=== PATIENT | male | born 1955 | race Caucasian/White ===

== ENCOUNTER 2019-12-15 12:53 | Emergency (ER) | payer MEDICARE, SELFPAY ==
[2019-12-15 12:46] VITALS: BP 127/76; PULSE 54; RESP 16; TEMP 36.6; O2SAT 93; BMI 37.0
[2019-12-15 12:54] VITALS: BP 127/76; PULSE 54; RESP 16; O2SAT 94
--- NOTE | 2019-12-15 12:56 | ED_ITS ---
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 It lasted about 30-45 minutes. Bending over and coughing seemed to make it worse. Pain is described in the center of his chest. He received Nitro x1, Asa 324mg, and Fentanyl 100mcg while in route with EMS. He reports he does have h/o heart issue . He states he was working in [place] when he had a heart attack in the past. He last had a stress test 2-3 years ago in [place] . He saw his PCP this am, stress test ordered, pt was taken off Naproxen, had been taking it for arthritis in his knee and chronic lower back pain. Pt is a daily smoker. He denies drug use. 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) Associated symptoms: Reports dyspnea Review of Systems General: Reports: 10 or more systems reviewed and unremarkable except in HPI and below Card: Reports: chest pain Resp: Reports: shortness of breath PFS ED PFSH: Statuses (acute, chronic, etc) shown below reflect problem list status as previously entered and may not be historically accurate Medical History (Updated 12/15/19 @ 16:08 by Woody Hudson DO) COPD (chronic obstructive pulmonary disease) GERD (gastroesophageal reflux disease) Seizure TIA (transient ischemic attack) Surgical History (Updated 12/15/19 @ 13:08 by Jose Rodriguez LPN) H/O knee surgery LEFT History of tonsillectomy and adenoidectomy Family History (Updated 11/04/19 @ 11:40 by Aura Britt LPN) Father Alzheimer disease Mother COPD (chronic obstructive pulmonary disease) CAD (coronary artery disease) Diabetes Stroke Cancer Hypertension Brother COPD (chronic obstructive pulmonary disease) Sister Stroke Other Glaucoma Social History Smoking and tobacco status: current some day smoker Physical Exam Const: COMMON NORMALS: no apparent distress, average body habitus, oriented x3, no limitations, healthy appearing, alert and well nourished HENMT: COMMON NORMALS: normocephalic, head/scalp atraumatic, hearing grossly normal bilaterally, external ears normal, external nose normal and moist oral mucous membranes HEAD & SCALP: normocephalic and atraumatic NOSE: external nose normal EXTERNAL EAR: Yes external ears normal Eye: COMMON NORMALS: PERRL, EOMs intact bilaterally, conjunctivae normal and no scleral icterus CONJUNCTIVA: Yes conjunctivae normal PUPIL: Yes PERRL Neck/C-Spine: COMMON NORMALS: full ROM, no lymphadenopathy, supple, no meningeal signs and no JVD Chest: COMMONS NORMALS: inspection of chest normal and palpation of chest normal Resp: COMMON NORMALS: normal respiratory effort, no retractions, no use of accessory muscles, clear to auscultation bilaterally and percussion normal AUSCULTATION: clear to auscultation bilaterally PERCUSSION: percussion normal Cardio: COMMON NORMALS: no JVD, regular rate, regular rhythm, S1 normal heart sound, S2 normal heart sound, no gallops, no clicks, no murmurs, no rub and peripheral pulses 2+ throughout RATE: regular rate RHYTHM: regular rhythm HEART SOUNDS: S1 normal and S2 normal PERIPHERAL PULSES: pulses 2+ throughout GI: COMMON NORMALS: normal to inspection, nondistended, normoactive bowel sounds, soft to palpation, non-tender, no hepatosplenomegaly, no masses and no bruits PALPATION: Yes soft and Yes no hepatosplenomegaly Extremity: COMMON NORMALS: normal to inspection, full ROM, normal capillary refill, no clubbing, cyanosis or edema, no calf tenderness and no pedal edema Neuro: COMMON NORMALS: oriented x3 SENSORIUM/ORIENTATION: Yes alert MENINGEAL SIGNS: Yes no meningeal signs Skin: COMMON NORMALS: no rashes or lesions noted, no wounds, skin turgor normal, no jaundice, no petechiae and no mottling GENERAL SKIN EXAM: no rashes or lesions noted and turgor normal Course Vital Signs: Vital signs: Vital Signs Temperature 97.8 F 12/15/19 12:46 Pulse Rate 52 L 12/15/19 14:22 Respiratory Rate 16 12/15/19 12:54 Blood Pressure 135/79 12/15/19 14:22 Pulse Oximetry 95 12/15/19 14:22 MDM - Chest Pain Lab Data: Attestation: I reviewed the patient's lab results. Labs: Lab Results 12/15/19 12/15/19 12/15/19 Range/Units 13:03 13:03 13:03 WBC 6.5 (4.0-10.0) 10^3/ uL RBC 4.89 (4.1-5.3) 10^6/u L Hgb 14.7 (11.7-16.6) g/dL Hct 42.3 (42.0-52.0) % MCV 86.5 (80-94) fL MCH 30.1 (28.0-34.0) pg MCHC 34.8 (30.0-36.0) g/dL RDW 12.0 L (12.1-15.1) % Plt Count 286 (130-400) 10^3/c mm MPV 10.1 (7.4-10.4) fL Neut % (Auto) 52.9 % Lymph % (Auto) 31.7 % [place] % (Auto) 10.9 % Eos % (Auto) 3.4 % Baso % (Auto) 0.8 % Neut # (Auto) 3.4 (1.8-7.7) 10^3/u L Lymph # (Auto) 2.1 (0.8-4.8) 10^3/u L [place] # (Auto) 0.7 (0.2-0.9) 10^3/u L Eos # (Auto) 0.2 (0.0-0.8) 10^3/u L Baso # (Auto) 0.1 (0.0-0.1) 10^3/u L Nucleated RBC % (a uto) 0 % Nucleated RBCs # 0.0 /100WBC Sodium 139 (136-145) mmol/L Potassium 4.6 (3.5-5.1) mmol/L Chloride 102 (98-107) mmol/L Carbon Dioxide 23 (22-29) mmol/L Anion Gap 18.6 (5-19) BUN 14 (8-23) mg/dL Creatinine 1.2 (0.7-1.2) mg/dL GFR Calculation 61.0 L (90-130) mL/min Glucose 108 (65-115) mg/dL Calcium 10.2 (8.5-10.5) mg/dL Total Bilirubin 0.3 (0.15-1.2) mg/dL AST 19 (0-40) U/L ALT 17 (0-41) U/L Alkaline Phosphata se 74 (40-130) IU/L Troponin T Baselin e 11 (0-15) ng/mL Troponin T 120 Min alfonso (0-15) ng/mL Delta Troponin T (0-10) ABS# NT-Pro-B Natriuret Pep 23 (0-125) pg/mL Total Protein 7.6 (6.6-8.7) g/dL Albumin 4.3 (3.5-5.2) g/dL Globulin 3.3 (1.3-4.6) g/dL 12/15/19 Range/Units 15:16 WBC (4.0-10.0) 10^3/ uL RBC (4.1-5.3) 10^6/u L Hgb (11.7-16.6) g/dL Hct (42.0-52.0) % MCV (80-94) fL MCH (28.0-34.0) pg MCHC (30.0-36.0) g/dL RDW (12.1-15.1) % Plt Count (130-400) 10^3/c mm MPV (7.4-10.4) fL Neut % (Auto) % Lymph % (Auto) % [place] % (Auto) % Eos % (Auto) % Baso % (Auto) % Neut # (Auto) (1.8-7.7) 10^3/u L Lymph # (Auto) (0.8-4.8) 10^3/u L [place] # (Auto) (0.2-0.9) 10^3/u L Eos # (Auto) (0.0-0.8) 10^3/u L Baso # (Auto) (0.0-0.1) 10^3/u L Nucleated RBC % (a uto) % Nucleated RBCs # /100WBC Sodium (136-145) mmol/L Potassium (3.5-5.1) mmol/L Chloride (98-107) mmol/L Carbon Dioxide (22-29) mmol/L Anion Gap (5-19) BUN (8-23) mg/dL Creatinine (0.7-1.2) mg/dL GFR Calculation (90-130) mL/min Glucose (65-115) mg/dL Calcium (8.5-10.5) mg/dL Total Bilirubin (0.15-1.2) mg/dL AST (0-40) U/L ALT (0-41) U/L Alkaline Phosphata se (40-130) IU/L Troponin T Baselin e (0-15) ng/mL Troponin T 120 Min alfonso 9.63 (0-15) ng/mL Delta Troponin T -1.37 L (0-10) ABS# NT-Pro-B Natriuret Pep (0-125) pg/mL Total Protein (6.6-8.7) g/dL Albumin (3.5-5.2) g/dL Globulin (1.3-4.6) g/dL Imaging Data^: CXR: Attestation: I personally reviewed and interpreted this imaging study as follows: Radiologist's impression: Patient: Melvin Leiva #: [id number] : 5Acct#:[id number] Age/Sex: 64 / MADM Date: 12/15/19 [facility] Attending Dr: Ordering Provider/Ordering MD: Woody Hudson DO Date of Service: 12/15/19 Procedure(s): XR chest 1V portable [id number] Accession Number(s): [id number] Report Number: [id number] WS: [id number] Portable AP upright chest, 12/15/2019 Clinical Data: chest pain Comparison: Portable chest, 08/04/2019. Findings: No nodules, masses or effusions are seen. The heart is normal. The pulmonary vascularity is not increased. No pneumonia or pneumothorax is seen. The aortic arch and descending aorta minimally tortuous. Monitor leads on the chest wall. XR/XR chest 1V portable [id number] Impression: Atherosclerosis. Dictated By:Mariangel Spangler MD EKG Data^: EKG 1: Attestation: I personally reviewed and interpreted this EKG as follows: Prior EKG tracings: available for review Computer generated interpretation: Date of Service: 12/15/19 Procedure(s): ECG 12 lead EKG Accession Number(s): [id number] Report Number: [id number] Measurements Intervals [place] Rate: 53 P: 20 MO: 136 QRS: -5 QRSD: 116 T: 11 QT: 429 QTc: 403 SINUS BRADYCARDIA INCOMPLETE RIGHT BUNDLE BRANCH BLOCK [90+ ms QRS DURATION, TERMINAL R IN V1/V2, 40+ 40+ 40+ 40+ ms S IN I/aVL/V4/V5/V6] VOLTAGE CRITERIA FOR LVH [MEETS CRITERIA IN ONE OF: R(aVL), S(V1), R(V5), R(V (V5/V6)+S(V1)] Compared to ECG 08/04/2019 14:28:58 No significant changes [id number] [id number] EKG 2: Attestation: I personally reviewed and interpreted this EKG as follows: Computer generated interpretation: Date of Service: 12/15/19 Procedure(s): ECG 12 lead EKG Accession Number(s): [id number] Report Number: [id number] Measurements Intervals [place] Rate: 50 P: 18 MO: 144 QRS: -5 QRSD: 122 T: 13 QT: 416 QTc: 380 SINUS BRADYCARDIA POSSIBLE RIGHT VENTRICULAR CONDUCTION DELAY [RSR (QR) IN V1/V2] VOLTAGE CRITERIA FOR LVH [MEETS CRITERIA IN ONE OF: R(aVL), S(V1), R(V5), R(V5/V6)+S(V1)] POSSIBLE LATERAL MYOCARDIAL INFARCTION , PROBABLY OLD [30 ms Q WAVE IN I/aVL/V5/V6] Compared to ECG 08/04/2019 14:28:58 Myocardial infarct finding now present Incomplete right bundle-branch block no longer present [id number] [id number] Discharge Plan Discharge Patient Disposition: Home, Self-Care Clinical Impression: Chest pain Qualifiers: Chest pain type: other chest pain Qualified Code(s): R07.89 - Other chest pain Condition: Stable Prescriptions: New ibuprofen 800 mg tablet 800 mg PO QID PRN (Reason: pain) Qty: 20 RF: 0 No Action ranitidine HCl [Zantac Maximum Strength] 150 mg tablet 300 mg PO BID RF: 0 potassium chloride [Klor-Con 10] 10 mEq tablet extended release 10 meq PO DAILY RF: 0 albuterol sulfate [ProAir HFA] 90 mcg/actuation HFA aerosol inhaler 2 puff INHALATION Q6H PRN (Reason: Shortness Of Breath) RF: 0 divalproex 250 mg tablet,delayed release (DR/EC) 250 mg PO TID RF: 0 mecobalamin (vitamin B12) 5,000 mcg tablet,disintegrating 5,000 mcg PO DAILY RF: 0 omega-3 fatty acids 1,000 mg capsule 1,000 mg PO DAILY RF: 0 aspirin 81 mg tablet,delayed release (DR/EC) 81 mg PO DAILY RF: 0 diphenhydramine HCl [Allergy Relief(diphenhydramin)] 25 mg capsule 50 mg PO DAILY PRN (Reason: Allergy Symptoms) RF: 0 atorvastatin 20 mg Tablet 20 mg PO DAILY RF: 0 lisinopril 10 mg tablet 10 mg PO DAILY RF: 0 Luis's wort 300 mg Capsule 300 mg PO DAILY RF: 0 Symbicort 160-4.5 mcg/actuation HFA aerosol inhaler 2 puff INHALATION BID RF: 0 levetiracetam 500 mg tablet extended release 24 hr 500 mg PO BID RF: 0 Discharge Orders: Discharge Order (Routine); Ordered 12/15/19 Ordered By: Woody Hudson Referrals: Cece De Anda DO [Primary Care Provider] - Coding Level of Care Code ED Manager Legal for Chg Fwd Exam Problem Focused The documentation recorded by the Jennifer rosen Dani Elizabeth, LPN, accurately reflects the service I personally performed and the decisions made by Tristan rooney Donald P, DO Dec 15, 2019 12:53
--- NOTE | 2019-12-15 13:00 | XR_ITS ---
WS: [id number] Portable AP upright chest, 12/15/2019 Clinical Data: chest pain Comparison: Portable chest, 08/04/2019. Findings: No nodules, masses or effusions are seen. The heart is normal. The pulmonary vascularity is not increased. No pneumonia or pneumothorax is seen. The aortic arch and descending aorta minimally tortuous. Monitor leads on the chest wall. XR/XR chest 1V portable [id number] Impression: Atherosclerosis.
--- NOTE | 2019-12-15 13:00 | ECG_ITS ---
Measurements Intervals [place] Rate: 53 P: 20 [place]: 136 QRS: -5 QRSD: 116 T: 11 QT: 429 QTc: 403 SINUS BRADYCARDIA INCOMPLETE RIGHT BUNDLE BRANCH BLOCK [90+ ms QRS DURATION, TERMINAL R IN V1/V2, 40+ ms S IN I/aVL/V4/V5/V6] VOLTAGE CRITERIA FOR LVH [MEETS CRITERIA IN ONE OF: R(aVL), S(V1), R(V5), R(V (V5/V6)+S(V1)] Compared to ECG 08/04/2019 14:28:58 No significant changes Electronically Signed On 12-15-2019 19:59:25 PECAN SHELLER by Felix Mays M.D. [id number] ken
[2019-12-15 13:13] LABS: Basophils # 0.1 10^3/uL (0.0-0.1); Basophils % 0.8 %; Eosinophils # 0.2 10^3/uL (0.0-0.8); Eosinophils % 3.4 %; Hematocrit 42.3 % (42.0-52.0); Hemoglobin 14.7 g/dL (11.7-16.6); Lymphocytes # 2.1 10^3/uL (0.8-4.8); Lymphocytes % 31.7 %; Mean Corpuscular HGB Conc 34.8 g/dL (30.0-36.0); Mean Corpuscular Hemoglobin 30.1 pg (28.0-34.0); Mean Corpuscular Volume 86.5 fL (80-94); Mean Platelet Volume 10.1 fL (7.4-10.4); Monocytes # 0.7 10^3/uL (0.2-0.9); Monocytes % 10.9 %; Neutrophils # 3.4 10^3/uL (1.8-7.7); Neutrophils % 52.9 %; Nucleated Red Blood Cells % 0 %; Platelet Count 286 10^3/cmm (130-400); Red Blood Count 4.89 10^6/uL (4.1-5.3); White Blood Count 6.5 10^3/uL (4.0-10.0)
[2019-12-15 13:40] LABS: Troponin(5th) Baseline 11 ng/mL (0-15)
[2019-12-15 13:47] LABS: Alanine Aminotransferase 17 U/L (0-41); Albumin Level 4.3 g/dL (3.5-5.2); Alkaline Phosphatase 74 IU/L (40-130); Anion Gap 18.6 (5-19); Aspartate Amino Transferase 19 U/L (0-40); Blood Urea Nitrogen 14 mg/dL (8-23); Calcium 10.2 mg/dL (8.5-10.5); Carbon Dioxide 23 mmol/L (22-29); Chloride 102 mmol/L (98-107); Globulin 3.3 g/dL (1.3-4.6); Glucose 108 mg/dL (65-115); NT Pro B Type Natriuretic Pept 23 pg/mL (0-125); Potassium 4.6 mmol/L (3.5-5.1); Sodium 139 mmol/L (136-145); Total Bilirubin 0.3 mg/dL (0.15-1.2); Total Protein 7.6 g/dL (6.6-8.7)
[2019-12-15 14:22] VITALS: BP 135/79; PULSE 52; O2SAT 95
[2019-12-15 15:55] LABS: Troponin 5 2HR 9.63 ng/mL (0-15); Troponin 5 2HR Delta -1.37 ABS# (0-10)
[2019-12-15 16:24] VITALS: BP 136/82; PULSE 57; RESP 17; O2SAT 94
--- NOTE | 2019-12-15 19:00 | ECG_ITS ---
Measurements Intervals [place] Rate: 50 P: 18 [place]: 144 QRS: -5 QRSD: 122 T: 13 QT: 416 QTc: 380 SINUS BRADYCARDIA POSSIBLE RIGHT VENTRICULAR CONDUCTION DELAY [RSR (QR) IN V1/V2] VOLTAGE CRITERIA FOR LVH [MEETS CRITERIA IN ONE OF: R(aVL), S(V1), R(V5), R (V5/V6)+S(V1)] POSSIBLE LATERAL MYOCARDIAL INFARCTION , PROBABLY OLD [30 ms Q WAVE IN I/aVL/V5/V6] Compared to ECG 08/04/2019 14:28:58 Myocardial infarct finding now present Incomplete right bundle-branch block no longer present Electronically Signed On 12-15-2019 20:09:06 REVENUE COLLECTOR by Felix Mays M.D. [id number]
== END 2019-12-15 16:25 | disposition home or self-care (01) ==
PROVIDERS: Emergency Provider Family Medicine; Family Provider Family Medicine; PCP Family Medicine
DX: R07.89 Other chest pain (principal); Z79.82 Long term (current) use of aspirin; J44.9 Chronic obstructive pulmonary disease, unspecified; Z86.73 Personal history of transient ischemic attack (TIA), and cerebral infarction without residual deficits; F17.210 Nicotine dependence, cigarettes, uncomplicated; K21.9 Gastro-esophageal reflux disease without esophagitis
CPT/HCPCS: 36415; 71045; 80053; 83880; 84484; 85025; 93005; 99283; 99284

== ENCOUNTER 2020-03-02 19:07 | Emergency (ER) | payer MEDICARE, SELFPAY ==
[2020-03-02 19:18] VITALS: BMI 37.9
[2020-03-02 19:23] VITALS: BP 149/81; PULSE 77; RESP 16; TEMP 36.5; O2SAT 94
--- NOTE | 2020-03-02 19:25 | PC.NURSE ---
Patient states he was driving a lot today and was coming back from [place] and started having chest pain. Patient states the pain is located in the sternum. Patient states that the pain is 8/10 and feels like someone is poking him in the middle of his chest .
--- NOTE | 2020-03-02 19:55 | ECG_ITS ---
Measurements Intervals [place] Rate: 74 P: 42 [place]: 160 QRS: -18 QRSD: 110 T: 15 QT: 355 QTc: 395 SINUS RHYTHM INCOMPLETE RIGHT BUNDLE BRANCH BLOCK VOLTAGE CRITERIA FOR LVH [MEETS CRITERIA IN ONE OF: R(aVL), S(V1), R(V5), R(V (V5/V6)+S(V1)] Compared to ECG 12/15/2019 15:19:53 Incomplete right bundle-branch block now present Sinus bradycardia no longer present Myocardial infarct finding no longer present Electronically Signed On 03-03-2020 7:10:53 CDT by Debo Bowles M.D. [id number] f
--- NOTE | 2020-03-02 19:55 | XR_ITS ---
WS: [id number] PORTABLE CHEST HISTORY: chest pain. COMPARISON: 12/15/2019 Interstitial thickening throughout both lungs. New area of increasing consolidation in the RIGHT lowe r lobe. No pleural effusion or pneumothorax. Cardiac size: Mildly enlarged cardiac silhouette. Mediastinum/Aorta: Mild atherosclerosis aorta. No osseous abnormality seen. XR/XR chest 1V portable [id number] IMPRESSION: 1. New increasing opacification in the RIGHT lower lobe. May be an area of ate lectasis or pneumonia. 2. Chronic interstitial lung disease.
--- NOTE | 2020-03-02 20:19 | ED_ITS ---
HPI - Chest Pain General: Chief Complaint: Chest Pain Stated Complaint: cp Time Seen by Provider: 03/02/20 19:30 Source: patient Mode of arrival: ambulatory Limitations: no limitations History of Present Illness: MD complaint: chest pain Onset (ago): minute(s) (45) Timing of current episode: constant and still present Prior episodes: Yes Onset: during rest and during exertion Pain location: substernal Pain radiation: none Severity: severe Quality: sharp Relieving factors: nothing Exacerbating factors: exertion Associated symptoms: Deny abdominal pain, dyspnea, fever(s), nausea, palpitations or vomiting Treatment prior to arrival: none Review of Systems General: Reports: 10 or more systems reviewed and unremarkable except in HPI and below Const: Denies: fever, chills or body aches Eyes: Denies: change in vision or blurry vision ENMT: Denies: throat pain, enlarged tonsils, painful swallowing, hoarseness, mouth pain or swelling of lips/tongue Card: Reports: chest pain; Denies: palpitations, irregular heart rhythm, edema or swelling of feet/ankles Resp: Denies: shortness of breath, productive cough or non-productive cough GI: Denies: abdominal pain, nausea or vomiting : Denies: flank pain, painful urination, urinary frequency, urinary urgency or urinary hesitancy Musc: Denies: neck pain, back pain or extremity swelling Skin/Breast: Denies: rash, itching or redness Neuro: Denies: headache, numbness in extremities or weakness in extremities Endo: Denies: excessive urination, excessive thirst or tired all the time COUNT INCLUDES THE [facility] ED PFSH: Medical History (Updated 03/02/20 @ 22:47 by Adamaris [place] [facility] [place] COPD (chronic obstructive pulmonary disease) GERD (gastroesophageal reflux disease) Seizure TIA (transient ischemic attack) Surgical History (Updated 12/15/19 @ 13:08 by Jose Rodriguez LPN) H/O knee surgery LEFT History of tonsillectomy and adenoidectomy Family History (Updated 11/04/19 @ 11:40 by Aura Britt LPN) Father Alzheimer disease Mother COPD (chronic obstructive pulmonary disease) CAD (coronary artery disease) Diabetes Stroke Cancer Hypertension Brother COPD (chronic obstructive pulmonary disease) Sister Stroke Other Glaucoma Social History (Reviewed 12/15/19 @ 13:01 by LIZ Mccall Smoking and tobacco status: former smoker Physical Exam Const: COMMON NORMALS: no apparent distress, average body habitus, oriented x3, no limitations, healthy appearing, alert and well nourished HENMT: COMMON NORMALS: normocephalic, head/scalp atraumatic and moist oral mucous membranes HEAD & SCALP: normocephalic and atraumatic Eye: COMMON NORMALS: PERRL, EOMs intact bilaterally, conjunctivae normal and no scleral icterus CONJUNCTIVA: Yes conjunctivae normal PUPIL: Yes PERRL Neck/C-Spine: COMMON NORMALS: full ROM, supple, no meningeal signs, no JVD and no carotid bruits Chest: COMMONS NORMALS: inspection of chest normal and palpation of chest normal Resp: COMMON NORMALS: normal respiratory effort, no retractions, no use of accessory muscles, clear to auscultation bilaterally and percussion normal AUSCULTATION: clear to auscultation bilaterally PERCUSSION: percussion normal Cardio: COMMON NORMALS: no JVD, regular rate, regular rhythm, S1 normal heart sound, S2 normal heart sound, no gallops, no clicks, no murmurs, no rub and peripheral pulses 2+ throughout RATE: regular rate RHYTHM: regular rhythm HEART SOUNDS: S1 normal and S2 normal PERIPHERAL PULSES: pulses 2+ throughout GI: COMMON NORMALS: normal to inspection, nondistended, normoactive bowel sounds, soft to palpation, non-tender, no hepatosplenomegaly, no masses and no bruits PALPATION: Yes soft and Yes no hepatosplenomegaly : COMMON NORMALS: Yes no CVA tenderness BLADDER/KIDNEY EXAM: Yes no CVA tenderness Back/Pelvis: COMMON NORMALS: no CVA tenderness Extremity: COMMON NORMALS: normal to inspection, full ROM, normal capillary refill, no calf tenderness and no pedal edema Neuro: COMMON NORMALS: oriented x3 SENSORIUM/ORIENTATION: Yes alert MENINGEAL SIGNS: Yes no meningeal signs Skin: COMMON NORMALS: no rashes or lesions noted, no wounds, skin turgor normal, no jaundice, no petechiae and no mottling GENERAL SKIN EXAM: no rashes or lesions noted and turgor normal Course Reevaluation(s): Reevaluation #1: Discussed his lab and imaging findings with him. Negative for acute findings. Negative troponin x2. We will discharge him home with no new orders. He voiced understanding and he is in agreement with the plan Time: 22:45 Vital Signs: Vital signs: Vital Signs Temperature 97.7 F 03/02/20 19:23 Pulse Rate 65 03/02/20 22:16 Respiratory Rate 14 03/02/20 22:16 Blood Pressure 130/83 03/02/20 22:16 Pulse Oximetry 94 03/02/20 22:16 MDM - Chest Pain MDM Narrative: Medical decision making narrative: 64-year-old gentleman who presents to the emergency department with chest pain. Evaluation in the ED is unremarkable including negative high-sensitivity troponin x2. He is low risk for pulmonary embolism. He is discharged home with no new orders. Lab Data: Labs: Lab Results 03/02/20 03/02/20 03/02/20 Range/Units 20:05 20:05 20:05 WBC 8.5 (4.0-10.0) 10^3/ uL RBC 4.50 (4.1-5.3) 10^6/u L Hgb 14.3 (11.7-16.6) g/dL Hct 42.1 (42.0-52.0) % MCV 93.6 (80-94) fL MCH 31.8 (28.0-34.0) pg MCHC 34.0 (30.0-36.0) g/dL RDW 12.1 (12.1-15.1) % Plt Count 294 (130-400) 10^3/c mm MPV 9.7 (7.4-10.4) fL Neut % (Auto) 55.7 % Lymph % (Auto) 26.6 % Banner % (Auto) 12.3 % Eos % (Auto) 4.1 % Baso % (Auto) 0.7 % Neut # (Auto) 4.8 (1.8-7.7) 10^3/u L Lymph # (Auto) 2.3 (0.8-4.8) 10^3/u L Banner # (Auto) 1.1 H (0.2-0.9) 10^3/u L Eos # (Auto) 0.4 (0.0-0.8) 10^3/u L Baso # (Auto) 0.1 (0.0-0.1) 10^3/u L Nucleated RBC % (a uto) 0 % Nucleated RBCs # 0.0 /100WBC Sodium 137 (136-145) mmol/L Potassium 4.4 (3.5-5.1) mmol/L Chloride 99 (98-107) mmol/L Carbon Dioxide 26 (22-29) mmol/L Anion Gap 16.4 (5-19) BUN 16 (8-23) mg/dL Creatinine 1.3 H (0.7-1.2) mg/dL GFR Calculation 55.6 L (90-130) mL/min Glucose 159 H (65-115) mg/dL Calculated Osmolal ity 284 L (285-295) mOsm/k g Calcium 9.6 (8.5-10.5) mg/dL Total Bilirubin 0.2 (0.15-1.2) mg/dL AST 18 (0-40) U/L ALT 19 (0-41) U/L Alkaline Phosphata se 79 (40-130) IU/L Troponin T Baselin e 10 (0-15) ng/mL Troponin T 120 Min teller (0-15) ng/mL NT-Pro-B Natriuret Pep 33 (0-125) pg/mL Total Protein 7.0 (6.6-8.7) g/dL Albumin 4.1 (3.5-5.2) g/dL Globulin 2.9 (1.3-4.6) g/dL Lipase 31 (13-60) U/L 03/02/20 Range/Units 21:45 WBC (4.0-10.0) 10^3/ uL RBC (4.1-5.3) 10^6/u L Hgb (11.7-16.6) g/dL Hct (42.0-52.0) % MCV (80-94) fL MCH (28.0-34.0) pg MCHC (30.0-36.0) g/dL RDW (12.1-15.1) % Plt Count (130-400) 10^3/c mm MPV (7.4-10.4) fL Neut % (Auto) % Lymph % (Auto) % Banner % (Auto) % Eos % (Auto) % Baso % (Auto) % Neut # (Auto) (1.8-7.7) 10^3/u L Lymph # (Auto) (0.8-4.8) 10^3/u L Banner # (Auto) (0.2-0.9) 10^3/u L Eos # (Auto) (0.0-0.8) 10^3/u L Baso # (Auto) (0.0-0.1) 10^3/u L Nucleated RBC % (a uto) % Nucleated RBCs # /100WBC Sodium (136-145) mmol/L Potassium (3.5-5.1) mmol/L Chloride (98-107) mmol/L Carbon Dioxide (22-29) mmol/L Anion Gap (5-19) BUN (8-23) mg/dL Creatinine (0.7-1.2) mg/dL GFR Calculation (90-130) mL/min Glucose (65-115) mg/dL Calculated Osmolal ity (285-295) mOsm/k g Calcium (8.5-10.5) mg/dL Total Bilirubin (0.15-1.2) mg/dL AST (0-40) U/L ALT (0-41) U/L Alkaline Phosphata se (40-130) IU/L Troponin T Baselin e (0-15) ng/mL Troponin T 120 Min teller 8.63 (0-15) ng/mL NT-Pro-B Natriuret Pep (0-125) pg/mL Total Protein (6.6-8.7) g/dL Albumin (3.5-5.2) g/dL Globulin (1.3-4.6) g/dL Lipase (13-60) U/L Imaging Data^: CXR: Attestation: I personally reviewed and interpreted this imaging study as follows: My impression: Negative for acute findings. EKG Data^: EKG 1: Attestation: I personally reviewed and interpreted this EKG as follows: EKG interpretation date: 03/02/20 EKG interpretation time: 19:28 Prior EKG tracings: not available for review Interpretation: Normal sinus rhythm. Heart rate 74 bpm. Incomplete right bundle branch block. LVH. EKG 2: Attestation: I personally reviewed and interpreted this EKG as follows: EKG interpretation date: 03/02/20 EKG interpretation time: 22:01 Prior EKG tracings: available for review Interpretation: Unchanged from earlier today Discharge Plan Discharge Patient Disposition: Home, Self-Care Clinical Impression: Chest pain Qualifiers: Chest pain type: unspecified Qualified Code(s): R07.9 - Chest pain, unspecified Condition: Stable Prescriptions: Continued ranitidine HCl [Zantac Maximum Strength] 150 mg tablet 300 mg PO BID RF: 0 potassium chloride [Klor-Con 10] 10 mEq tablet extended release 10 meq PO DAILY RF: 0 albuterol sulfate [ProAir HFA] 90 mcg/actuation HFA aerosol inhaler 2 puff INHALATION Q6H PRN (Reason: Shortness Of Breath) RF: 0 divalproex 250 mg tablet,delayed release (DR/EC) 250 mg PO TID RF: 0 mecobalamin (vitamin B12) 5,000 mcg tablet,disintegrating 5,000 mcg PO DAILY RF: 0 omega-3 fatty acids 1,000 mg capsule 1,000 mg PO DAILY RF: 0 aspirin 81 mg tablet,delayed release (DR/EC) 81 mg PO DAILY RF: 0 diphenhydramine HCl [Allergy Relief(diphenhydramin)] 25 mg capsule 50 mg PO DAILY PRN (Reason: Allergy Symptoms) RF: 0 atorvastatin 20 mg Tablet 20 mg PO DAILY RF: 0 lisinopril 10 mg tablet 10 mg PO DAILY RF: 0 [place]'s wort 300 mg Capsule 300 mg PO DAILY RF: 0 Symbicort 160-4.5 mcg/actuation HFA aerosol inhaler 2 puff INHALATION BID RF: 0 levetiracetam 500 mg tablet extended release 24 hr 500 mg PO BID RF: 0 ibuprofen 800 mg tablet 800 mg PO QID PRN (Reason: pain) Qty: 20 RF: 0 Discharge Orders: Discharge Order (Routine); Ordered 03/02/20 Ordered By: Adamaris Lobato Referrals: Cece De Anda DO [Primary Care Provider] - 1-3 days Patient Instructions: Chest Pain (ED) Activity Restrictions/Additional Instructions: Return for any new or worsening symptoms. Follow-up with your primary care provider within 3 days. Take your home medications as prescribed. Coding Level of Care Code ED Self Rising Flour Mixer for Chg Fwd Exam Comprehensive
--- NOTE | 2020-03-02 20:23 | PC.NURSE ---
XRAY IN ROOM
[2020-03-02 20:28] VITALS: BP 116/75; PULSE 75; RESP 17; O2SAT 94
[2020-03-02] MEDS: nitroglycerin 0.4 mg sublingual Tablet SUBLINGUAL (20:31)
[2020-03-02] MEDS: aspirin 81 mg Chew Tablet 324 MG PO (20:32)
[2020-03-02 20:33] VITALS: BP 97/73; PULSE 77; RESP 17; O2SAT 94
--- NOTE | 2020-03-02 20:35 | PC.NURSE ---
PAIN 4/10 AFTER 1 NITRO
[2020-03-02 20:41] LABS: Troponin(5th) Baseline 10 ng/mL (0-15)
[2020-03-02 20:47] LABS: Basophils # 0.1 10^3/uL (0.0-0.1); Basophils % 0.7 %; Eosinophils # 0.4 10^3/uL (0.0-0.8); Eosinophils % 4.1 %; Hematocrit 42.1 % (42.0-52.0); Hemoglobin 14.3 g/dL (11.7-16.6); Lymphocytes # 2.3 10^3/uL (0.8-4.8); Lymphocytes % 26.6 %; Mean Corpuscular Hemoglobin 31.8 pg (28.0-34.0); Mean Corpuscular Volume 93.6 fL (80-94); Mean Platelet Volume 9.7 fL (7.4-10.4); Monocytes # 1.1 10^3/uL (0.2-0.9); Monocytes % 12.3 %; Neutrophils # 4.8 10^3/uL (1.8-7.7); Neutrophils % 55.7 %; Nucleated Red Blood Cells % 0 %; Platelet Count 294 10^3/cmm (130-400); Red Cell Distribution Width 12.1 % (12.1-15.1); White Blood Count 8.5 10^3/uL (4.0-10.0)
[2020-03-02 20:50] LABS: Alanine Aminotransferase 19 U/L (0-41); Albumin Level 4.1 g/dL (3.5-5.2); Alkaline Phosphatase 79 IU/L (40-130); Anion Gap 16.4 (5-19); Aspartate Amino Transferase 18 U/L (0-40); Blood Urea Nitrogen 16 mg/dL (8-23); Calcium 9.6 mg/dL (8.5-10.5); Carbon Dioxide 26 mmol/L (22-29); Chloride 99 mmol/L (98-107); Globulin 2.9 g/dL (1.3-4.6); Glomerular Filtration Rate 55.6 mL/min (90-130); Glucose 159 mg/dL (65-115); Lipase 31 U/L (13-60); NT Pro B Type Natriuretic Pept 33 pg/mL (0-125); Osmolality Calculated 284 mOsm/kg (285-295); Potassium 4.4 mmol/L (3.5-5.1); Sodium 137 mmol/L (136-145); Total Bilirubin 0.2 mg/dL (0.15-1.2)
[2020-03-02 21:09] VITALS: BP 102/69; PULSE 70; RESP 17; O2SAT 93
--- NOTE | 2020-03-02 21:55 | ECG_ITS ---
Measurements Intervals [place] Rate: 65 P: 12 MS: 133 QRS: -21 QRSD: 117 T: -11 QT: 388 QTc: 405 SINUS RHYTHM BORDERLINE LEFT AXIS DEVIATION [QRS AXIS < -20] INCOMPLETE RIGHT BUNDLE BRANCH BLOCK POSSIBLE LEFT VENTRICULAR HYPERTROPHY Compared to ECG 12/15/2019 15:19:53 Incomplete right bundle-branch block now present Sinus bradycardia no longer present Myocardial infarct finding no longer present Electronically Signed On 03-04-2020 16:12:27 CDT by Debo Bowles M.D. [email or web address]
[2020-03-02 22:16] VITALS: BP 130/83; PULSE 65; RESP 14; O2SAT 94
[2020-03-02 22:39] LABS: Troponin 5 2HR 8.63 ng/mL (0-15)
[2020-03-02 22:52] VITALS: BP 139/106; PULSE 67; RESP 16; O2SAT 94
[2020-03-02 22:53] LABS: Troponin 5 2HR Delta -1.37 ABS# (0-10)
== END 2020-03-02 22:54 | disposition home or self-care (01) ==
PROVIDERS: Emergency Provider Family Medicine; Family Provider Family Medicine; PCP Family Medicine
DX: R07.9 Chest pain, unspecified (principal); Z79.82 Long term (current) use of aspirin; J44.9 Chronic obstructive pulmonary disease, unspecified; K21.9 Gastro-esophageal reflux disease without esophagitis; Z86.73 Personal history of transient ischemic attack (TIA), and cerebral infarction without residual deficits; Z87.891 Personal history of nicotine dependence
CPT/HCPCS: 12345; 36415; 71045; 80053; 83690; 83880; 84484; 85025; 93005; 99283

== ENCOUNTER 2020-08-12 12:50 | Emergency (ER) | payer MEDICARE, SELFPAY ==
[2020-08-12 13:00] VITALS: BP 131/72; PULSE 92; RESP 20; TEMP 37.3; O2SAT 97; BMI 39.2
[2020-08-12 13:13] VITALS: BP 119/70; PULSE 84; RESP 18; TEMP 37.3; O2SAT 94
--- NOTE | 2020-08-12 13:21 | XR_ITS ---
WS: [id number] Portable AP upright chest, 08/12/2020 Clinical Data: SOB Comparison: Portable chest, 03/02/2020. Findings: No nodules, masses or effusions are seen. The heart is normal. The pulmonary vascularity is not increased. No pneumonia or pneumothorax is seen. The diaphragms are flattened. XR/XR chest 1V portable [id number] Impression: Hyperinflation.
--- NOTE | 2020-08-12 13:22 | ECG_ITS ---
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 Measurements Intervals [place] Rate: 84 P: 29 [place]: 150 QRS: -12 QRSD: 111 T: 11 QT: 335 QTc: 397 Interpretive Statements SINUS RHYTHM MODERATE INTRAVENTRICULAR CONDUCTION DELAY [110+ ms QRS DURATION] VOLTAGE CRITERIA FOR LVH [MEETS CRITERIA IN ONE OF: R(aVL), S(V1), R(V5), R(V5/V6)+S(V1)] Compared to ECG 03/02/2020 22:00:53 Intraventricular conduction delay now present Incomplete right bundle-branch block no longer present Electronically Signed On 08-12-2020 18:44:01 CDT by Gene Cespdees M.D. [id number]
[2020-08-12 13:30] LABS: Basophils % 0.6 %; Eosinophils # 0.1 10^3/uL (0.0-0.8); Hematocrit 41.9 % (42.0-52.0); Hemoglobin 14.6 g/dL (11.7-16.6); Lymphocytes # 1.3 10^3/uL (0.8-4.8); Mean Corpuscular HGB Conc 34.8 g/dL (30.0-36.0); Mean Corpuscular Hemoglobin 31.7 pg (28.0-34.0); Mean Corpuscular Volume 91.1 fL (80-94); Mean Platelet Volume 9.3 fL (7.4-10.4); Monocytes # 0.8 10^3/uL (0.2-0.9); Monocytes % 11.3 %; Neutrophils # 4.56 10^3/uL (1.8-7.7); Neutrophils % 66.8 %; Nucleated Red Blood Cells % 0 %; Platelet Count 235 10^3/cmm (130-400); Red Cell Distribution Width 11.7 % (12.1-15.1); White Blood Count 6.8 10^3/uL (4.0-10.0)
[2020-08-12 13:33] LABS: Glucose Point of Care 156 mg/dL (70-110)
[2020-08-12 13:46] LABS: INR 0.97 (0.8-1.2)
[2020-08-12 13:49] LABS: D Dimer 0.54 ug/mIFEU (0-0.59)
[2020-08-12 13:56] LABS: Troponin(5th) Baseline 9 ng/L (0-15)
[2020-08-12 13:56] LABS: Add Urine Microscopic? NO
[2020-08-12 14:04] LABS: NT Pro B Type Natriuretic Pept 64 pg/mL (0-125); Procalcitonin 0.04 ng/mL (0-0.5)
[2020-08-12 14:08] LABS: Bilirubin Urine Neg (Negative); Blood Urine Neg (Negative); Glucose Urine UA Norm (Normal); Ketones Urine Negative (Negative); Leukocyte Esterase Urine Negative (Negative); Nitrate Urine Negative (Negative); Protein Urine Neg (Negative); Urine Appearance Clear (CLEAR); Urine Color Yellow (Yellow); Urobilinogen Urine Norm (Negative); pH Urine 7 (5-7)
[2020-08-12] MEDS: sodium chloride 0.9% 1,000 ML 999 ML IV (14:13)
[2020-08-12 14:15] LABS: Alanine Aminotransferase 30 U/L (0-41); Albumin Level 4.4 g/dL (3.5-5.2); Alkaline Phosphatase 67 IU/L (40-130); Anion Gap 16.1 (5-19); Aspartate Amino Transferase 25 U/L (0-40); Blood Urea Nitrogen 10 mg/dL (8-23); Calcium 9.3 mg/dL (8.5-10.5); Carbon Dioxide 21 mmol/L (22-29); Chloride 97 mmol/L (98-107); Globulin 2.6 g/dL (1.3-4.6); Glomerular Filtration Rate 67.2 mL/min (90-130); Glucose 156 mg/dL (65-115); Lipase 25 U/L (13-60); Osmolality Calculated 272 mOsm/kg (285-295); Potassium 4.1 mmol/L (3.5-5.1); Sodium 130 mmol/L (136-145); Total Bilirubin 0.4 mg/dL (0.15-1.2)
[2020-08-12 14:43] LABS: Lactic Sepsis W/Reflex 1.7 mmol/L (0.5-2.2)
[2020-08-12 14:54] VITALS: RESP 20
[2020-08-12] MEDS: morphine 4 mg/mL SDV 1 mL IVP (14:54)
[2020-08-12] MEDS: ondansetron 2 mg/ML SDV 2 mL 4 MG IVP (14:54)
--- NOTE | 2020-08-12 15:22 | ECG_ITS ---
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 Measurements Intervals [place] Rate: 66 P: 25 [place]: 151 QRS: -6 QRSD: 118 T: 10 QT: 378 QTc: 399 Interpretive Statements SINUS RHYTHM INCOMPLETE RIGHT BUNDLE BRANCH BLOCK [90+ ms QRS DURATION, TERMINAL R IN V1/V2, 40+ ms S IN I/aVL/V4/V5/V6] MODERATE VOLTAGE CRITERIA FOR LVH, CONSIDER NORMAL VARIANT [MEETS CRITERIA IN ONE OF: R(aVL), S(V1), R(V5), R(V5/V6)+S(V1)] Compared to ECG 08/12/2020 13:34:06 Incomplete right bundle-branch block now present Intraventricular conduction delay no longer present Electronically Signed On 08-12-2020 19:16:31 CDT by Gene Cespedes M.D. [id number]
[2020-08-12 15:52] VITALS: BP 165/80; PULSE 73; RESP 18; O2SAT 93
[2020-08-12 16:08] LABS: Troponin 5 2HR 9.28 ng/L (0-15); Troponin 5 2HR Delta 0.28 ABS# (0-10)
[2020-08-12 17:14] VITALS: BP 118/69; PULSE 77; RESP 22; TEMP 37.2; O2SAT 92
--- NOTE | 2020-08-14 11:17 | ED_ITS ---
HPI - Altered Mental Status General: Chief Complaint: Altered Mental Status Stated Complaint: SOB/ HEADACHE Time Seen by Provider: 08/12/20 13:01 History of Present Illness: HPI narrative: This patient is a 65-year-old male who comes in today with some symptoms of confusion. He said he just has not felt that well and has been a little bit short of breath. He was driving his sister to physical therapy this morning and she noted that he was driving somewhat erratically. When she got physical therapy she called the ambulance to come and get him. He is complaining of some headache and general malaise. He has no other specific complaints. He has no difficulty walking today but did fall a few days ago due to his legs giving out. He also has a case of shingles currently on the right side of his trunk. He was seen at his primary care office and started on medications for that. He is not sure what it was. He was given a shot and some pills. MD complaint: confusion and weakness Onset (ago): unknown Timing confirmed by: family member Severity: moderate Review of Systems General: Reports: 10 or more systems reviewed and unremarkable except in HPI and below Const: Reports: fatigue and malaise; Denies: fever(s) or chills Eyes: Denies: change in vision ENMT: Denies: odynophagia Card: Denies: chest pain or swelling of feet/ankles Resp: Denies: dyspnea, productive cough or non-productive cough GI: Denies: abdominal pain, nausea or vomiting : Denies: flank pain Musc: Denies: neck pain or back pain Skin/Breast: Reports: rash (Shingles) and pruritus Neuro: Reports: headache(s), difficulty walking and confusion; Denies: numbness in extremities or weakness in extremities Uday/Lymph: Denies: easy bruising or easy bleeding PFSH ED PFSH: Medical History COPD (chronic obstructive pulmonary disease) GERD (gastroesophageal reflux disease) Seizure TIA (transient ischemic attack) Surgical History H/O knee surgery LEFT History of tonsillectomy and adenoidectomy Family History Father Alzheimer disease Mother COPD (chronic obstructive pulmonary disease) CAD (coronary artery disease) Diabetes Stroke Cancer Hypertension Brother COPD (chronic obstructive pulmonary disease) Sister Stroke Other Glaucoma Social History Smoking and tobacco status: former smoker Physical Exam Const: COMMON NORMALS: no acute distress, patient oriented x3, no limitations and alert GENERAL APPEARANCE: cooperative and comfortable ORIENTATION/CONSCIOUSNESS: Yes oriented to person, Yes oriented to place and Yes oriented to time HENMT: HEAD & SCALP: normal to inspection FACE & SINUS: normal facial exam Eye: GENERAL EYE: appearance normal, both eyes and all related structures Neck/C-Spine: COMMON NORMALS: supple, no meningeal signs and no JVD Chest: COMMONS NORMALS: normal inspection of the chest Resp: COMMON NORMALS: normal respiratory effort, No use of accessory muscles and clear to auscultation bilaterally AUSCULTATION: clear to auscultation bilaterally Cardio: COMMON NORMALS: no JVD, regular rate, regular rhythm and No murmurs present (Cardio) RATE: regular rate RHYTHM: regular rhythm GI: COMMON NORMALS: Normal to inspection, nondistended, normoactive bowel sounds present, Soft to palpation and non-tender INSPECTION: Yes normal to inspection AUSCULTATION: Yes normoactive bowel sounds PALPATION: Yes Soft to palpation Back/Pelvis: COMMON NORMALS: thoracic and lumbar spine normal to inspection Extremity: COMMON NORMALS: normal to inspection Neuro: JADA COMA SCALE: document GCS findings Jada coma scale eye opening: Spontaneous [place] coma scale verbal response: Orientated Jada coma scale motor response: Obey commands [place] coma scale total score: 15 COMMON NORMALS: patient oriented x3, moves all extremities, no focal motor deficits and no sensory deficits noted SENSORIUM/ORIENTATION: Yes alert, Yes oriented to person, Yes oriented to place and Yes oriented to time MENINGEAL SIGNS: Yes no meningeal signs CRANIAL NERVES: Yes CN normal except as noted COORDINATION/BALANCE: [id number] test normal SPEECH: speech normal GAIT: Yes Normal gait present SENSORY EXAM: Yes extremities COORDINATION: [id number] test normal Psych: COMMON NORMALS: mental status grossly normal, cooperative and normal affect Skin: COMMON NORMALS: turgor normal GENERAL SKIN EXAM: turgor normal RASHES: rashes noted (Vesicular rash in a dermatomal distribution on the right thorax) Course ED course: Patient with an unremarkable work-up here in the ER. Sodium was slightly low at 130 but probably not enough to be causing symptoms. His symptoms may be related to medications that he was put on for the rash. He also has been taking Benadryl for itching. I recommended that he not drive until he feels completely clear headed. I also recommended close follow-up with his primary care doctor. Vital Signs: Vital signs: Vital Signs Temperature 99.0 F 08/12/20 17:14 Pulse Rate 77 08/12/20 17:14 Respiratory Rate 22 H 08/12/20 17:14 Blood Pressure 118/69 08/12/20 17:14 Pulse Oximetry 92 08/12/20 17:14 MDM - Altered Mental Status Lab Data: Labs: Lab Results 08/12/20 08/12/20 08/12/20 Range/Units 13:23 13:23 13:23 WBC 6.8 (4.0-10.0) 10^3/ uL RBC 4.60 (4.1-5.3) 10^6/u L Hgb 14.6 (11.7-16.6) g/dL Hct 41.9 L (42.0-52.0) % MCV 91.1 (80-94) fL MCH 31.7 (28.0-34.0) pg MCHC 34.8 (30.0-36.0) g/dL RDW 11.7 L (12.1-15.1) % Plt Count 235 (130-400) 10^3/c mm MPV 9.3 (7.4-10.4) fL Neut % (Auto) 66.8 % Lymph % (Auto) 19.0 % [place] % (Auto) 11.3 % Eos % (Auto) 2.0 % Baso % (Auto) 0.6 % Neut # (Auto) 4.56 (1.8-7.7) 10^3/u L Lymph # (Auto) 1.3 (0.8-4.8) 10^3/u L [place] # (Auto) 0.8 (0.2-0.9) 10^3/u L Eos # (Auto) 0.1 (0.0-0.8) 10^3/u L Baso # (Auto) 0.0 (0.0-0.1) 10^3/u L Nucleated RBC % (a uto) 0 % Nucleated RBCs # 0.0 /100WBC PT 13.20 (12.1-14.9) SECO NDS INR 0.97 (0.8-1.2) D-Dimer 0.54 (0-0.59) ug/mIFE U Sodium 130 L (136-145) mmol/L Potassium 4.1 (3.5-5.1) mmol/L Chloride 97 L (98-107) mmol/L Carbon Dioxide 21 L (22-29) mmol/L Anion Gap 16.1 (5-19) BUN 10 (8-23) mg/dL Creatinine 1.1 (0.7-1.2) mg/dL GFR Calculation 67.2 L (90-130) mL/min Glucose 156 H (65-115) mg/dL POC Glucose (70-110) mg/dL Calculated Osmolal ity 272 L (285-295) mOsm/k g Lactic Acid (0.5-2.2) mmol/L Calcium 9.3 (8.5-10.5) mg/dL Magnesium 2.0 (1.7-2.3) mg/dL Total Bilirubin 0.4 (0.15-1.2) mg/dL AST 25 (0-40) U/L ALT 30 (0-41) U/L Alkaline Phosphata se 67 (40-130) IU/L Troponin T Baselin e (0-15) ng/L Troponin T 120 Min [place] (0-15) ng/L Delta Troponin T (0-10) ABS# NT-Pro-B Natriuret Pep 64 (0-125) pg/mL Total Protein 7.0 (6.6-8.7) g/dL Albumin 4.4 (3.5-5.2) g/dL Globulin 2.6 (1.3-4.6) g/dL Lipase 25 (13-60) U/L Procalcitonin 0.04 (0-0.5) ng/mL Urine Color (Yellow) Urine Appearance (CLEAR) Urine pH (5-7) Ur Specific Gravit y (1.005-1.030) Urine Protein (Negative) Urine Glucose (UA) (Normal) Urine Ketones (Negative) Urine Blood (Negative) Urine Nitrate (Negative) Urine Bilirubin (Negative) Urine Urobilinogen (Negative) mg/dL Ur Leukocyte Yamile[place] ase (Negative) 08/12/20 08/12/20 08/12/20 Range/Units 13:23 13:29 13:40 WBC (4.0-10.0) 10^3/ uL RBC (4.1-5.3) 10^6/u L Hgb (11.7-16.6) g/dL Hct (42.0-52.0) % MCV (80-94) fL MCH (28.0-34.0) pg MCHC (30.0-36.0) g/dL RDW (12.1-15.1) % Plt Count (130-400) 10^3/c mm MPV (7.4-10.4) fL Neut % (Auto) % Lymph % (Auto) % [place] % (Auto) % Eos % (Auto) % Baso % (Auto) % Neut # (Auto) (1.8-7.7) 10^3/u L Lymph # (Auto) (0.8-4.8) 10^3/u L [place] # (Auto) (0.2-0.9) 10^3/u L Eos # (Auto) (0.0-0.8) 10^3/u L Baso # (Auto) (0.0-0.1) 10^3/u L Nucleated RBC % (a uto) % Nucleated RBCs # /100WBC PT (12.1-14.9) SECO NDS INR (0.8-1.2) D-Dimer (0-0.59) ug/mIFE U Sodium (136-145) mmol/L Potassium (3.5-5.1) mmol/L Chloride (98-107) mmol/L Carbon Dioxide (22-29) mmol/L Anion Gap (5-19) BUN (8-23) mg/dL Creatinine (0.7-1.2) mg/dL GFR Calculation (90-130) mL/min Glucose (65-115) mg/dL POC Glucose 156 (70-110) mg/dL Calculated Osmolal ity (285-295) mOsm/k g Lactic Acid (0.5-2.2) mmol/L Calcium (8.5-10.5) mg/dL Magnesium (1.7-2.3) mg/dL Total Bilirubin (0.15-1.2) mg/dL AST (0-40) U/L ALT (0-41) U/L Alkaline Phosphata se (40-130) IU/L Troponin T Baselin e 9 (0-15) ng/L Troponin T 120 Min [place] (0-15) ng/L Delta Troponin T (0-10) ABS# NT-Pro-B Natriuret Pep (0-125) pg/mL Total Protein (6.6-8.7) g/dL Albumin (3.5-5.2) g/dL Globulin (1.3-4.6) g/dL Lipase (13-60) U/L Procalcitonin (0-0.5) ng/mL Urine Color Yellow (Yellow) Urine Appearance Clear (CLEAR) Urine pH 7 (5-7) Ur Specific Gravit y 1.010 (1.005-1.030) Urine Protein Neg (Negative) Urine Glucose (UA) Norm (Normal) Urine Ketones Negative (Negative) Urine Blood Neg (Negative) Urine Nitrate Negative (Negative) Urine Bilirubin Neg (Negative) Urine Urobilinogen Norm (Negative) mg/dL Ur Leukocyte Yamile[place] ase Negative (Negative) 08/12/20 08/12/20 Range/Units 14:05 15:34 WBC (4.0-10.0) 10^3/ uL RBC (4.1-5.3) 10^6/u L Hgb (11.7-16.6) g/dL Hct (42.0-52.0) % MCV (80-94) fL MCH (28.0-34.0) pg MCHC (30.0-36.0) g/dL RDW (12.1-15.1) % Plt Count (130-400) 10^3/c mm MPV (7.4-10.4) fL Neut % (Auto) % Lymph % (Auto) % [place] % (Auto) % Eos % (Auto) % Baso % (Auto) % Neut # (Auto) (1.8-7.7) 10^3/u L Lymph # (Auto) (0.8-4.8) 10^3/u L [place] # (Auto) (0.2-0.9) 10^3/u L Eos # (Auto) (0.0-0.8) 10^3/u L Baso # (Auto) (0.0-0.1) 10^3/u L Nucleated RBC % (a uto) % Nucleated RBCs # /100WBC PT (12.1-14.9) SECO NDS INR (0.8-1.2) D-Dimer (0-0.59) ug/mIFE U Sodium (136-145) mmol/L Potassium (3.5-5.1) mmol/L Chloride (98-107) mmol/L Carbon Dioxide (22-29) mmol/L Anion Gap (5-19) BUN (8-23) mg/dL Creatinine (0.7-1.2) mg/dL GFR Calculation (90-130) mL/min Glucose (65-115) mg/dL POC Glucose (70-110) mg/dL Calculated Osmolal ity (285-295) mOsm/k g Lactic Acid 1.7 (0.5-2.2) mmol/L Calcium (8.5-10.5) mg/dL Magnesium (1.7-2.3) mg/dL Total Bilirubin (0.15-1.2) mg/dL AST (0-40) U/L ALT (0-41) U/L Alkaline Phosphata se (40-130) IU/L Troponin T Baselin e (0-15) ng/L Troponin T 120 Min [place] 9.28 (0-15) ng/L Delta Troponin T 0.28 (0-10) ABS# NT-Pro-B Natriuret Pep (0-125) pg/mL Total Protein (6.6-8.7) g/dL Albumin (3.5-5.2) g/dL Globulin (1.3-4.6) g/dL Lipase (13-60) U/L Procalcitonin (0-0.5) ng/mL Urine Color (Yellow) Urine Appearance (CLEAR) Urine pH (5-7) Ur Specific Gravit y (1.005-1.030) Urine Protein (Negative) Urine Glucose (UA) (Normal) Urine Ketones (Negative) Urine Blood (Negative) Urine Nitrate (Negative) Urine Bilirubin (Negative) Urine Urobilinogen (Negative) mg/dL Ur Leukocyte Yamilex ase (Negative) Discharge Plan Discharge Patient Disposition: Home Clinical Impression: Migraine Qualifiers: Migraine type: unspecified Status migrainosus presence: without status migrainosus Intractability: not intractable Qualified Code(s): G43.909 - Migraine, unspecified, not intractable, without status migrainosus Herpes zoster Qualifiers: Herpes zoster complications: without complications Qualified Code(s): B02.9 - Zoster without complications Condition: Stable Prescriptions: No Action potassium chloride [Klor-Con 10] 10 mEq tablet extended release 10 meq PO DAILY RF: 0 albuterol sulfate [ProAir HFA] 90 mcg/actuation HFA aerosol inhaler 2 puff INHALATION Q6H PRN (Reason: Shortness Of Breath) RF: 0 divalproex 250 mg tablet,delayed release (DR/EC) 250 mg PO TID RF: 0 mecobalamin (vitamin B12) 5,000 mcg tablet,disintegrating 5,000 mcg PO DAILY RF: 0 omega-3 fatty acids 1,000 mg capsule 1,000 mg PO DAILY RF: 0 aspirin 81 mg tablet,delayed release (DR/EC) 81 mg PO DAILY RF: 0 diphenhydramine HCl [Allergy Relief(diphenhydramin)] 25 mg capsule 100 mg PO DAILY RF: 0 atorvastatin 20 mg Tablet 20 mg PO DAILY RF: 0 lisinopril 10 mg tablet 10 mg PO DAILY RF: 0 Alanson's wort 300 mg Capsule 300 mg PO BID RF: 0 budesonide-formoterol [Symbicort] 160-4.5 mcg/actuation HFA aerosol inhaler 2 puff INHALATION BID RF: 0 levetiracetam 500 mg tablet extended release 24 hr 500 mg PO BID RF: 0 ibuprofen 800 mg tablet 800 mg PO QID PRN (Reason: pain) Qty: 20 RF: 0 valacyclovir 1 gram Tablet 1,000 mg PO TID RF: 0 hydrocodone-acetaminophen 5-325 mg Tablet 1 tab PO Q4H PRN (Reason: Pain) RF: 0 omeprazole 40 mg capsule,delayed release(DR/EC) 40 mg PO DAILY RF: 0 Chantix Starting Month Box 0.5 mg (11)- 1 mg (42) Tablets,Dose Pack 0 ea PO PER PKG DIR RF: 0 Discharge Orders: Discharge Order (Routine); Ordered 08/12/20 Ordered By: Aarti Swann Referrals: Cece De Anda DO [Primary Care Provider] - Discharge Diet: Usual diet Discharge Activity: Resume usual activity Patient Instructions: Herpes Zoster (ED) Activity Restrictions/Additional Instructions: Rest today. Do not drive until you are feeling clear headed. Follow-up with Phoebe Nevarez on Saturday as you are scheduled. Return to the ER if any new or worse symptoms occur before that appointment. Discharge Date/Time: 08/12/20 17:19 Coding Level of Care Code ED Desk Maker for Colby Gonzalez
[2020-08-14 12:46] LABS: Quest SARS-CoV-2 RNA NOT DETECTED (NOT DETECTED)
== END 2020-08-12 17:19 | disposition home or self-care (01) ==
PROVIDERS: Emergency Provider Emergency Medicine; PCP Family Medicine
DX: G43.909 Migraine, unspecified, not intractable, without status migrainosus (principal); B02.9 Zoster without complications; Z79.82 Long term (current) use of aspirin; J44.9 Chronic obstructive pulmonary disease, unspecified; Z86.73 Personal history of transient ischemic attack (TIA), and cerebral infarction without residual deficits; Z87.891 Personal history of nicotine dependence
CPT/HCPCS: 12345; 36415; 36416; 71045; 80053; 81003; 82962; 83605; 83690; 83735; 83880; 84145; 84484; 85025; 85378; 85610; 87635; 93005; 96361; 96374; 96375; 99283; 99284; J2270; J2405; J7030

== ENCOUNTER 2020-11-25 16:48 | Emergency (ER) | payer MEDICARE, MEDICAID, SELFPAY ==
[2020-11-25 16:48] VITALS: BP 137/99; PULSE 71; RESP 18; TEMP 36.5; O2SAT 95; BMI 41.5
[2020-11-25 17:35] VITALS: BP 141/95; BP 142/78; BP 148/88; PULSE 63; PULSE 70; PULSE 86
--- NOTE | 2020-11-25 17:35 | XRR_ITS ---
PROCEDURE INFORMATION: Exam: XR Chest, 1 View Exam date and time: 11/25/2020 5:40 PM Age: 65 years old Clinical indication: Other: Syncope TECHNIQUE: Imaging protocol: XR of the chest Views: 1 view. Total images: 1 COMPARISON: 1. CR XR chest 1V portable [id number] 08/12/2020 1:54 PM 2. [place] - XR chest 1V portable [id number] 03/02/2020 8:14:56 PM FINDINGS: Lungs: Mild senile fibrosis. No visible active interstitial or alveolar airspace disease. Pleural space: Unremarkable. No pleural effusion. No pneumothorax. Heart/Mediastinum: Unremarkable. No cardiomegaly. Bones/joints: Unremarkable. Other findings: Heavy body habitus. XR/XR chest 1V portable [id number] IMPRESSION: Nonacute.
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
--- NOTE | 2020-11-25 17:37 | ECG_ITS ---
[facility] Test Date: 2020-11-25 Pat Name: Melvin Leiva Department: Room: Gender: Male Tankman: : 1955 Requested By: Adamaris Lobato I Order Number: [id number] Renzo MD: Felix Mays M.D. Measurements Intervals [place] Rate: 62 P: 28 CT: 133 QRS: -9 QRSD: 113 T: 24 QT: 374 QTc: 381 Interpretive Statements SINUS RHYTHM INCOMPLETE RIGHT BUNDLE BRANCH BLOCK [90+ ms QRS DURATION, TERMINAL R IN V1/V2, 40+ ms S IN I/aVL/V4/V5/V6] VOLTAGE CRITERIA FOR LVH [MEETS CRITERIA IN ONE OF: R(aVL), S(V1), R(V5), R(V5/V6)+S(V1)] Compared to ECG 08/12/2020 15:06:10 No significant changes Electronically Signed On 11-25-2020 19:13:21 PANTS CUTTER by Felix Mays M.D. [id number]
[2020-11-25 17:50] VITALS: BP 148/88; PULSE 86; RESP 18; O2SAT 94
[2020-11-25 18:00] VITALS: RESP 18
[2020-11-25 18:03] LABS: Basophils # 0.1 10^3/uL (0.0-0.1); Basophils % 0.9 %; Eosinophils # 0.4 10^3/uL (0.0-0.8); Eosinophils % 4.7 %; Hematocrit 40.7 % (42.0-52.0); Hemoglobin 13.8 g/dL (11.7-16.6); Lymphocytes # 2.1 10^3/uL (0.8-4.8); Mean Corpuscular HGB Conc 33.9 g/dL (30.0-36.0); Mean Corpuscular Hemoglobin 32.4 pg (28.0-34.0); Mean Corpuscular Volume 95.5 fL (80-94); Mean Platelet Volume 9.8 fL (7.4-10.4); Monocytes % 13.8 %; Neutrophils # 3.85 10^3/uL (1.8-7.7); Neutrophils % 52.2 %; Nucleated Red Blood Cells % 0 %; Platelet Count 245 10^3/cmm (130-400); Red Blood Count 4.26 10^6/uL (4.1-5.3); Red Cell Distribution Width 11.9 % (12.1-15.1); White Blood Count 7.4 10^3/uL (4.0-10.0)
[2020-11-25 18:21] LABS: Alanine Aminotransferase 24 U/L (0-41); Albumin Level 3.9 g/dL (3.5-5.2); Alkaline Phosphatase 81 IU/L (40-130); Anion Gap 13.6 (5-19); Aspartate Amino Transferase 15 U/L (0-40); Blood Urea Nitrogen 15 mg/dL (8-23); Calcium 9.2 mg/dL (8.5-10.5); Carbon Dioxide 27 mmol/L (22-29); Chloride 102 mmol/L (98-107); Globulin 2.5 g/dL (1.3-4.6); Glomerular Filtration Rate 84.7 mL/min (90-130); Glucose 141 mg/dL (65-115); Osmolality Calculated 289 mOsm/kg (285-295); Potassium 4.6 mmol/L (3.5-5.1); Sodium 138 mmol/L (136-145); Total Bilirubin 0.2 mg/dL (0.15-1.2); Total Protein 6.4 g/dL (6.6-8.7)
[2020-11-25 18:27] LABS: Troponin(5th) Baseline 9 ng/L (0-15)
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
[2020-11-25 18:56] VITALS: RESP 18
== END 2020-11-25 18:56 | disposition home or self-care (01) ==
PROVIDERS: Emergency Provider Family Medicine; PCP Physician Assistant
DX: R55 Syncope and collapse (principal); Z79.82 Long term (current) use of aspirin; J44.9 Chronic obstructive pulmonary disease, unspecified; Z86.73 Personal history of transient ischemic attack (TIA), and cerebral infarction without residual deficits; Z87.891 Personal history of nicotine dependence
CPT/HCPCS: 12345; 70450; 71045; 80053; 84484; 85025; 86140; 93005; 99283

== ENCOUNTER 2020-12-07 17:26 | Emergency (ER) | payer MEDICARE, MEDICAID, SELFPAY ==
[2020-12-07 17:28] VITALS: BP 95/61; PULSE 80; RESP 18; TEMP 36.7; O2SAT 91; BMI 41.5
--- NOTE | 2020-12-07 17:33 | ECG_ITS ---
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 Measurements Intervals [place] Rate: 71 P: 27 LA: 147 QRS: -7 QRSD: 108 T: 6 QT: 375 QTc: 409 Interpretive Statements SINUS RHYTHM INCOMPLETE RIGHT BUNDLE BRANCH BLOCK [90+ ms QRS DURATION, TERMINAL R IN V1/V2, 40+ ms S IN I/aVL/V4/V5/V6] VOLTAGE CRITERIA FOR LVH [MEETS CRITERIA IN ONE OF: R(aVL), S(V1), R(V5), R(V5/V6)+S(V1)] Compared to ECG 11/25/2020 18:06:49 No significant changes Electronically Signed On 12-07-2020 20:14:31 DIRECTOR OF CARDIAC CATH LAB by Felix Mays M.D. [email or web address]
--- NOTE | 2020-12-07 17:33 | XR_ITS ---
WS: [id number] Portable AP upright chest, 12/07/2020 Clinical Data: chest pain Comparison: Portable chest, 11/25/2020. Findings: No nodules, masses or effusions are seen. The heart is normal. The pulmonary vascularity is not increased. No pneumonia or pneumothorax is seen. There are peripheral opacities which remain unc hanged and these may represent diffuse interstitial disease. Monitor leads are on the chest wall. XR/XR chest 1V portable [id number] Impression: Diffuse peripheral opacities which may represent interstitial fibrosis.
--- NOTE | 2020-12-07 17:38 | ED_ITS ---
Documented by User: Anil Avitia MD 12/14/20 11:15 HPI - Chest Pain General: Chief Complaint: Chest Pain Stated Complaint: CHEST PRESSURE Time Seen by Provider: 12/07/20 17:29 History of Present Illness: HPI narrative: The patient is a 65-year-old male with past medical history of coronary artery disease, COPD, diabetes, and hypertension. He comes to the ER from [facility] where he was riding around in a scooter and says he started to have midsternal to left-sided chest pain and called EMS. In route they gave him a nitroglycerin which relieved his chest pain and put him on Nitropaste. Also gave him 324 of aspirin. He says his pain is resolved in the ER. MD complaint: chest pain Pertinent past history: coronary artery disease Pain location: substernal and left chest Pain radiation: none Severity: moderate Relieving factors: nitroglycerin Associated symptoms: Deny abdominal pain, dyspnea or palpitations Review of Systems General: Reports: 10 or more systems reviewed and unremarkable except in HPI and below Const: Denies: fatigue Eyes: Denies: change in vision, blurry vision or eye redness ENMT: Denies: throat pain, swelling of lips/tongue, ear or mastoid pain or nasal congestion Card: Reports: chest pain; Denies: palpitations, irregular heart rhythm, edema, dyspnea on exertion or orthopnea Resp: Denies: dyspnea, productive cough or non-productive cough GI: Denies: abdominal pain, diarrhea or GI cramping : Denies: flank pain, urinary frequency or urinary urgency Musc: Denies: neck pain, back pain, extremity pain, joint pain, joint redness, limited range of motion or muscle weakness Skin/Breast: Denies: rash, pruritus, erythema, skin pain or skin tenderness Neuro: Denies: headache(s), numbness in extremities, weakness in extremities, sensory changes, difficulty walking, dizziness, confusion or Slurred speech present Psych: Denies: anxiety or depression Endo: Denies: polyuria All/Imm: Denies: urticaria, throat swelling or tongue swelling PFS ED PFSH: Medical History (Updated 12/07/20 @ 20:33 by Angela Ho MD) COPD (chronic obstructive pulmonary disease) GERD (gastroesophageal reflux disease) Seizure TIA (transient ischemic attack) Surgical History H/O knee surgery LEFT History of tonsillectomy and adenoidectomy Family History Father Alzheimer disease Mother COPD (chronic obstructive pulmonary disease) CAD (coronary artery disease) Diabetes Stroke Cancer Hypertension Brother COPD (chronic obstructive pulmonary disease) Sister Stroke Other Glaucoma Social History Smoking and tobacco status: former smoker Physical Exam Const: COMMON NORMALS: no acute distress, average body habitus, patient oriented x3, no limitations, healthy appearing, alert and well nourished GENERAL APPEARANCE: cooperative, comfortable, well kempt and well developed ORIENTATION/CONSCIOUSNESS: Yes awake, Yes oriented to person, Yes oriented to place and Yes oriented to time HENMT: COMMON NORMALS: normocephalic, external ears normal and Normal external nose present HEAD & SCALP: normal to inspection and normocephalic NOSE: N ormal external nose present EXTERNAL EAR: Yes external ears normal MOUTH: Normal oral and palatal mucosa present THROAT: posterior oropharynx normal Eye: COMMON NORMALS: Equal, round and reactive pupils present and EOMs intact bilaterally GENERAL EYE: appearance normal, both eyes and all related structures PUPIL: Yes Equal, round and reactive pupils present Neck/C-Spine: COMMON NORMALS: full ROM, no lymphadenopathy, no meningeal signs and no JVD GENERAL: Yes normal visual inspection Lymph: LYMPHATIC: no lymphadenopathy noted Chest: COMMONS NORMALS: normal inspection of the chest and normal palpation of entire chest wall Resp: COMMON NORMALS: normal respiratory effort, No retractions, No use of accessory muscles, clear to auscultation bilaterally and percussion normal EFFORT & INSPECTION: Yes able to speak in complete sentences AUSCULTATION: clear to auscultation bilaterally PERCUSSION: percussion normal Cardio: COMMON NORMALS: no JVD, regular rate, regular rhythm, S1 normal heart sound present, S2 normal heart sound present and Peripheral pulses 2+ throughout RATE: regular rate RHYTHM: regular rhythm HEART SOUNDS: S1 normal heart sound present and S2 normal heart sound present PERIPHERAL PULSES: Peripheral pulses 2+ throughout GI: COMMON NORMALS: Normal to inspection, nondistended, normoactive bowel sounds present, Soft to palpation, non-tender and no masses INSPECTION: Yes normal to inspection PALPATION: Yes Soft to palpation : COMMON NORMALS: Yes no CVA tenderness BLADDER/KIDNEY EXAM: Yes no CVA tenderness Back/Pelvis: COMMON NORMALS: no CVA tenderness, thoracic and lumbar spine normal to inspection, no thoracic nor lumbar tenderness and thoraco-lumbar ROM n ormal Extremity: COMMON NORMALS: normal to inspection, full ROM, capillary refill normal, no joint enlargement and no pedal edema GENERAL: Yes normal exam except as noted Neuro: COMMON NORMALS: patient oriented x3, CN's II-XII intact bilaterally, moves all extremities, no focal motor deficits, no sensory deficits noted and gait normal SENSORIUM/ORIENTATION: Yes alert, Yes oriented to person, Yes oriented to place and Yes oriented to time MENINGEAL SIGNS: Yes no meningeal signs Psych: COMMON NORMALS: mental status grossly normal, Normal thought process present, cooperative, normal affect and speech normal APPEARANCE: Yes well kempt ATTITUDE: Yes calm SPEECH: Yes normal speech THOUGHT PROCESS: Normal thought process present Skin: COMMON NORMALS: no rashes or lesions noted GENERAL SKIN EXAM: no rashes or lesions noted Course Vital Signs: Vital signs: Vital Signs Temperature 98.1 F 12/07/20 17:28 Pulse Rate 79 12/07/20 20:40 Respiratory Rate 18 12/07/20 20:40 Blood Pressure 122/69 12/07/20 20:40 Pulse Oximetry 98 12/07/20 20:40 MDM - Chest Pain MDM Narrative: Medical decision making narrative: The patient's chest pain has been relieved by nitroglycerin. He is on Nitropaste. Blood pressure 95/61 on arrival and he is pain-free. Awaiting labs and imaging. Signed out this patient to Dr. Ho at 6 PM. Lab Data: Labs: Lab Results 12/07/20 12/07/20 12/07/20 Range/Units 17:10 17:10 17:10 WBC 9.6 (4.0-10.0) 10^3/ uL RBC 4.53 (4.1-5.3) 10^6/u L Hgb 14.3 (11.7-16.6) g/dL Hct 41.7 L (42.0-52.0) % MCV 92.1 (80-94) fL MCH 31.6 (28.0-34.0) pg MCHC 34.3 (30.0-36.0) g/dL RDW 11.6 L (12.1-15.1) % Plt Count 297 (130-400) 10^3/c mm MPV 9.8 (7.4-10.4) fL Neut % (Auto) 63.7 % Lymph % (Auto) 21.0 % [place] % (Auto) 11.8 % Eos % (Auto) 2.3 % Baso % (Auto) 0.7 % Neut # (Auto) 6.07 (1.8-7.7) 10^3/u L Lymph # (Auto) 2.0 (0.8-4.8) 10^3/u L [place] # (Auto) 1.1 H (0.2-0.9) 10^3/u L Eos # (Auto) 0.2 (0.0-0.8) 10^3/u L Baso # (Auto) 0.1 (0.0-0.1) 10^3/u L Nucleated RBC % (a uto) 0 % Nucleated RBCs # 0.0 /100WBC D-Dimer 0.52 (0-0.59) ug/mIFE U Sodium 135 L (136-145) mmol/L Potassium 4.6 (3.5-5.1) mmol/L Chloride 102 (98-107) mmol/L Carbon Dioxide 24 (22-29) mmol/L Anion Gap 13.6 (5-19) BUN 13 (8-23) mg/dL Creatinine 1.0 (0.7-1.2) mg/dL GFR Calculation 75.0 L (90-130) mL/min Glucose 109 (65-115) mg/dL Calculated Osmolal ity 281 L (285-295) mOsm/k g Calcium 9.1 (8.5-10.5) mg/dL Total Bilirubin 0.2 (0.15-1.2) mg/dL AST 25 (0-40) U/L ALT 30 (0-41) U/L Alkaline Phosphata se 84 (40-130) IU/L Troponin T Baselin e (0-15) ng/L Troponin T 120 Min [place] (0-15) ng/L Delta Troponin T (0-10) ABS# NT-Pro-B Natriuret Pep 49 (0-125) pg/mL Total Protein 6.9 (6.6-8.7) g/dL Albumin 4.0 (3.5-5.2) g/dL Globulin 2.9 (1.3-4.6) g/dL Urine Color (Yellow) Urine Appearance (CLEAR) Urine pH (5-7) Ur Specific Gravit y (1.005-1.030) Urine Protein (Negative) Urine Glucose (UA) (Normal) Urine Ketones (Negative) Urine Blood (Negative) Urine Nitrate (Negative) Urine Bilirubin (Negative) Urine Urobilinogen (Negative) mg/dL Ur Leukocyte Yamilex ase (Negative) Urine RBC (0-2) /hpf Urine WBC (0-5) /hpf Ur Squamous Epith Cells (0-5) /hpf Amorphous Sediment Urine Bacteria (NONE) /hpf 12/07/20 12/07/20 12/07/20 Range/Units 17:10 18:15 19:35 WBC (4.0-10.0) 10^3/ uL RBC (4.1-5.3) 10^6/u L Hgb (11.7-16.6) g/dL Hct (42.0-52.0) % MCV (80-94) fL MCH (28.0-34.0) pg MCHC (30.0-36.0) g/dL RDW (12.1-15.1) % Plt Count (130-400) 10^3/c mm MPV (7.4-10.4) fL Neut % (Auto) % Lymph % (Auto) % [place]asta % (Auto) % Eos % (Auto) % Baso % (Auto) % Neut # (Auto) (1.8-7.7) 10^3/u L Lymph # (Auto) (0.8-4.8) 10^3/u L [place] # (Auto) (0.2-0.9) 10^3/u L Eos # (Auto) (0.0-0.8) 10^3/u L Baso # (Auto) (0.0-0.1) 10^3/u L Nucleated RBC % (a uto) % Nucleated RBCs # /100WBC D-Dimer (0-0.59) ug/mIFE U Sodium (136-145) mmol/L Potassium (3.5-5.1) mmol/L Chloride (98-107) mmol/L Carbon Dioxide (22-29) mmol/L Anion Gap (5-19) BUN (8-23) mg/dL Creatinine (0.7-1.2) mg/dL GFR Calculation (90-130) mL/min Glucose (65-115) mg/dL Calculated Osmolal ity (285-295) mOsm/k g Calcium (8.5-10.5) mg/dL Total Bilirubin (0.15-1.2) mg/dL AST (0-40) U/L ALT (0-41) U/L Alkaline Phosphata se (40-130) IU/L Troponin T Baselin e 10 (0-15) ng/L Troponin T 120 Min [place] 9.60 (0-15) ng/L Delta Troponin T -0.40 L (0-10) ABS# NT-Pro-B Natriuret Pep (0-125) pg/mL Total Protein (6.6-8.7) g/dL Albumin (3.5-5.2) g/dL Globulin (1.3-4.6) g/dL Urine Color Yellow (Yellow) Urine Appearance Cloudy (CLEAR) Urine pH 5 (5-7) Ur Specific Gravit y 1.020 (1.005-1.030) Urine Protein 1+ H (Negative) Urine Glucose (UA) Norm (Normal) Urine Ketones Negative (Negative) Urine Blood 2+ H (Negative) Urine Nitrate Negative (Negative) Urine Bilirubin Neg (Negative) Urine Urobilinogen Norm (Negative) mg/dL Ur Leukocyte Yamilex ase 2+ H (Negative) Urine RBC 25-40 H (0-2) /hpf Urine WBC Too numerous to c nt H (0-5) /hpf Ur Squamous Epith Cells 0-4 H (0-5) /hpf Amorphous Sediment Not Reportable Urine Bacteria 4+ H (NONE) /hpf Discharge Plan Discharge Patient Disposition: Home Clinical Impression: Chest pain Qualifiers: Chest pain type: unspecified Qualified Code(s): R07.9 - Chest pain, unspecified Condition: Stable Prescriptions: No Action potassium chloride [Klor-Con 10] 10 mEq tablet extended release 10 meq PO DAILY@0900 RF: 0 albuterol sulfate [ProAir HFA] 90 mcg/actuation HFA aerosol inhaler 1 puff INHALATION Q4H PRN (Reason: Shortness Of Breath) RF: 0 mecobalamin (vitamin B12) 5,000 mcg tablet,disintegrating 5,000 mcg PO DAILY@0900 RF: 0 omega-3 fatty acids 1,000 mg capsule 1,000 mg PO DAILY@0900 RF: 0 aspirin 81 mg tablet,delayed release (DR/EC) 81 mg PO DAILY@20 RF: 0 diphenhydramine HCl [Allergy Relief(diphenhydramin)] 25 mg capsule 50 mg PO DAILY@0900 RF: 0 atorvastatin 20 mg Tablet 20 mg PO DAILY@0900 RF: 0 lisinopril 10 mg tablet 10 mg PO DAILY@0900 RF: 0 budesonide-formoterol [Symbicort] 160-4.5 mcg/actuation HFA aerosol inhaler 2 puff INHALATION BID@0900,2100 RF: 0 levetiracetam 500 mg tablet extended release 24 hr 500 mg PO BID@0900,2100 RF: 0 omeprazole 40 mg capsule,delayed release(DR/EC) 40 mg PO DAILY@0900 RF: 0 citalopram 10 mg tablet 10 mg PO DAILY@0900 RF: 0 sumatriptan succinate 100 mg tablet 100 mg PO PRN MDD 2 TABS RF: 0 famotidine 20 mg tablet 20 mg PO BID@0900,2100 RF: 0 Atrovent HFA 17 mcg/actuation HFA aerosol inhaler See Rx Instructions .ROUTE .COMPLEX RF: 0 calcium 1 tab PO DAILY@0900 RF: 0 Pain Relief (acetaminophen) 650 mg Tablet Extended Release 1,300 mg PO PRN RF: 0 nitroglycerin 0.4 mg tablet, sublingual 0.4 mg sublingual Q5M PRN (Reason: Chest Pain) RF: 0 divalproex 250 mg tablet extended release 24 hr 250 mg PO TID RF: 0 Chantix Continuing Month Box 1 mg tablet See Rx Instructions .ROUTE .COMPLEX RF: 0 L-Lysine 1 tab PO DAILY@09 RF: 0 [place]'s wort 2 tab PO BID RF: 0 Discharge Orders: Discharge ED (Routine); Ordered 12/07/20 Ordered By: Angela Ho Referrals: Nevarez,Phoebe L, PA [Primary Care Provider] - Discharge Diet: Advance as tolerated Discharge Activity: Resume usual activity Patient Instructions: Chest Pain (ED) Coding Level of Care Code ED Rn Telemetry for Chg Fwd Exam Comprehensive Documented by User: Angela Ho MD 12/07/20 20:47 HPI - Chest Pain General: Chief Complaint: Chest Pain Stated Complaint: CHEST PRESSURE Time Seen by Provider: 12/07/20 17:29 PFSH ED PFSH: Medical History (Updated 12/07/20 @ 20:33 by Angela Ho MD) COPD (chronic obstructive pulmonary disease) GERD (gastroesophageal reflux disease) Seizure TIA (transient ischemic attack) Surgical History H/O knee surgery LEFT History of tonsillectomy and adenoidectomy Family History Father Alzheimer disease Mother COPD (chronic obstructive pulmonary disease) CAD (coronary artery disease) Diabetes Stroke Cancer Hypertension Brother COPD (chronic obstructive pulmonary disease) Sister Stroke Other Glaucoma Social History Smoking and tobacco status: former smoker Course Vital Signs: Vital signs: Vital Signs Temperature 98.1 F 12/07/20 17:28 Pulse Rate 79 12/07/20 20:40 Respiratory Rate 18 12/07/20 20:40 Blood Pressure 122/69 12/07/20 20:40 Pulse Oximetry 98 12/07/20 20:40 MDM - Chest Pain MDM Narrative: Medical decision making narrative: Melvin presents here with chest pain is atypical in nature. He has been pain-free here is initial and repeat troponins are negative along with a negative D-dimer. He has no signs of aortic dissection or pulmonary embolism. He feels improved and stable for discharge. He is already set up with an outpatient stress test by his PCP. He is to follow then. He is return if worsening. Lab Data: Labs: Lab Results 12/07/20 12/07/20 12/07/20 Range/Units 17:10 17:10 17:10 WBC 9.6 (4.0-10.0) 10^3/ uL RBC 4.53 (4.1-5.3) 10^6/u L Hgb 14.3 (11.7-16.6) g/dL Hct 41.7 L (42.0-52.0) % MCV 92.1 (80-94) fL MCH 31.6 (28.0-34.0) pg MCHC 34.3 (30.0-36.0) g/dL RDW 11.6 L (12.1-15.1) % Plt Count 297 (130-400) 10^3/c mm MPV 9.8 (7.4-10.4) fL Neut % (Auto) 63.7 % Lymph % (Auto) 21.0 % [place] % (Auto) 11.8 % Eos % (Auto) 2.3 % Baso % (Auto) 0.7 % Neut # (Auto) 6.07 (1.8-7.7) 10^3/u L Lymph # (Auto) 2.0 (0.8-4.8) 10^3/u L [place] # (Auto) 1.1 H (0.2-0.9) 10^3/u L Eos # (Auto) 0.2 (0.0-0.8) 10^3/u L Baso # (Auto) 0.1 (0.0-0.1) 10^3/u L Nucleated RBC % (a uto) 0 % Nucleated RBCs # 0.0 /100WBC D-Dimer 0.52 (0-0.59) ug/mIFE U Sodium 135 L (136-145) mmol/L Potassium 4.6 (3.5-5.1) mmol/L Chloride 102 (98-107) mmol/L Carbon Dioxide 24 (22-29) mmol/L Anion Gap 13.6 (5-19) BUN 13 (8-23) mg/dL Creatinine 1.0 (0.7-1.2) mg/dL GFR Calculation 75.0 L (90-130) mL/min Glucose 109 (65-115) mg/dL Calculated Osmolal ity 281 L (285-295) mOsm/k g Calcium 9.1 (8.5-10.5) mg/dL Total Bilirubin 0.2 (0.15-1.2) mg/dL AST 25 (0-40) U/L ALT 30 (0-41) U/L Alkaline Phosphata se 84 (40-130) IU/L Troponin T Baselin e (0-15) ng/L Troponin T 120 Min [place] (0-15) ng/L Delta Troponin T (0-10) ABS# NT-Pro-B Natriuret Pep 49 (0-125) pg/mL Total Protein 6.9 (6.6-8.7) g/dL Albumin 4.0 (3.5-5.2) g/dL Globulin 2.9 (1.3-4.6) g/dL Urine Color (Yellow) Urine Appearance (CLEAR) Urine pH (5-7) Ur Specific Gravit y (1.005-1.030) Urine Protein (Negative) Urine Glucose (UA) (Normal) Urine Ketones (Negative) Urine Blood (Negative) Urine Nitrate (Negative) Urine Bilirubin (Negative) Urine Urobilinogen (Negative) mg/dL Ur Leukocyte Yamilex ase (Negative) Urine RBC (0-2) /hpf Urine WBC (0-5) /hpf Ur Squamous Epith Cells (0-5) /hpf Amorphous Sediment Urine Bacteria (NONE) /hpf 12/07/20 12/07/20 12/07/20 Range/Units 17:10 18:15 19:35 WBC (4.0-10.0) 10^3/ uL RBC (4.1-5.3) 10^6/u L Hgb (11.7-16.6) g/dL Hct (42.0-52.0) % MCV (80-94) fL MCH (28.0-34.0) pg MCHC (30.0-36.0) g/dL RDW (12.1-15.1) % Plt Count (130-400) 10^3/c mm MPV (7.4-10.4) fL Neut % (Auto) % Lymph % (Auto) % [place] % (Auto) % Eos % (Auto) % Baso % (Auto) % Neut # (Auto) (1.8-7.7) 10^3/u L Lymph # (Auto) (0.8-4.8) 10^3/u L [place] # (Auto) (0.2-0.9) 10^3/u L Eos # (Auto) (0.0-0.8) 10^3/u L Baso # (Auto) (0.0-0.1) 10^3/u L Nucleated RBC % (a uto) % Nucleated RBCs # /100WBC D-Dimer (0-0.59) ug/mIFE U Sodium (136-145) mmol/L Potassium (3.5-5.1) mmol/L Chloride (98-107) mmol/L Carbon Dioxide (22-29) mmol/L Anion Gap (5-19) BUN (8-23) mg/dL Creatinine (0.7-1.2) mg/dL GFR Calculation (90-130) mL/min Glucose (65-115) mg/dL Calculated Osmolal ity (285-295) mOsm/k g Calcium (8.5-10.5) mg/dL Total Bilirubin (0.15-1.2) mg/dL AST (0-40) U/L ALT (0-41) U/L Alkaline Phosphata se (40-130) IU/L Troponin T Baselin e 10 (0-15) ng/L Troponin T 120 Min [place] 9.60 (0-15) ng/L Delta Troponin T -0.40 L (0-10) ABS# NT-Pro-B Natriuret Pep (0-125) pg/mL Total Protein (6.6-8.7) g/dL Albumin (3.5-5.2) g/dL Globulin (1.3-4.6) g/dL Urine Color Yellow (Yellow) Urine Appearance Cloudy (CLEAR) Urine pH 5 (5-7) Ur Specific Gravit y 1.020 (1.005-1.030) Urine Protein 1+ H (Negative) Urine Glucose (UA) Norm (Normal) Urine Ketones Negative (Negative) Urine Blood 2+ H (Negative) Urine Nitrate Negative (Negative) Urine Bilirubin Neg (Negative) Urine Urobilinogen Norm (Negative) mg/dL Ur Leukocyte Yamilex ase 2+ H (Negative) Urine RBC 25-40 H (0-2) /hpf Urine WBC Too numerous to c nt H (0-5) /hpf Ur Squamous Epith Cells 0-4 H (0-5) /hpf Amorphous Sediment Not Reportable Urine Bacteria 4+ H (NONE) /hpf EKG Data^: EKG 1: Attestation: I personally reviewed and interpreted this EKG as follows: EKG interpretation date: 12/07/20 EKG interpretation time: 17:45 Interpretation: nsr hr [address] or t wave abnormalities qrs 108 qtc 398 EKG 2: Attestation: I personally reviewed and interpreted this EKG as follows: EKG interpretation date: 12/07/20 EKG interpretation time: 20:17 Interpretation: Sinus bradycardia heart rate [address] or T wave normalities QRS 114 QTC 399 Discharge Plan Discharge Patient Disposition: Home Clinical Impression: Chest pain Qualifiers: Chest pain type: unspecified Qualified Code(s): R07.9 - Chest pain, unspecified Condition: Stable Prescriptions: No Action potassium chloride [Klor-Con 10] 10 mEq tablet extended release 10 meq PO DAILY@0900 RF: 0 albuterol sulfate [ProAir HFA] 90 mcg/actuation HFA aerosol inhaler 1 puff INHALATION Q4H PRN (Reason: Shortness Of Breath) RF: 0 mecobalamin (vitamin B12) 5,000 mcg tablet,disintegrating 5,000 mcg PO DAILY@0900 RF: 0 omega-3 fatty acids 1,000 mg capsule 1,000 mg PO DAILY@0900 RF: 0 aspirin 81 mg tablet,delayed release (DR/EC) 81 mg PO DAILY@20 RF: 0 diphenhydramine HCl [Allergy Relief(diphenhydramin)] 25 mg capsule 50 mg PO DAILY@0900 RF: 0 atorvastatin 20 mg Tablet 20 mg PO DAILY@0900 RF: 0 lisinopril 10 mg tablet 10 mg PO DAILY@0900 RF: 0 budesonide-formoterol [Symbicort] 160-4.5 mcg/actuation HFA aerosol inhaler 2 puff INHALATION BID@0900,2100 RF: 0 levetiracetam 500 mg tablet extended release 24 hr 500 mg PO BID@0900,2100 RF: 0 omeprazole 40 mg capsule,delayed release(DR/EC) 40 mg PO DAILY@0900 RF: 0 citalopram 10 mg tablet 10 mg PO DAILY@0900 RF: 0 sumatriptan succinate 100 mg tablet 100 mg PO PRN MDD 2 TABS RF: 0 famotidine 20 mg tablet 20 mg PO BID@0900,2100 RF: 0 Atrovent HFA 17 mcg/actuation HFA aerosol inhaler See Rx Instructions .ROUTE .COMPLEX RF: 0 calcium 1 tab PO DAILY@0900 RF: 0 Pain Relief (acetaminophen) 650 mg Tablet Extended Release 1,300 mg PO PRN RF: 0 nitroglycerin 0.4 mg tablet, sublingual 0.4 mg sublingual Q5M PRN (Reason: Chest Pain) RF: 0 divalproex 250 mg tablet extended release 24 hr 250 mg PO TID RF: 0 Chantix Continuing Month Box 1 mg tablet See Rx Instructions .ROUTE .COMPLEX RF: 0 L-Lysine 1 tab PO DAILY@09 RF: 0 [place]'s wort 2 tab PO BID RF: 0 Discharge Orders: Discharge ED (Routine); Ordered 12/07/20 Ordered By: Angela Ho Referrals: Phoebe Nevarez PA [Primary Care Provider] - Discharge Diet: Advance as tolerated Discharge Activity: Resume usual activity Patient Instructions: Chest Pain (ED) Coding Level of Care Code ED Rn Telemetry for Chg Fwd Exam Comprehensive
[2020-12-07 17:51] VITALS: BP 95/61; PULSE 89; RESP 21; O2SAT 98
[2020-12-07 18:08] LABS: Basophils # 0.1 10^3/uL (0.0-0.1); Basophils % 0.7 %; Eosinophils # 0.2 10^3/uL (0.0-0.8); Eosinophils % 2.3 %; Hematocrit 41.7 % (42.0-52.0); Hemoglobin 14.3 g/dL (11.7-16.6); Mean Corpuscular HGB Conc 34.3 g/dL (30.0-36.0); Mean Corpuscular Hemoglobin 31.6 pg (28.0-34.0); Mean Corpuscular Volume 92.1 fL (80-94); Mean Platelet Volume 9.8 fL (7.4-10.4); Monocytes # 1.1 10^3/uL (0.2-0.9); Monocytes % 11.8 %; Neutrophils # 6.07 10^3/uL (1.8-7.7); Neutrophils % 63.7 %; Nucleated Red Blood Cells % 0 %; Platelet Count 297 10^3/cmm (130-400); Red Blood Count 4.53 10^6/uL (4.1-5.3); Red Cell Distribution Width 11.6 % (12.1-15.1); White Blood Count 9.6 10^3/uL (4.0-10.0)
[2020-12-07 18:27] LABS: D Dimer 0.52 ug/mIFEU (0-0.59)
[2020-12-07 18:30] VITALS: BP 109/57; PULSE 66; RESP 16; O2SAT 91
[2020-12-07 18:39] LABS: Troponin(5th) Baseline 10 ng/L (0-15)
[2020-12-07 18:47] LABS: Alanine Aminotransferase 30 U/L (0-41); Alkaline Phosphatase 84 IU/L (40-130); Anion Gap 13.6 (5-19); Aspartate Amino Transferase 25 U/L (0-40); Blood Urea Nitrogen 13 mg/dL (8-23); Calcium 9.1 mg/dL (8.5-10.5); Carbon Dioxide 24 mmol/L (22-29); Chloride 102 mmol/L (98-107); Globulin 2.9 g/dL (1.3-4.6); Glucose 109 mg/dL (65-115); NT Pro B Type Natriuretic Pept 49 pg/mL (0-125); Osmolality Calculated 281 mOsm/kg (285-295); Potassium 4.6 mmol/L (3.5-5.1); Sodium 135 mmol/L (136-145); Total Bilirubin 0.2 mg/dL (0.15-1.2); Total Protein 6.9 g/dL (6.6-8.7)
[2020-12-07 19:25] VITALS: BP 113/67; PULSE 72; RESP 16; O2SAT 94
--- NOTE | 2020-12-07 19:33 | ECG_ITS ---
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 Measurements Intervals M[place]ool Rate: 57 P: 16 FL: 133 QRS: -8 QRSD: 114 T: 8 QT: 404 QTc: 395 Interpretive Statements SINUS BRADYCARDIA MODERATE INTRAVENTRICULAR CONDUCTION DELAY [110+ ms QRS DURATION] VOLTAGE CRITERIA FOR LVH [MEETS CRITERIA IN ONE OF: R(aVL), S(V1), R(V5), R(V5/V6)+S(V1)] Nonspecific ST-T changes in the inferior leads Compared to ECG 12/07/2020 17:45:57 Intraventricular conduction delay now present Sinus rhythm no longer present Incomplete right bundle-branch block no longer present Electronically Signed On 12-07-2020 20:20:44 QUILL CLEANING MACHINE OPERATOR by Felix Mays M.D. [id number]
[2020-12-07 19:35] LABS: Blood Urine 2+ (Negative); Glucose Urine UA Norm (Normal); Ketones Urine Negative (Negative); Protein Urine 1+ (Negative); Urine Appearance Cloudy (CLEAR); Urine Color Yellow (Yellow); pH Urine 5 (5-7)
[2020-12-07 19:36] LABS: Add Urine Microscopic? YES; Bilirubin Urine Neg (Negative); Leukocyte Esterase Urine 2+ (Negative); Nitrate Urine Negative (Negative); Urobilinogen Urine Norm (Negative)
[2020-12-07 19:40] LABS: Add Urine Culture? Yes; Bacteria Urine 4+ /hpf; RBC Urine 25-40 /hpf (0-2); Squamous Epithelial Cell Urine 0-4 /hpf (0-5); WBC Urine TOO NUMEROUS TO CNT /hpf (0-5)
[2020-12-07 20:40] VITALS: BP 122/69; PULSE 79; RESP 18; O2SAT 98
== END 2020-12-07 20:45 | disposition home or self-care (01) ==
PROVIDERS: Family Medicine; Emergency Provider Emergency Medicine; PCP Physician Assistant
DX: R07.9 Chest pain, unspecified (principal); Z79.82 Long term (current) use of aspirin; J44.9 Chronic obstructive pulmonary disease, unspecified; Z86.73 Personal history of transient ischemic attack (TIA), and cerebral infarction without residual deficits; Z87.891 Personal history of nicotine dependence; Z79.899 Other long term (current) drug therapy
CPT/HCPCS: 12345; 36415; 71045; 80053; 81001; 83880; 84484; 85025; 85378; 87086; 93005; 99282; 99284

== ENCOUNTER 2021-01-04 09:46 | Outpatient (CLI) | payer MEDICARE, MEDICAID, SELFPAY ==
[2021-01-04 10:01] VITALS: BMI 40.8
--- NOTE | 2021-01-04 10:20 | ECG_ITS ---
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 Interpretive Statements NAME OF STUDY: LEXISCAN SESTAMIBI STRESS TEST INDICATION: [Chest Pressure; Chest Pain, ] Procedure: At the baseline, the blood pressure was 165/91mmHg, with a heart rate of 59 bpm. The electrocardiogram showed normal sinus rhythm, normal with normal ST and T waves. The Lexiscan was infused over a duration of 20 seconds. A total of 0.4 mg of Lexiscan was infused. The stress phase was continued for a total of 5 minutes. Heart rate at the end of stress phase was 74 bpm with a blood pressure 173/91mmHg. The EKG at the peak infusion revealed sinus rhythm with no significant ST-T wave changes. Occasional PVCs seen. Sestamibi was injected 20 seconds after Lexiscan infusion. Blood pressure at the end of the recovery phase was 175/95 mmHg with a heart rate of 80 bpm.Occasional PVCs seen Conclusion: 1. Normal EKG response to Lexiscan infusion. 2. No Lexiscan induced chest pain or cardiac arrhythmia. 3. Normal blood pressure and heart rate response. 4. Sestamibi/sestamibi perfusion scan pending; see separate report. Electronically Signed On 01-15-2021 17:54:10 CDT by Gene Cespedes M.D. [id number]
--- NOTE | 2021-01-04 10:20 | NMCV_ITS ---
NM vicenta perf SPECT r/s* [id number] Melvin Leiva Age: 65 Gender: M : 1955 Exam Date: 01/04/2021 10:20 Ordering Phys: Phoebe Nevarez Technologist: ERNESTINE Brewster Exam Location: [facility] Indications: Chest pain STRESS TEST Please see separate stress test report in [facility] for full findings IMAGE PROTOCOL Rest/Stress 1 Lexiscan Day Radiopharmaceutical Dose (mCi) Administration Site Administered by Rest: Tc-99m 10.6 IV ERNESTINE Brewster Sestamibi Stress:Tc-99m 32.6 IV ERNESTINE Brewster Sestamibi Rest: 04-Jan-2021 60 Discovery 630 Stress: 04-Jan-2021 45 Discovery 630 0.4mg Lexiscan. Images obtained in supine and prone position. SPECT RESULTS Technical Quality: Good Raw Data Analysis: Soft tissue attenuation Image Corrections: Patient motion artifact - motion correction applied stress supine images only. Summed Stress Score: 7 Summed Rest Score: 6 Summed Difference Score: 3 PERFUSION FINDINGS There is moderate sized, mostly reversible myocardial perfusion defect in the lateral wall. There is a moderate sized, mostly fixed perfusion defect in the apical and inferior hopson. FUNCTIONAL RESULTS (calculated via Gated SPECT) Stress Image LV EF (%): 57 Stress EDV (mL):136 TID: 1.22 Stress ESV (mL):58 FUNCTIONAL FINDINGS: LV systolic function is normal with EF of 57%. Elevated TID. IMPRESSIONS 1. Abnormal myocardial perfusion imaging with mostly reversible perfusion defect in the lateral wall. This likely represents ischemia in the LCx territory. 2. There is a fixed perfusion defect of the apical and inferior hopson. 3. Transient ischemic dilation noted with a ratio of 1.22, it can be indicative of multivessel disease 4. LV systolic function is normal Gene Cespedes MD (Electronically Signed) Final Date: 04 January 2021 19:04 S
[2021-01-04 12:16] VITALS: BP 175/95; PULSE 78
[2021-01-04] MEDS: regadenoson 0.4 Mg/5 ml Syringe IVP (12:16)
== END 2021-01-04 09:47 | disposition home or self-care (01) ==
PROVIDERS: PCP Physician Assistant; Visit Provider Physician Assistant
DX: R07.9 Chest pain, unspecified (principal)
CPT/HCPCS: 78452; 93017; A9500; J2785

== ENCOUNTER 2021-01-17 19:04 | Emergency (ER) | payer MEDICARE, MEDICAID, OTHER, SELFPAY ==
[2021-01-17 19:07] VITALS: BP 149/97; PULSE 70; RESP 17; TEMP 36.7; O2SAT 100; BMI 40.4
[2021-01-17 19:14] VITALS: BP 149/97; PULSE 79; RESP 18; O2SAT 99
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
--- NOTE | 2021-01-17 19:30 | ECG_ITS ---
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 Measurements Intervals [place] Rate: 61 P: 24 CA: 136 QRS: -6 QRSD: 113 T: 20 QT: 391 QTc: 397 Interpretive Statements SINUS RHYTHM INCOMPLETE RIGHT BUNDLE BRANCH BLOCK [90+ ms QRS DURATION, TERMINAL R IN V1/V2, 40+ ms S IN I/aVL/V4/V5/V6] MODERATE VOLTAGE CRITERIA FOR LVH, CONSIDER NORMAL VARIANT [MEETS CRITERIA IN ONE OF: R(aVL), S(V1), R(V5), R(V5/V6)+S(V1)] Compared to ECG 12/07/2020 20:17:12 Incomplete right bundle-branch block now present Sinus bradycardia no longer present Intraventricular conduction delay no longer present ST (T wave) deviation no longer present Electronically Signed On 01-18-2021 7:28:41 CDT by Debo Bowles M.D. [id number]
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
[2021-01-17] MEDS: acetaminophen 325 mg Tablet 650 MG PO (20:05)
[2021-01-17 20:09] VITALS: BP 155/86; PULSE 68; RESP 24; O2SAT 100
[2021-01-17 20:19] LABS: Basophils # 0.1 10^3/uL (0.0-0.1); Basophils % 0.8 %; Eosinophils # 0.2 10^3/uL (0.0-0.8); Eosinophils % 2.5 %; Hematocrit 42.1 % (42.0-52.0); Hemoglobin 14.4 g/dL (11.7-16.6); Lymphocytes % 21.3 %; Mean Corpuscular HGB Conc 34.2 g/dL (30.0-36.0); Mean Corpuscular Hemoglobin 31.9 pg (28.0-34.0); Mean Corpuscular Volume 93.1 fL (80-94); Mean Platelet Volume 9.8 fL (7.4-10.4); Monocytes # 1.2 10^3/uL (0.2-0.9); Monocytes % 12.4 %; Neutrophils # 5.98 10^3/uL (1.8-7.7); Neutrophils % 62.7 %; Nucleated Red Blood Cells % 0 %; Platelet Count 245 10^3/cmm (130-400); Red Blood Count 4.52 10^6/uL (4.1-5.3); Red Cell Distribution Width 11.9 % (12.1-15.1); White Blood Count 9.5 10^3/uL (4.0-10.0)
[2021-01-17 20:41] LABS: Alanine Aminotransferase 22 U/L (0-41); Albumin Level 4.4 g/dL (3.5-5.2); Alkaline Phosphatase 77 IU/L (40-130); Anion Gap 13.8 (5-19); Aspartate Amino Transferase 20 U/L (0-40); Blood Urea Nitrogen 16 mg/dL (8-23); Calcium 9.3 mg/dL (8.5-10.5); Carbon Dioxide 28 mmol/L (22-29); Chloride 101 mmol/L (98-107); Globulin 2.9 g/dL (1.3-4.6); Glomerular Filtration Rate 50.9 mL/min (90-130); Glucose 139 mg/dL (65-115); Osmolality Calculated 289 mOsm/kg (285-295); Potassium 4.8 mmol/L (3.5-5.1); Sodium 138 mmol/L (136-145); Total Bilirubin 0.2 mg/dL (0.15-1.2); Total Protein 7.3 g/dL (6.6-8.7)
[2021-01-17] MEDS: iohexol 350 mg/mL 100 mL Btl IV (20:42)
[2021-01-17 20:43] LABS: Troponin(5th) Baseline 11 ng/L (0-15)
--- NOTE | 2021-01-17 21:30 | ECG_ITS ---
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 Measurements Intervals [place] Rate: 57 P: 39 FL: 172 QRS: 7 QRSD: 106 T: 34 QT: 399 QTc: 392 Interpretive Statements SINUS BRADYCARDIA INCOMPLETE RIGHT BUNDLE BRANCH BLOCK [90+ ms QRS DURATION, TERMINAL R IN V1/V2, 40+ ms S IN I/aVL/V4/V5/V6] Compared to ECG 01/17/2021 19:57:50 Sinus rhythm no longer present Electronically Signed On 01-18-2021 7:41:12 CDT by Debo Bowles M.D. [id number]
[2021-01-17 22:10] VITALS: BP 176/91; PULSE 72; RESP 19; O2SAT 98
== END 2021-01-17 22:11 | disposition home or self-care (01) ==
PROVIDERS: Emergency Provider Family Medicine; PCP Physician Assistant
DX: S20.219A Contusion of unspecified front wall of thorax, initial encounter (principal); S40.011A Contusion of right shoulder, initial encounter; Z79.82 Long term (current) use of aspirin; J44.9 Chronic obstructive pulmonary disease, unspecified; Z86.73 Personal history of transient ischemic attack (TIA), and cerebral infarction without residual deficits; Z87.891 Personal history of nicotine dependence; V47.5XXA Car driver injured in collision with fixed or stationary object in traffic accident, initial encounter
CPT/HCPCS: 70450; 71275; 72125; 74174; 80053; 84484; 85025; 93005; 99284; Q9967

== ENCOUNTER → 2021-03-22 10:45 | Outpatient (BNVA) | payer MEDICARE, MEDICAID, SELFPAY | PROVIDERS: PCP Physician Assistant; Visit Provider Internal Medicine Cardiovascular Disease | DX: G45.9 Transient cerebral ischemic attack, unspecified (principal); R56.9 Unspecified convulsions; J44.9 Chronic obstructive pulmonary disease, unspecified; I10 Essential (primary) hypertension | CPT/HCPCS: 80048; 83735; 83880 ==

== ENCOUNTER → 2021-03-29 09:54 | Outpatient (BNVA) | payer MEDICARE, MEDICAID, SELFPAY | PROVIDERS: PCP Physician Assistant; Visit Provider Internal Medicine Cardiovascular Disease | DX: R94.39 Abnormal result of other cardiovascular function study (principal); Z01.818 Encounter for other preprocedural examination; Z20.822 Contact with and (suspected) exposure to COVID-19; E78.5 Hyperlipidemia, unspecified | CPT/HCPCS: 80048; 80061; 85025; 85610; 87635 ==

== ENCOUNTER 2021-04-04 06:33 | Day surgery (SDC) | payer MEDICARE, MEDICAID, SELFPAY ==
[2021-04-04] VITALS (16 sets, daily range): BP systolic 108–142; BP diastolic 68–84; PULSE 55–76; RESP 4–18; TEMP 36.7; O2SAT 92–95; BMI 41.4
--- NOTE | 2021-04-04 06:44 | XACV_ITS ---
Ht: 180 cm Wt: 135 kg BSA: 2.66 m2 Gender: Male : 1955 Any Known Allergies: No known allergies Exam Priority: Routine Procedure(s): Procedure Description: Diagnostic procedure Procedure Description: Left Heart Catheterization Procedure Description: Left ventriculography Procedure Description: Coronary Angiography Diagnostic Cath Status: Elective Diagnostic Findings * No disease noted in the Left Main, Left Anterior Descending, Right, or Circumflex coronary arteries. * Coronary angiography shows right dominance. Conclusions 1. No disease noted in the Left Main, Left Anterior Descending, Right, or Circumflex coronary arteries. 2. Normal left ventricular systolic function. Ejection fraction of 55%. Recommendations * Aggressive risk factor modification. * Outpatient cardiology follow up in 4 weeks. Interventional RX Recommendation: medical therapy and/or counseling Diagnostic RX Recommendation: medical therapy and/or counseling Anticoagulation: Heparin Ventriculography Ejection Fraction: 55.0 % Pressures Phase:Rest AO : 100 / 59 ( 72 ) @ 7:01:00 AM 128 / 73 ( 94 ) @ 7:10:00 AM 122 / 71 ( 90 ) @ 7:10:00 AM LV : 136 / 3 / 27 @ 7:09:00 AM 127 / 9 / 25 @ 7:09:00 AM 131 / 5 / 26 @ 7:10:00 AM Valves Phase:DefaultPhase AV : 2.0 @ 8:15:42 AM 2.0 @ 8:15:42 AM AV Mean Gradient: 16.0 @ 8:15:42 AM 16.0 @ 8:15:42 AM Clinical Evaluation EBL: 5mL-10mL Procedural Details Procedure Consent Obtained. Pre-Procedure Time Out. Identified patient by full name and date of as verbalized by the patient/guarantor. Does the consent match the physician's order: Yes. Accurate & Complete Informed Consent: Yes. Inpatient/Outpatient History & Physical on Chart: Yes. If H&P is completed, is and addenduem needed: No; If yes, is the addendum complete: N/A. Visualize and Verify Site with Patient/Guarantor: N/A. Relevant Radiology Images available: N/A. Pre-op teaching completed and patient verbalized understanding. The risks, benefits, and alternatives of sedation and/or procedure were discussed by physician. The patient agrees to continue. Procedure started. Correct patient, site and procedure confirmed by cath team. Current diagnosis: Chest Pain. [facility] Clinical Fraility Score: 3: Managing Well. 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 Chest Pain Symptom Assessment: Typical Angina Symptoms. Physician arrived. PERRLA. Strong, equal hand evidence technician bilaterally. Lungs clear x 5 lobes. IV Site on Arrival: 20 gauge in the right anticubital. IV Fluids: 0.9% NaCl at KVO. 0 mL infused prior to director of cardiac cath lab. Oxygen started at 2liters/min via nasal canula. right groin was prepped with chloroprep then draped in the usual sterile fashion. right radial was prepped with chloroprep then draped in the usual sterile fashion. Baseline sample Acquired. HR: 63 BPM. Equipment: 6F - Radial. Cardiac Cath Pack. ACIST Manifold Kit Model BT 2000. Heparinized Saline (2 units/mL), 1000 mL bag. Physician scrubbed in. Immediate Pre-Procedure Time Out. Correct Patient: Yes; Correct Procedure: Yes; Correct Site: Yes; Correct Patient Position: Yes; Correct Supplies: Yes; Dried Flammable Prep: Yes; Blood Products Available: N/A;. Lidocaine 1% infiltrated to the right radial. Arterial access obtained. A 5 kyrgyz TIG catheter in over wire. Inventory is TR Glidewire Angled Stiff Shaft .035 260cm. Pt has tortuosity, unable to advance catheter. Standard wire out. Hand injection performed. Glidewire inserted to advance catheter. Glidewire out. Multiple views taken of left coronary artery. Catheter redirected to the RCA. Catheter removed over the exchange wire. A 5 kyr[place]z Angled Pig catheter in over wire. EDP Sample taken: LV 136/3,27; HR: 74 BPM; SpO2: 96%. LV gram performed in ALAN @ 10 mL/second for a total of 30 mL. EDP Sample taken: LV 127/9,25; HR: 70 BPM; SpO2: 96%. Pullback taken: LV 131/5,26; AO 128/73(94); Mean: 16mmHg, Peak to Peak: 2mmHg, SEP: 6sec/min; HR: 68 BPM; SpO2: 96%. Catheter removed over the exchange wire. Physician scrubbed out. A TR Band was successful obtaining hemostatsis at the Right Radial artery insertion site. TR band placed. Hemostasis obtained. Post Procedure: Pulses reassessed and unchanged. PERRLA. Strong, equal hand evidence technician bilaterally. No VTE prophylaxis required. Medication's Wasted: Lidocaine 1% = 18 mL. Medication's Wasted: Nitro = 49.8 mg. Medication's Wasted: Heparin = 1000 units. Total IV fluids: 31 mL. Contrast type used: Omnipaque 300 mgI/mL, 500 mL bottle. Complications: none. Estimated blood loss: 5mL-10mL. Post-op diagnosis: non obstructive CAD. Procedure completed. Patient transferred by wheelchair to CPRU. Vital chart was stopped. Access Site Site: Right Radial artery Sheath Size: 6 Fr Hemostasis Method: TR Band Hemostasis Success: Successful Procedure Medications Start: 7:46 AM Stop: 7:46 AM Medication: Benadryl Amount: 50 mg Route: I.V. Start: 7:49 AM Stop: 7:49 AM Medication: Versed Amount: 1 mg Route: I.V. Start: 7:49 AM Stop: 7:49 AM Medication: Fentanyl Amount: 50 mcg Route: I.V. Start: 7:57 AM Stop: 7:57 AM Medication: Nitrogylcerin Amount: 200 mcg Route: I.A. Start: 8:00 AM Stop: 8:00 AM Medication: Heparin Amount: 5000 units Route: I.V. Start: 8:07 AM Stop: 8:07 AM Medication: Versed Amount: 1 mg Route: I.V. Start: 8:07 AM Stop: 8:07 AM Medication: Fentanyl Amount: 50 mcg Route: I.V. I, the attending physician, have reviewed and verified all procedure medications. Yes, all medications given per verbal order History/Risk Factors Hypertension: Yes Dyslipidemia: Yes Peripheral Arterial Disease (PAD): No Myocardial Infarction (IN): No Obesity: Yes Renal Disease: No Tobacco Use: Former Prior Interventions PCI: No CABG: No Valve Surgery: No Report Signatures Finalized by Gene Cespedes MD on 04/14/2021 09:00 AM
--- NOTE | 2021-04-04 07:35 | W.PM.OPSFHP ---
Same Day Surgery H&P Indication for Procedure/HPI DATE OF PROCEDURE: April 04, 2021 CHIEF COMPLAINT/INDICATIONFOR SURGICAL PROCEDURE: Chest pain/abnormal stress test PREOP DIAGNOSIS: Chest pain/ abnormal stress test PLANNED PROCEDRUE: Operation Date: 04/04/21 07:00 Proposed Procedures p Cardiac Catheterization 53394 [id number](Left) - Gene Cespedes M.D Possible percutaneous coronary intervention 65-year-old man with past medical history of hypertension-having chest discomfort. On one occasion while in the [employer], he felt severe substernal chest discomfort. It was relieved after nitroglycerin but was severe enough for him to come to the ER. A nuclear stress test was performed that was abnormal. Patient is scheduled to undergo coronary angiogram and possible percutaneous coronary intervention. ROS CONSTITUTIONAL: No fever chills weight loss or gain or night sweats. [] HEENT: Normocephalic, atraumatic.[] RESPIRATORY: No cough, sputum, hemoptysis or wheezing.[] CARDIOVASCULAR: Has chest pain, shortness of breath, no PND, orthopnea, lower extremity edema, presyncope or syncope. [] GI: no nausea vomiting diarrhea. [] BODY HANGER: No numbness, tingling, weakness or loss of function in any part of the body. [] MUSCULOSKELETAL: No knee or joint pain or rashes. [] Medications/Allergies* Home Medications Medication Instructions Recorded Confirmed Type albuterol sulfate 90 mcg/actuation 1 puff INHALATION Q4H PRN 11/04/19 04/04/21 History aerosol inhaler aspirin 81 mg tablet,delayed 81 mg PO DAILY@11/04/19 04/04/21 History release diphenhydramine HCl 25 mg capsule 50 mg PO DAILY@0900 cap 11/04/19 04/04/21 History mecobalamin (vitamin B12) 5,000 5,000 mcg PO DAILY@89911/04/19 04/04/21 History mcg disintegrating tablet omega-3 fatty acids 1,000 mg 1,000 mg PO DAILY@0900 cap 11/04/19 04/04/21 History capsule potassium chloride 10 mEq 10 meq PO DAILY@0900 tab 11/04/19 04/04/21 History tablet,extended release atorvastatin 20 mg PO DAILY@0912/15/19 04/04/21 History budesonide-formoterol [Symbicort] 2 puff INHALATION BID@0900,2100 12/15/19 04/04/21 History levetiracetam 500 mg PO BID@0900,2100 12/15/19 04/04/21 History lisinopril 10 mg PO DAILY@0900 12/15/19 04/04/21 History omeprazole 40 mg PO DAILY@0900 08/12/20 04/04/21 History Atrovent HFA See Rx Instructions .ROUTE .COMPLEX 11/25/20 04/04/21 History calcium 1 tab PO DAILY@0900 11/25/20 04/04/21 History citalopram 10 mg PO DAILY@0900 11/25/20 04/04/21 History sumatriptan succinate 100 mg PO PRN MDD 2 TABS 11/25/20 04/04/21 History L-Lysine 1 tab PO DAILY@09 12/07/20 04/04/21 History Luis's wort 2 tab PO BID 12/07/20 04/04/21 History acetaminophen [Pain Relief 1,300 mg PO PRN 12/07/20 04/04/21 History (acetaminophen)] divalproex 250 mg PO TID 12/07/20 04/04/21 History nitroglycerin 0.4 mg SUBLINGUAL Q5M PRN 12/07/20 04/04/21 History varenicline [Chantix Continuing See Rx Instructions .ROUTE .COMPLEX 12/07/20 04/04/21 History Month Box] cholecalciferol (vitamin D3) 125 125 mcg PO DAILY 02/21/21 04/04/21 History mcg (5,000 unit) capsule magnesium oxide 400 mg PO DAILY 02/21/21 04/04/21 History hydrochlorothiazide 12.5 mg PO DAILY 04/04/21 04/04/21 History Allergies/Adverse Reactions Allergy/AdvReac Type Severity Reaction Status Date / Time No Known Allergies Allergy Verified 04/04/21 07:07 Current Medications: Generic Name Dose Route Start Last Admin Trade Name Freq PRN Reason Stop Dose Admin Sodium Chloride 1,000 mls @ 50 mls/hr 04/04/21 06:45 04/04/21 07:08 Sodium Chloride 0.9% IV 04/05/21 02:44 Not Given .Q20H ONE Pertinent History/Comorbid Conditions* Medical History (Updated 02/25/21 @ 17:13 by Debo Bowles MD) COPD (chronic obstructive pulmonary disease) GERD (gastroesophageal reflux disease) Seizure TIA (transient ischemic attack) Surgical History (Updated 12/15/19 @ 13:08 by Jose Rodriguez LPN) H/O knee surgery LEFT History of tonsillectomy and adenoidectomy Family History (Updated 11/04/19 @ 11:40 by Aura Britt LPN) Diabetes Mother CAD (coronary artery disease) Mother Alzheimer disease Father COPD (chronic obstructive pulmonary disease) Mother Brother Cancer Mother Glaucoma Hypertension Mother Stroke Mother Sister Social History Smoking and tobacco status: former smoker Alcohol intake: current Alcohol intake frequency: holidays/special occasions only Pertinent Exam Findings alert, oriented x 3, clear to auscultation bilaterally, regular rate & rhythm and operative site marked Conscious Sedation Assessment PATIENT ASSESSED PRIOR TO SEDATION, WITH NO CHANGE NOTED: Yes AIRWAY EVAL/ANESTHESIA PLAN: normal airway, ASA III, Monitored Anesthesia, Local Anesthesia, Risks, benefits & alternatives of sedation and/or procedure discussed and Patient agrees to continue as planned Recommendations Surgery/Procedure today (Left heart cath/possible percutaneous coronary intervention) Coding Level of Care Code Acute Armature Winder Repair for Colby Gonzalez
--- NOTE | 2021-04-04 08:30 | SUR.PHASEII ---
Post op fluids NS AT 100 ML/HR
--- NOTE | 2021-04-04 08:43 | SUR.PHASEII ---
POST OP NOTE Recieved from cath. Post cardiac cath via right radial approach. TR band in place. No hematoma or bleed noted at access site. Verbal post op instructions given. Verbal instructions given. No pain reported at this time. Will continue to monitor.
--- NOTE | 2021-04-04 09:07 | SUR.PHASEII ---
Vital Signs per assessment sheet. See vital sign record moving forward.
--- NOTE | 2021-04-04 09:30 | SUR.PHASEII ---
TR BAND Band deflation began. No hematoma formation noted.
--- NOTE | 2021-04-04 10:44 | SUR.PHASEII ---
TR BAND Band deflated. No hematoma noted. Will continue to monitor.
--- NOTE | 2021-04-04 11:30 | SUR.PHASEII ---
BAND OFF TR Band removed. Site secured with bandage and a wrist immobilizer. Verbal post procedure instructions went over with the patient about restrictions of right arm. Verbalized understanding.
== END 2021-04-04 12:46 | disposition home or self-care (01) ==
PROVIDERS: PCP Physician Assistant; Visit Provider Internal Medicine
DX: I25.10 Atherosclerotic heart disease of native coronary artery without angina pectoris (principal); R94.39 Abnormal result of other cardiovascular function study; J44.9 Chronic obstructive pulmonary disease, unspecified; K21.9 Gastro-esophageal reflux disease without esophagitis; Z86.73 Personal history of transient ischemic attack (TIA), and cerebral infarction without residual deficits; Z87.891 Personal history of nicotine dependence; Z82.49 Family history of ischemic heart disease and other diseases of the circulatory system; Z83.3 Family history of diabetes mellitus
CPT/HCPCS: 36415; 93452; C1769; C1887; C1894; J1200; J1644; J2250; J3010; J3490; J7030; Q9967

== ENCOUNTER 2021-04-15 13:53 | Emergency (ER) | payer MEDICARE, MEDICAID, SELFPAY ==
[2021-04-15 14:03] VITALS: BP 126/71; PULSE 90; RESP 18; TEMP 37.1; O2SAT 95; BMI 41.0
[2021-04-15 14:38] VITALS: BP 107/76; PULSE 78; RESP 16; O2SAT 96
[2021-04-15] MEDS: sodium chloride 0.9% 1,000 ML 999 ML IV (14:45)
[2021-04-15 14:59] LABS: Basophils # 0.1 10^3/uL (0.0-0.1); Basophils % 1.4 %; Eosinophils # 0.3 10^3/uL (0.0-0.8); Lymphocytes # 1.8 10^3/uL (0.8-4.8); Lymphocytes % 27.9 %; Mean Corpuscular HGB Conc 34.9 g/dL (30.0-36.0); Mean Corpuscular Hemoglobin 31.6 pg (28.0-34.0); Mean Corpuscular Volume 90.7 fL (80-94); Mean Platelet Volume 9.6 fL (7.4-10.4); Monocytes # 0.9 10^3/uL (0.2-0.9); Monocytes % 14.1 %; Neutrophils # 3.37 10^3/uL (1.8-7.7); Neutrophils % 52.1 %; Nucleated Red Blood Cells % 0 %; Platelet Count 262 10^3/cmm (130-400); Red Blood Count 4.74 10^6/uL (4.1-5.3); Red Cell Distribution Width 12.1 % (12.1-15.1); White Blood Count 6.5 10^3/uL (4.0-10.0)
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
[2021-04-15 15:19] LABS: Alanine Aminotransferase 21 U/L (0-41); Albumin Level 4.2 g/dL (3.5-5.2); Alkaline Phosphatase 73 IU/L (40-130); Anion Gap 12.9 (5-19); Aspartate Amino Transferase 19 U/L (0-40); Blood Urea Nitrogen 18 mg/dL (8-23); Calcium 9.7 mg/dL (8.5-10.5); Carbon Dioxide 28 mmol/L (22-29); Chloride 101 mmol/L (98-107); Globulin 2.7 g/dL (1.3-4.6); Glomerular Filtration Rate 60.8 mL/min (90-130); Glucose 137 mg/dL (65-115); Osmolality Calculated 290 mOsm/kg (285-295); Potassium 3.9 mmol/L (3.5-5.1); Sodium 138 mmol/L (136-145); Total Bilirubin 0.3 mg/dL (0.15-1.2); Total Protein 6.9 g/dL (6.6-8.7)
[2021-04-15] MEDS: acetaminophen 325 mg Tablet 650 MG PO (15:30)
[2021-04-15] MEDS: prochlorperazine 10 mg Tablet PO ×2 (15:30→17:32)
[2021-04-15] MEDS: diphenhydrAMINE 50 mg/mL SDV 1mL 25 MG IVP (15:31)
[2021-04-15] MEDS: metoclopramide 5 mg/mL SDV 2 mL 10 MG IVP (15:35)
[2021-04-15] MEDS: SUMAtriptan 6 mg/0.5 mL SDV SUBCUT (15:36)
[2021-04-15] MEDS: iohexol 350 mg/mL 100 mL Btl IV (15:56)
[2021-04-15 16:00] VITALS: BP 128/74; PULSE 68; RESP 16; O2SAT 95
[2021-04-15 17:00] VITALS: BP 165/75; PULSE 75; RESP 16; O2SAT 97
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
[2021-04-15 18:42] VITALS: BP 149/97; PULSE 56; RESP 16; O2SAT 98
== END 2021-04-15 18:59 | disposition home or self-care (01) ==
PROVIDERS: Emergency Provider Family Medicine; PCP Physician Assistant
DX: R51.9 Headache, unspecified (principal); Z87.891 Personal history of nicotine dependence; J44.9 Chronic obstructive pulmonary disease, unspecified; K21.9 Gastro-esophageal reflux disease without esophagitis; I10 Essential (primary) hypertension; G45.9 Transient cerebral ischemic attack, unspecified
CPT/HCPCS: 70450; 70496; 70498; 80053; 85025; 96361; 96372; 96374; 96375; 99284; J1200; J2765; J3030; J7030; Q0164; Q9967

== ENCOUNTER 2021-08-08 11:17 | Emergency (ER) | payer MEDICARE, MEDICAID, SELFPAY ==
--- NOTE | 2021-08-08 11:21 | ED_ITS ---
HPI - General Adult General: Chief complaint: General Medical Stated complaint: SHAKING AFTER FLU SHOT Time Seen by Provider: 08/08/21 11:20 History of Present Illness: HPI narrative: Mr. Leiva is a 66-year-old gentleman with history of COPD, TIA, hypertension who presents emergency department due to chills. He received the shingles and flu vaccine yesterday and shortly thereafter developed chills that kept him up all night. He endorses associated generalized malaise. He also endorses shortness of breath. No rash or other signs of allergic reaction/anaphylaxis. He denies sick contacts. He has received the first dose of his Covid vaccine. His symptoms are worse with movement and exertion but do not go with rest. They were improved by being under a blanket. No other specific exacerbating or alleviating factors identified. Review of Systems General: Reports: 10 or more systems reviewed and unremarkable except in HPI and below PFSH ED PFSH: Medical History COPD (chronic obstructive pulmonary disease) GERD (gastroesophageal reflux disease) Hypertension RBBB Seizure TIA (transient ischemic attack) Surgical History H/O knee surgery LEFT History of tonsillectomy and adenoidectomy Family History Father Alzheimer disease Mother COPD (chronic obstructive pulmonary disease) CAD (coronary artery disease) Diabetes Stroke Cancer Hypertension Brother COPD (chronic obstructive pulmonary disease) Sister Stroke Other Glaucoma Social History Smoking and tobacco status: former smoker Alcohol intake: current Alcohol intake frequency: holidays/special occasions only Physical Exam Narrative: EXAM NARRATIVE: GENERAL/CONSTITUTIONAL -mild to moderately- appearing. No acute distress. Eyes - PERRL, no conjunctival injection ENMT - Atraumatic external nose and ears. Moist mucous membranes NECK - supple. trachea midline CARDIOVASCULAR - regular rate and rhythm. Peripheral pulses 2+ and equal RESPIRATORY -clear to auscultation bilaterally. ABDOMEN/GI - Nontender/Nondistended. MSK - Extremities without obvious deformity. Generalized tenderness to muscle palpation. SKIN - Warm, Dry. No rash or localized injection site reaction appreciated NEURO - alert and appropriately oriented. Cranial nerves II through XII intact. Strength and sensation intact. Moves all extremities equally. PSYCH -odd affect, somewhat impaired memory Course ED course: - Patient was seen and evaluated by me at bedside - Patient placed on cardiac monitors, IV access obtained - Initial evaluation notable for somewhat ill appearance, nonfocal exam. The patient has an odd affect with somewhat impaired memory though reports that this may be baseline. -Symptom treatment ordered - Labs notable for no acute abnormality requiring further intervention - Imaging notable for no acute abnormality requiring further intervention - Upon serial reexamination after treatment the patient was improved - Based on patient history, evaluation, labs, and imaging as interpreted the most likely cause of the patient's condition is a vaccine reaction which is likely appropriate response of immune system - The results of ED evaluation were discussed with the patient including prescriptions and/or symptomatic cares (if applicable) including appropriate and responsible use, followup plan, and return precautions. The patient verbalized understanding and felt safe for discharge. - Patient discharged in satisfactory condition. Vital Signs: Vital signs: Vital Signs Temperature 98.6 F 08/08/21 13:38 Pulse Rate 70 08/08/21 13:38 Respiratory Rate 18 08/08/21 13:38 Blood Pressure 112/66 08/08/21 13:38 Pulse Oximetry 95 08/08/21 13:38 MDM - General Adult Medical Records: Attestation: I reviewed the patient's medical records. Lab Data: Attestation: I reviewed the patient's lab results. Labs: Lab Results 08/08/21 08/08/21 08/08/21 11:45 11:45 11:45 WBC 7.4 10^3/uL 10^3/ uL (4.0-10.0) RBC 4.42 10^6/uL 10^6 /uL (4.1-5.3) Hgb 14.1 g/dL g/dL (11.7-16.6) Hct 41.7 % L % (42.0-52.0) MCV 94.3 fl H fl (80-94) MCH 31.9 pg pg (28.0-34.0) MCHC 33.8 g/dL g/dL (30.0-36.0) RDW 12.1 % % (12.1-15.1) Plt Count 192 10^3/cmm 10^3 /cmm (130-400) MPV 10.1 fL fL (7.4-10.4) Neut % (Auto) 74.1 % % Lymph % (Auto) 11.3 % % [place] % (Auto) 12.7 % % Eos % (Auto) 0.9 % % Baso % (Auto) 0.7 % % Neut # (Auto) 5.51 10^3/uL 10^3 /uL (1.8-7.7) Lymph # (Auto) 0.8 10^3/uL 10^3/ uL (0.8-4.8) [place] # (Auto) 0.9 10^3/uL 10^3/ uL (0.2-0.9) Eos # (Auto) 0.1 10^3/uL 10^3/ uL (0.0-0.8) Baso # (Auto) 0.1 10^3/uL 10^3/ uL (0.0-0.1) Nucleated RBC % (a uto) 0 % % Nucleated RBCs # 0.0 /100WBC /100W BC Sodium 133 mmol/L L mmol /L (136-145) Potassium 4.4 mmol/L mmol/L (3.5-5.1) Chloride 98 mmol/L mmol/L (98-107) Carbon Dioxide 22 mmol/L mmol/L (22-29) Anion Gap 17.4 (5-19) BUN 17 mg/dL mg/dL (8-23) Creatinine 0.9 mg/dL mg/dL (0.7-1.2) GFR Calculation 84.4 mL/min L mL/ min (90-130) Glucose 149 mg/dL H mg/dL (65-115) POC Glucose Calculated Osmolal ity 280 mOsm/kg L mOs m/kg (285-295) Calcium 9.4 mg/dL mg/dL (8.5-10.5) Total Bilirubin 0.4 mg/dL mg/dL (0.15-1.2) AST 18 U/L U/L (0-40) ALT 21 U/L U/L (0-41) Alkaline Phosphata se 59 IU/L IU/L (40-130) Total Protein 6.8 g/dL g/dL (6.6-8.7) Albumin 4.1 g/dL g/dL (3.5-5.2) Globulin 2.7 g/dL g/dL (1.3-4.6) Procalcitonin 0.07 ng/mL ng/mL (0-0.5) SARS-CoV-2 Ag (Rap id) Negative (Negative) 08/08/21 12:05 WBC RBC Hgb Hct MCV MCH MCHC RDW Plt Count MPV Neut % (Auto) Lymph % (Auto) [place] % (Auto) Eos % (Auto) Baso % (Auto) Neut # (Auto) Lymph # (Auto) [place] # (Auto) Eos # (Auto) Baso # (Auto) Nucleated RBC % (a uto) Nucleated RBCs # Sodium Potassium Chloride Carbon Dioxide Anion Gap BUN Creatinine GFR Calculation Glucose POC Glucose 142 mg/dL H mg/dL (70-110) Calculated Osmolal ity Calcium Total Bilirubin AST ALT Alkaline Phosphata se Total Protein Albumin Globulin Procalcitonin SARS-CoV-2 Ag (Rap id) Discharge Plan Discharge Patient Disposition: Home Clinical Impression: Vaccine reaction Condition: Stable Prescriptions: No Action magnesium oxide 400 mg magnesium tablet 400 mg PO DAILY@0900 RF: 0 cholecalciferol (vitamin D3) 125 mcg (5,000 unit) capsule 125 mcg PO DAILY@0900 RF: 0 albuterol sulfate [ProAir HFA] 90 mcg/actuation HFA aerosol inhaler 1 puff INHALATION Q4H PRN (Reason: Shortness Of Breath) RF: 0 mecobalamin (vitamin B12) 5,000 mcg tablet,disintegrating 5,000 mcg PO DAILY@0900 RF: 0 omega-3 fatty acids 1,000 mg capsule 1,000 mg PO DAILY@0900 RF: 0 aspirin 81 mg tablet,delayed release (DR/EC) 81 mg PO DAILY@20 RF: 0 diphenhydramine HCl [Allergy Relief(diphenhydramin)] 25 mg capsule 100 mg PO DAILY@0900 RF: 0 clopidogrel 75 mg tablet 75 mg PO DAILY@0900 Qty: 90 RF: 3 valsartan 160 mg tablet 160 mg PO DAILY Qty: 90 RF: 2 isosorbide mononitrate 30 mg tablet extended release 24 hr 15 mg PO DAILY@0900 Qty: 45 RF: 3 hydrochlorothiazide 25 mg tablet 25 mg PO DAILY@0900 Qty: 90 RF: 2 atorvastatin 20 mg Tablet 20 mg PO DAILY@0900 RF: 0 budesonide-formoterol [Symbicort] 160-4.5 mcg/actuation HFA aerosol inhaler 2 puff INHALATION BID@0900,2100 RF: 0 One Daily Vitamin Tablet 1 tab PO DAILY@0900 RF: 0 pantoprazole 20 mg Tablet,Delayed Release (Dr/Ec) 20 mg PO DAILY@0900 RF: 0 levetiracetam 750 mg tablet extended release 24 hr 750 mg PO BID@0900,2100 RF: 0 Compazine 5 mg tablet 5 mg PO Q12H PRN (Reason: headache) Qty: 10 RF: 0 hydrocodone-acetaminophen 5-325 mg tablet 1 tab PO Q6H PRN (Reason: pain) Qty: 10 RF: 0 citalopram 10 mg tablet 10 mg PO DAILY@0900 RF: 0 sumatriptan succinate 100 mg tablet 100 mg PO PRN MDD 2 TABS RF: 0 Atrovent HFA 17 mcg/actuation HFA aerosol inhaler See Rx Instructions .ROUTE .COMPLEX RF: 0 calcium 600 mg tablet 1 tab PO DAILY@0900 RF: 0 acetaminophen [Pain Relief (acetaminophen)] 650 mg Tablet Extended Release 1,300 mg PO PRN RF: 0 nitroglycerin 0.4 mg tablet, sublingual 0.4 mg sublingual Q5M PRN (Reason: Chest Pain) RF: 0 divalproex 250 mg tablet extended release 24 hr 250 mg PO TID@0900,1200,2100 RF: 0 Chantix Continuing Month Box 1 mg tablet See Rx Instructions .ROUTE .COMPLEX RF: 0 L-Lysine 500 mg tablet 1 tab PO DAILY@09 RF: 0 [place]'s wort 300 mg capsule 2 tab PO BID@0900,2100 RF: 0 Discharge Orders: Discharge ED (Routine); Ordered 08/08/21 Ordered By: Miguel Angel Campa Referrals: Phoebe Nevarez PA [Primary Care Provider] - Discharge Diet: Usual diet Discharge Activity: Resume usual activity Patient Instructions: Flu Shot (Vaccine) for Adults (ED), Fatigue (ED) Activity Restrictions/Additional Instructions: Thank you for visiting the emergency department. You were seen and evaluated for chills after receiving vaccines yesterday. The exact cause of your symptoms is unclear however is likely related to increased immune system response to the vaccines. No additional findings were noted. Please follow-up with your primary care provider. Please return the emergency department for anything that you are concerned about and feel needs emergency department evaluation. Coding Level of Care Code ED Arc Furnace Operator for Colby Gonzalez
[2021-08-08 11:23] VITALS: BP 106/67; PULSE 99; RESP 18; TEMP 36.7; O2SAT 97; BMI 40.7
[2021-08-08 11:36] VITALS: BP 117/63; PULSE 91; RESP 18; TEMP 36.7; O2SAT 95
--- NOTE | 2021-08-08 11:40 | XR_ITS ---
WS: [id number] XR chest 1V portable [id number] REASON FOR EXAM: sob FINDINGS: The chest is unchanged compared to 12/07/2020. Moderately tortuous ectatic thoracic aorta without focal aneurysmal dilatation. Normal heart size. Calcified granulomatous disease bilaterally. Chronic coarse reticular interstitial change diffusely throughout both lungs. Degenerative changes in the mid and lower thoracic spine. XR/XR chest 1V portable [id number] IMPRESSION: Chronic interstitial lung disease. No definite acute abnormality identified.
--- NOTE | 2021-08-08 11:42 | CT_ITS ---
WS: [id number] CT HEAD NONCONTRAST HISTORY: abnormal speech TECHNIQUE: Contiguous axial imaging performed through the brain in 2.5 mm imaging. Bone and soft tiss ue windows. Sagittal and coronal reformats reviewed. All CT scans at [facility] use at least one of these dose optimization techniques: automated exposure control; mA and/or kV adjustment per pa tient size (includes targeted exams where dose is matched to clinical indication); or iterative recon struction. DLP: 965.18 mGy.cm COMPARISON: 04/15/2021 No acute intracranial hemorrhage, midline shift or mass effect. Mild atrophy and mild chronic microvascular ischemic type changes. Similar to the prior examination. No new infarcts. Ventricles: Normal size with no hydrocephalus. Mild scattered calcified plaque within the intracranial carotid arteries. Paranasal sinuses: Small mucous retention cyst in the RIGHT maxillary sinus. No air-fluid levels. Mastoid air cells: Small amount of fluid in the tip of the LEFT mastoid air cell. Calvarium and scalp: Skull is intact with no soft tissue edema or swelling. CT/CT head wo con* [id number] IMPRESSION: 1. No acute intracranial hemorrhage or edema. 2. Mild cerebral atrophy and chronic ischemic disease. Stable since 04/15/2021.
[2021-08-08] MEDS: sodium chloride 0.9% 1,000 ML 999 ML IV (12:08)
[2021-08-08 12:15] LABS: Glucose Point of Care 142 mg/dL (70-110)
[2021-08-08 12:31] LABS: Basophils # 0.1 10^3/uL (0.0-0.1); Basophils % 0.7 %; Eosinophils # 0.1 10^3/uL (0.0-0.8); Eosinophils % 0.9 %; Hematocrit 41.7 % (42.0-52.0); Hemoglobin 14.1 g/dL (11.7-16.6); Lymphocytes # 0.8 10^3/uL (0.8-4.8); Lymphocytes % 11.3 %; Mean Corpuscular HGB Conc 33.8 g/dL (30.0-36.0); Mean Corpuscular Hemoglobin 31.9 pg (28.0-34.0); Mean Corpuscular Volume 94.3 fl (80-94); Mean Platelet Volume 10.1 fL (7.4-10.4); Monocytes # 0.9 10^3/uL (0.2-0.9); Monocytes % 12.7 %; Neutrophils # 5.51 10^3/uL (1.8-7.7); Neutrophils % 74.1 %; Nucleated Red Blood Cells % 0 %; Platelet Count 192 10^3/cmm (130-400); Red Blood Count 4.42 10^6/uL (4.1-5.3); Red Cell Distribution Width 12.1 % (12.1-15.1); White Blood Count 7.4 10^3/uL (4.0-10.0)
[2021-08-08 12:50] LABS: Alanine Aminotransferase 21 U/L (0-41); Albumin Level 4.1 g/dL (3.5-5.2); Alkaline Phosphatase 59 IU/L (40-130); Aspartate Amino Transferase 18 U/L (0-40); Blood Urea Nitrogen 17 mg/dL (8-23); Calcium 9.4 mg/dL (8.5-10.5); Carbon Dioxide 22 mmol/L (22-29); Chloride 98 mmol/L (98-107); Globulin 2.7 g/dL (1.3-4.6); Glomerular Filtration Rate 84.4 mL/min (90-130); Glucose 149 mg/dL (65-115); Osmolality Calculated 280 mOsm/kg (285-295); Sodium 133 mmol/L (136-145); Total Bilirubin 0.4 mg/dL (0.15-1.2); Total Protein 6.8 g/dL (6.6-8.7)
[2021-08-08 12:52] LABS: Anion Gap 17.4 (5-19); Potassium 4.4 mmol/L (3.5-5.1)
[2021-08-08 12:56] LABS: Procalcitonin 0.07 ng/mL (0-0.5)
[2021-08-08 13:09] LABS: SARS Covid-2 Antigen Negative (Negative)
[2021-08-08] MEDS: ketorolac 30 mg/mL INJ 15 MG IVP (13:14)
[2021-08-08 13:38] VITALS: BP 112/66; PULSE 70; RESP 18; TEMP 37; O2SAT 95
== END 2021-08-08 13:49 | disposition home or self-care (01) ==
PROVIDERS: Emergency Provider Emergency Medicine; PCP Physician Assistant
DX: T88.7XXA Unspecified adverse effect of drug or medicament, initial encounter (principal); T50.B95A Adverse effect of other viral vaccines, initial encounter; Z79.82 Long term (current) use of aspirin; Z79.02 Long term (current) use of antithrombotics/antiplatelets; J44.9 Chronic obstructive pulmonary disease, unspecified; I10 Essential (primary) hypertension; Z86.73 Personal history of transient ischemic attack (TIA), and cerebral infarction without residual deficits; Z87.891 Personal history of nicotine dependence; Z20.822 Contact with and (suspected) exposure to COVID-19
CPT/HCPCS: 36416; 70450; 71045; 80053; 82962; 84145; 85025; 87426; 96361; 96374; 99283; J1885; J7030

== ENCOUNTER 2021-09-10 23:15 | Emergency (ER) | payer MEDICARE, MEDICAID, SELFPAY ==
[2021-09-10 23:17] VITALS: BP 141/82; PULSE 72; RESP 18; TEMP 36.8; O2SAT 96; BMI 40.7
[2021-09-10 23:36] VITALS: BP 134/69; PULSE 69; RESP 14; O2SAT 96
--- NOTE | 2021-09-10 23:52 | XRR_ITS ---
PROCEDURE INFORMATION: Exam: XR Chest Exam date and time: 09/10/2021 11:52 PM Age: 66 years old Clinical indication: Pain; Right-sided and left-sided; Additional info: Cp TECHNIQUE: Imaging protocol: XR of the chest. Views: 1 view. COMPARISON: CR XR chest 1V portable [id number] 08/08/2021 12:06 PM FINDINGS: Lungs: See Soft tissues finding. Pleural spaces: Unremarkable. No pleural effusion. No pneumothorax. Heart/Mediastinum: There is mild cardiomegaly. Bones/joints: Unremarkable. Soft tissues: Examination limited by body habitus. Hazy areas of increased density at the periphery of both lungs which may be secondary to body habitus or infiltrate. XR/XR chest 1V portable [id number] IMPRESSION: 1. Examination limited by body habitus. 2. Mild cardiomegaly. 3. Hazy areas of increased density at the periphery of both lungs which may be secondary to body habitus or infiltrate. Radiation Dose CTDIVOL = (mGy): DLP = (mGy-cm)
[2021-09-10 23:57] VITALS: BP 115/68; PULSE 68; RESP 14; O2SAT 95
[2021-09-11 00:12] VITALS: RESP 16
[2021-09-11] MEDS: morphine 4 mg/mL SDV 1 mL IVP (00:12)
[2021-09-11] MEDS: ondansetron 2 mg/ML SDV 2 mL 4 MG IVP (00:12)
[2021-09-11] MEDS: nitroglycerin 1 gm/inch oint Pkt 0.5 INCH TOPICAL (00:13)
--- NOTE | 2021-09-11 00:21 | ED_ITS ---
HPI - Chest Pain General: Chief Complaint: Chest Pain Stated Complaint: CP Time Seen by Provider: 09/10/21 23:20 History of Present Illness: HPI narrative: 66-year-old male he states that he had a cardiac catheterization back in April. No stents in his heart. He presents with right-sided chest pain that started while sitting at home watching a documentary tonight. Complains of shortness of breath. No nausea or diaphoresis pain improved after 1 nitroglycerin at home, and improved further after EMS gave him 1 nitroglycerin and aspirin. He was a 10 out of 10, currently a 3 out of 10 or 4 out of 10. He notes he has been coughing more recently, with some phlegm. No fever. No increased leg swelling MD complaint: chest pain Pertinent past history: coronary artery disease Onset (ago): hour(s) (2) Timing of current episode: constant Prior episodes: Yes Onset: during rest Pain location: right chest Pain radiation: none Quality: sharp Relieving factors: nothing Exacerbating factors: inspiration Associated symptoms: Reports dyspnea; Deny abdominal pain, diaphoresis, fever(s), leg edema, nausea or palpitations Treatment prior to arrival: aspirin and nitroglycerin Review of Systems Const: Denies: fever(s) or diaphoresis Eyes: Denies: change in vision ENMT: Denies: throat pain Card: Reports: chest pain; Denies: palpitations, irregular heart rhythm or edema Resp: Reports: dyspnea and productive cough; Denies: wheezing GI: Denies: abdominal pain or nausea PFSH ED PFSH: Medical History COPD (chronic obstructive pulmonary disease) GERD (gastroesophageal reflux disease) Hypertension RBBB Seizure TIA (transient ischemic attack) Surgical History H/O knee surgery LEFT History of tonsillectomy and adenoidectomy Family History Father Alzheimer disease Mother COPD (chronic obstructive pulmonary disease) CAD (coronary artery disease) Diabetes Stroke Cancer Hypertension Brother COPD (chronic obstructive pulmonary disease) Sister Stroke Other Glaucoma Social History Smoking and tobacco status: former smoker Alcohol intake: current Alcohol intake frequency: holidays/special occasions only Physical Exam Const: COMMON NORMALS: no acute distress, patient oriented x3 and alert GENERAL APPEARANCE: cooperative and comfortable HENMT: COMMON NORMALS: normocephalic HEAD & SCALP: normocephalic Eye: COMMON NORMALS: Equal, round and reactive pupils present and EOMs intact bilaterally PUPIL: Yes Equal, round and reactive pupils present Chest: COMMONS NORMALS: normal inspection of the chest Resp: COMMON NORMALS: normal respiratory effort, No use of accessory muscles and clear to auscultation bilaterally AUSCULTATION: clear to auscultation bilaterally Cardio: COMMON NORMALS: regular rate and regular rhythm RATE: regular rate RHYTHM: regular rhythm GI: COMMON NORMALS: Normal to inspection, nondistended, normoactive bowel sounds present and Soft to palpation PALPATION: Yes Soft to palpation Neuro: COMMON NORMALS: patient oriented x3 SENSORIUM/ORIENTATION: Yes alert Course Vital Signs: Vital signs: Vital Signs Temperature 98.3 F 09/10/21 23:17 Pulse Rate 63 09/11/21 02:18 Respiratory Rate 16 09/11/21 02:18 Blood Pressure 120/59 09/11/21 02:18 Pulse Oximetry 97 09/11/21 02:18 MDM - Chest Pain MDM Narrative: Medical decision making narrative: 66-year-old male presents with chest discomfort. It is somewhat pleuritic in nature. EKG shows a sinus rhythm with a left axis. LVH criteria are met. Intervals are normal. No acute ST changes. Rate is 60. Chest x-ray shows bibasilar patchy opacities that could be pneumonia. His white blood cell count is 7.4. His creatinine is a bit elevated at 1.4. Oxygen saturations are 95% on room air. He is breathing fine. He does have a history of COPD from smoking according to his . Covid swab is pending. Troponins did not elevated 2 hours significantly. Chest pain is essentially improved resolved after morphine. He will be allowed home. Be treated for bronchitis/possible pneumonia with COPD exacerbation Lab Data: Labs: Lab Results 09/10/21 09/10/21 09/10/21 23:45 23:45 23:45 WBC 7.4 10^3/uL 10^3/ uL (4.0-10.0) RBC 4.59 10^6/uL 10^6 /uL (4.1-5.3) Hgb 14.6 g/dL g/dL (11.7-16.6) Hct 42.6 % % (42.0-52.0) MCV 92.8 fl fl (80-94) MCH 31.8 pg pg (28.0-34.0) MCHC 34.3 g/dL g/dL (30.0-36.0) RDW 12.2 % % (12.1-15.1) Plt Count 249 10^3/cmm 10^3 /cmm (130-400) MPV 10.1 fL fL (7.4-10.4) Neut % (Auto) 53.9 % % Lymph % (Auto) 27.9 % % [place] % (Auto) 12.4 % % Eos % (Auto) 4.6 % % Baso % (Auto) 0.8 % % Neut # (Auto) 3.98 10^3/uL 10^3 /uL (1.8-7.7) Lymph # (Auto) 2.1 10^3/uL 10^3/ uL (0.8-4.8) [place] # (Auto) 0.9 10^3/uL 10^3/ uL (0.2-0.9) Eos # (Auto) 0.3 10^3/uL 10^3/ uL (0.0-0.8) Baso # (Auto) 0.1 10^3/uL 10^3/ uL (0.0-0.1) Nucleated RBC % (a uto) 0 % % Nucleated RBCs # 0.0 /100WBC /100W BC PT 12.60 SECONDS SEC ONDS (12.1-14.9) INR 0.92 (0.8-1.2) APTT 26.2 SECONDS SECO NDS (23.9-36.7) Sodium 134 mmol/L L mmol /L (136-145) Potassium 4.6 mmol/L mmol/L (3.5-5.1) Chloride 97 mmol/L L mmol/ L (98-107) Carbon Dioxide 23 mmol/L mmol/L (22-29) Anion Gap 18.6 (5-19) BUN 19 mg/dL mg/dL (8-23) Creatinine 1.4 mg/dL H mg/dL (0.7-1.2) GFR Calculation 50.7 mL/min L mL/ min (90-130) Glucose 196 mg/dL H mg/dL (65-115) Calculated Osmolal ity 286 mOsm/kg mOsm/ kg (285-295) Calcium 9.2 mg/dL mg/dL (8.5-10.5) Total Bilirubin 0.2 mg/dL mg/dL (0.15-1.2) AST 20 U/L U/L (0-40) ALT 23 U/L U/L (0-41) Alkaline Phosphata se 76 IU/L IU/L (40-130) Troponin T Baselin e Troponin T 120 Min [place] Troponin T NT-Pro-B Natriuret Pep 55 pg/mL pg/mL (0-125) Total Protein 7.1 g/dL g/dL (6.6-8.7) Albumin 4.4 g/dL g/dL (3.5-5.2) Globulin 2.7 g/dL g/dL (1.3-4.6) SARS-CoV-2 Ag (Rap id) 09/10/21 09/11/21 09/11/21 23:45 02:02 02:25 WBC RBC Hgb Hct MCV MCH MCHC RDW Plt Count MPV Neut % (Auto) Lymph % (Auto) [place] % (Auto) Eos % (Auto) Baso % (Auto) Neut # (Auto) Lymph # (Auto) [place] # (Auto) Eos # (Auto) Baso # (Auto) Nucleated RBC % (a uto) Nucleated RBCs # PT INR APTT Sodium Potassium Chloride Carbon Dioxide Anion Gap BUN Creatinine GFR Calculation Glucose Calculated Osmolal ity Calcium Total Bilirubin AST ALT Alkaline Phosphata se Troponin T Baselin e 9 ng/L ng/L (0-15) Troponin T 120 Min [place] 7.35 ng/L ng/L (0-15) [place] Troponin T -1.65 ABS# L ABS# (0-10) NT-Pro-B Natriuret Pep Total Protein Albumin Globulin SARS-CoV-2 Ag (Rap id) Negative (Negative) Discharge Plan Discharge Patient Disposition: Home Clinical Impression: Atypical chest pain COPD (chronic obstructive pulmonary disease) Qualifiers: COPD type: chronic bronchitis Chronic bronchitis type: mucopurulent Qualified Code(s): J41.1 - Mucopurulent chronic bronchitis Condition: Stable Prescriptions: New Medrol (Gian) 4 mg tablets,dose pack See Rx Instructions .ROUTE .COMPLEX Qty: 21 RF: 0 doxycycline hyclate 100 mg capsule 100 mg PO BID 7 Days Qty: 14 RF: 0 No Action magnesium oxide 400 mg magnesium tablet 400 mg PO DAILY@0900 RF: 0 cholecalciferol (vitamin D3) 125 mcg (5,000 unit) capsule 125 mcg PO DAILY@0900 RF: 0 albuterol sulfate [ProAir HFA] 90 mcg/actuation HFA aerosol inhaler 1 puff INHALATION Q4H PRN (Reason: Shortness Of Breath) RF: 0 mecobalamin (vitamin B12) 5,000 mcg tablet,disintegrating 5,000 mcg PO DAILY@0900 RF: 0 omega-3 fatty acids 1,000 mg capsule 1,000 mg PO DAILY@0900 RF: 0 aspirin 81 mg tablet,delayed release (DR/EC) 81 mg PO DAILY@20 RF: 0 diphenhydramine HCl [Allergy Relief(diphenhydramin)] 25 mg capsule 100 mg PO DAILY@0900 RF: 0 clopidogrel 75 mg tablet 75 mg PO DAILY@0900 Qty: 90 RF: 3 valsartan 160 mg tablet 160 mg PO DAILY Qty: 90 RF: 2 isosorbide mononitrate 30 mg tablet extended release 24 hr 15 mg PO DAILY@0900 Qty: 45 RF: 3 hydrochlorothiazide 25 mg tablet 25 mg PO DAILY@0900 Qty: 90 RF: 2 atorvastatin 20 mg Tablet 20 mg PO DAILY@0900 RF: 0 budesonide-formoterol [Symbicort] 160-4.5 mcg/actuation HFA aerosol inhaler 2 puff INHALATION BID@0900,2100 RF: 0 multivitamin [One Daily Vitamin] Tablet 1 tab PO DAILY@0900 RF: 0 pantoprazole 20 mg Tablet,Delayed Release (Dr/Ec) 20 mg PO DAILY@0900 RF: 0 levetiracetam 750 mg tablet extended release 24 hr 750 mg PO BID@0900,2100 RF: 0 prochlorperazine maleate [Compazine] 5 mg tablet 5 mg PO Q12H PRN (Reason: headache) Qty: 10 RF: 0 hydrocodone-acetaminophen 5-325 mg tablet 1 tab PO Q6H PRN (Reason: pain) Qty: 10 RF: 0 citalopram 10 mg tablet 10 mg PO DAILY@0900 RF: 0 sumatriptan succinate 100 mg tablet 100 mg PO PRN MDD 2 TABS RF: 0 Atrovent HFA 17 mcg/actuation HFA aerosol inhaler See Rx Instructions .ROUTE .COMPLEX RF: 0 calcium 600 mg tablet 1 tab PO DAILY@0900 RF: 0 acetaminophen [Pain Relief (acetaminophen)] 650 mg Tablet Extended Release 1,300 mg PO PRN RF: 0 nitroglycerin 0.4 mg tablet, sublingual 0.4 mg sublingual Q5M PRN (Reason: Chest Pain) RF: 0 divalproex 250 mg tablet extended release 24 hr 250 mg PO TID@0900,1200,2100 RF: 0 varenicline [Chantix Continuing Month Box] 1 mg tablet See Rx Instructions .ROUTE .COMPLEX RF: 0 L-Lysine 500 mg tablet 1 tab PO DAILY@09 RF: 0 Roland's wort 300 mg capsule 2 tab PO BID@0900,2100 RF: 0 Discharge Orders: Discharge ED (Routine); Ordered 09/11/21 Ordered By: Wicho Mark Referrals: Phoebe Nevarez PA [Primary Care Provider] - Discharge Diet: Advance as tolerated Discharge Activity: Limit activity as instructed Patient Instructions: Chest Pain (ED), Acute Bronchitis (ED) Activity Restrictions/Additional Instructions: You should quarantine at home until the final results of your COVID-19 test are returned and are negative. Return for worsening shortness of breath despite treatment, worsening chest pain despite treatment, fever greater than 100 despite 2-3 doses of antibiotics, other concerning symptoms. Medications as directed Coding Level of Care Code ED Right Of Way Supervisor for Colby Fwd Exam Detailed
[2021-09-11] MEDS: sodium chloride 0.9% 500 ML 999 ML IV (00:40)
[2021-09-11 00:41] LABS: Basophils # 0.1 10^3/uL (0.0-0.1); Basophils % 0.8 %; Eosinophils # 0.3 10^3/uL (0.0-0.8); Eosinophils % 4.6 %; Hematocrit 42.6 % (42.0-52.0); Hemoglobin 14.6 g/dL (11.7-16.6); Lymphocytes # 2.1 10^3/uL (0.8-4.8); Lymphocytes % 27.9 %; Mean Corpuscular HGB Conc 34.3 g/dL (30.0-36.0); Mean Corpuscular Hemoglobin 31.8 pg (28.0-34.0); Mean Corpuscular Volume 92.8 fl (80-94); Mean Platelet Volume 10.1 fL (7.4-10.4); Monocytes # 0.9 10^3/uL (0.2-0.9); Monocytes % 12.4 %; Neutrophils # 3.98 10^3/uL (1.8-7.7); Neutrophils % 53.9 %; Nucleated Red Blood Cells % 0 %; Platelet Count 249 10^3/cmm (130-400); Red Blood Count 4.59 10^6/uL (4.1-5.3); Red Cell Distribution Width 12.2 % (12.1-15.1); White Blood Count 7.4 10^3/uL (4.0-10.0)
[2021-09-11 00:47] LABS: INR 0.92 (0.8-1.2)
[2021-09-11 00:48] LABS: Partial Thromboplastin Time 26.2 SECONDS (23.9-36.7)
[2021-09-11 00:59] LABS: Troponin(5th) Baseline 9 ng/L (0-15)
[2021-09-11 01:07] LABS: Alanine Aminotransferase 23 U/L (0-41); Albumin Level 4.4 g/dL (3.5-5.2); Alkaline Phosphatase 76 IU/L (40-130); Anion Gap 18.6 (5-19); Aspartate Amino Transferase 20 U/L (0-40); Blood Urea Nitrogen 19 mg/dL (8-23); Calcium 9.2 mg/dL (8.5-10.5); Carbon Dioxide 23 mmol/L (22-29); Chloride 97 mmol/L (98-107); Globulin 2.7 g/dL (1.3-4.6); Glomerular Filtration Rate 50.7 mL/min (90-130); Glucose 196 mg/dL (65-115); NT Pro B Type Natriuretic Pept 55 pg/mL (0-125); Osmolality Calculated 286 mOsm/kg (285-295); Potassium 4.6 mmol/L (3.5-5.1); Sodium 134 mmol/L (136-145); Total Bilirubin 0.2 mg/dL (0.15-1.2); Total Protein 7.1 g/dL (6.6-8.7)
--- NOTE | 2021-09-11 01:52 | ECG_ITS ---
[facility] Test Date: 2021-09-11 Pat Name: Melvin Leiva Department: Room: Gender: Male Compensation And Benefits Manager: : 1955 Requested By: Wicho Martinez Order Number: [id number] Renzo MD: Gene Cespedes M.D. Measurements Intervals [place] Rate: 61 P: 7 WI: 161 QRS: -19 QRSD: 110 T: 1 QT: 411 QTc: 416 Interpretive Statements SINUS RHYTHM VOLTAGE CRITERIA FOR LVH [MEETS CRITERIA IN ONE OF: R(aVL), S(V1), R(V5), R(V5/V6)+S(V1)] Compared to ECG 01/17/2021 21:24:06 Left ventricular hypertrophy now present Sinus bradycardia no longer present Incomplete right bundle-branch block no longer present Electronically Signed On 09-11-2021 16:49:18 MANPOWER DEVELOPMENT ADVISOR by Gene Cespedes M.D. [id number]
[2021-09-11 02:18] VITALS: BP 120/59; PULSE 63; RESP 16; O2SAT 97
[2021-09-11 02:36] LABS: Troponin 5 2HR 7.35 ng/L (0-15)
[2021-09-11 02:58] LABS: Troponin 5 2HR Delta -1.65 ABS# (0-10)
[2021-09-11] MEDS: doxycycline 100 mg Tablet PO (03:11)
[2021-09-11 03:15] LABS: SARS Covid-2 Antigen Negative (Negative)
[2021-09-11 03:30] VITALS: BP 99/57; PULSE 77; RESP 18; O2SAT 93
[2021-09-11 13:36] LABS: Coronavirus Test Green County Not Detected
--- NOTE | 2021-09-11 18:38 | PC.NURSE ---
Left voice mail.
--- NOTE | 2021-09-12 11:05 | PC.NURSE ---
Pt returned call. Informed pt of Negative COVID
== END 2021-09-11 03:34 | disposition home or self-care (01) ==
PROVIDERS: Emergency Provider Emergency Medicine; PCP Physician Assistant
DX: R07.89 Other chest pain (principal); J41.1 Mucopurulent chronic bronchitis; Z79.82 Long term (current) use of aspirin; Z79.891 Long term (current) use of opiate analgesic; K21.9 Gastro-esophageal reflux disease without esophagitis; R56.9 Unspecified convulsions; I10 Essential (primary) hypertension; I45.10 Unspecified right bundle-branch block; Z87.891 Personal history of nicotine dependence
CPT/HCPCS: 71045; 80053; 83880; 84484; 85025; 85610; 85730; 87426; 87635; 93005; 96374; 96375; 99284; J2270; J2405; J2930; J7040

== ENCOUNTER → 2022-02-01 13:21 | Outpatient (BNVA) | payer MEDICARE, MEDICAID, SELFPAY | PROVIDERS: PCP Physician Assistant; Visit Provider Nurse Practitioner Family | DX: I10 Essential (primary) hypertension (principal); Z87.891 Personal history of nicotine dependence | CPT/HCPCS: 99213 ==

== ENCOUNTER → 2022-08-30 10:56 | Outpatient (BNVA) | payer MEDICARE, MEDICAID, SELFPAY | PROVIDERS: PCP Physician Assistant; Referring Provider Physician Assistant; Visit Provider Student in an Organized Health Care Education/Training Program | DX: M17.11 Unilateral primary osteoarthritis, right knee (principal) | CPT/HCPCS: 20610; 73560; 73565; 99214; J3301 ==

== ENCOUNTER → 2022-10-11 10:49 | Outpatient (BNVA) | payer MEDICARE, MEDICAID, SELFPAY | PROVIDERS: PCP Physician Assistant; Visit Provider Student in an Organized Health Care Education/Training Program | DX: M17.11 Unilateral primary osteoarthritis, right knee (principal) | CPT/HCPCS: 20610; 73560; 73565; 99214 ==

== ENCOUNTER → 2022-11-30 09:51 | Outpatient (BNVA) | payer MEDICARE, MEDICAID, SELFPAY | PROVIDERS: PCP Physician Assistant; Visit Provider Student in an Organized Health Care Education/Training Program | DX: M17.0 Bilateral primary osteoarthritis of knee (principal) | CPT/HCPCS: 99213 ==

== ENCOUNTER → 2023-02-25 14:33 | Outpatient (BNVA) | payer MEDICARE, MEDICAID, SELFPAY | PROVIDERS: PCP Physician Assistant; Visit Provider Student in an Organized Health Care Education/Training Program | DX: M17.12 Unilateral primary osteoarthritis, left knee (principal) | CPT/HCPCS: 99213 ==

== ENCOUNTER → 2023-05-24 08:10 | Outpatient (BNVA) | payer MEDICARE, MEDICAID, SELFPAY | PROVIDERS: PCP Physician Assistant; Visit Provider Student in an Organized Health Care Education/Training Program | DX: M17.12 Unilateral primary osteoarthritis, left knee (principal) | CPT/HCPCS: 20610; 99213 ==

== ENCOUNTER → 2023-07-09 11:36 | Outpatient (BNVA) | payer MEDICARE, MEDICAID, SELFPAY | PROVIDERS: PCP Physician Assistant; Visit Provider Internal Medicine Cardiovascular Disease | DX: M17.9 Osteoarthritis of knee, unspecified (principal); I45.10 Unspecified right bundle-branch block; I10 Essential (primary) hypertension; K21.9 Gastro-esophageal reflux disease without esophagitis; R56.9 Unspecified convulsions; J41.1 Mucopurulent chronic bronchitis; E66.9 Obesity, unspecified; Z68.41 Body mass index [BMI] 40.0-44.9, adult; Z86.73 Personal history of transient ischemic attack (TIA), and cerebral infarction without residual deficits; Z87.891 Personal history of nicotine dependence | CPT/HCPCS: 99213 ==

== ENCOUNTER → 2023-11-28 11:50 | Outpatient (BNVA) | payer MEDICARE, SELFPAY | PROVIDERS: PCP Physician Assistant; Visit Provider Internal Medicine Cardiovascular Disease | DX: I10 Essential (primary) hypertension (principal); I45.10 Unspecified right bundle-branch block; E66.9 Obesity, unspecified; R56.9 Unspecified convulsions; Z86.73 Personal history of transient ischemic attack (TIA), and cerebral infarction without residual deficits; Z87.891 Personal history of nicotine dependence; Z68.41 Body mass index [BMI] 40.0-44.9, adult | CPT/HCPCS: 99213 ==

== ENCOUNTER → 2023-11-29 08:03 | Outpatient (BNVA) | payer MEDICARE, SELFPAY | PROVIDERS: PCP Physician Assistant; Visit Provider Student in an Organized Health Care Education/Training Program | DX: M17.12 Unilateral primary osteoarthritis, left knee | CPT/HCPCS: 20610; 99213 ==

== ENCOUNTER 2023-12-31 11:02 | Emergency (ER) | payer MEDICARE, SELFPAY ==
--- NOTE | 2023-12-31 11:04 | XR_ITS ---
WS: [id number] Exam: XR knee LT 3V* [id number] Date/Time of Exam: 12/31/2023 11:53 AM Reason For Exam: injury Comparison 10/11/2022. No acute fracture or dislocation. Moderately severe degenerative thinning of the medial joint compart ment. No joint effusion. Mild spurring of the posterior patella. IMPRESSION: 1. No acute fracture or dislocation. 2. Moderately severe degenerative narrowing of the medial joint compartment. Kellgren-Mina grade of 3.
[2023-12-31 11:10] VITALS: BP 108/65; PULSE 91; RESP 16; TEMP 36.7; O2SAT 95; BMI 40.8
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
[2023-12-31 13:28] VITALS: PULSE 92; RESP 18; O2SAT 97
== END 2023-12-31 13:29 | disposition home or self-care (01) ==
PROVIDERS: Emergency Provider Physician Assistant; PCP Physician Assistant
DX: S80.02XA Contusion of left knee, initial encounter (principal); Z79.82 Long term (current) use of aspirin; Z87.891 Personal history of nicotine dependence; I10 Essential (primary) hypertension; J44.9 Chronic obstructive pulmonary disease, unspecified; Z86.73 Personal history of transient ischemic attack (TIA), and cerebral infarction without residual deficits; V27.09XA Other motorcycle driver injured in collision with fixed or stationary object in nontraffic accident, initial encounter
CPT/HCPCS: 73562; 99283

== ENCOUNTER 2024-04-15 12:06 | Outpatient (RCR) | payer MEDICARE, SELFPAY | END 2024-05-03 23:59 | disposition home or self-care (01) | LOC: SPT 12:06 | PROVIDERS: PCP Physician Assistant; Visit Provider Physician Assistant | DX: M25.562 Pain in left knee (principal) | CPT/HCPCS: 97110; 97161 ==

== ENCOUNTER 2024-05-04 06:00 | Outpatient (RCR) | payer MEDICARE, SELFPAY | END 2024-06-03 23:59 | disposition home or self-care (01) | LOC: SPT 06:00 | PROVIDERS: PCP Physician Assistant; Visit Provider Physician Assistant | DX: M25.562 Pain in left knee (principal) | CPT/HCPCS: 97110 ==

== ENCOUNTER 2024-06-22 11:54 | Outpatient (CLI) | payer MEDICARE, MEDICAID, SELFPAY | END 2024-06-22 11:55 | disposition home or self-care (01) | LOC: RAD 06-23 22:40 | PROVIDERS: PCP Physician Assistant; Visit Provider Physician Assistant | DX: I10 Essential (primary) hypertension (principal); I45.10 Unspecified right bundle-branch block; E66.9 Obesity, unspecified; Z68.41 Body mass index [BMI] 40.0-44.9, adult; Z87.891 Personal history of nicotine dependence; G45.9 Transient cerebral ischemic attack, unspecified; R56.9 Unspecified convulsions | CPT/HCPCS: 99214 ==

== ENCOUNTER 2024-08-12 10:50 | Outpatient (CLI) | payer MEDICARE, MEDICAID, SELFPAY | END 2024-08-12 10:51 | disposition home or self-care (01) | LOC: RT 10:51 | PROVIDERS: PCP Physician Assistant; Visit Provider Internal Medicine | DX: R06.02 Shortness of breath (principal) | CPT/HCPCS: 94010; 94726; 94729 ==

== ENCOUNTER 2024-08-19 11:59 | Outpatient (CLI) | payer MEDICARE, MEDICAID, SELFPAY ==
--- NOTE | 2024-08-19 12:00 | USCV_ITS ---
Melvin Leiva Age: 69 Gender: M : 1955 Exam Date: 08/19/2024 12:15 Ordering Phys: Gene Cespedes M.D ([email or web address]) Technologist: ESTHER Exam Location: [facility] [place] Indication: SHORTNESS OF BREATH BP: 124 / 70 HR: 70 Rhythm: Sinus Technical Quality: Adequate MEASUREMENTS (Male / Female) Normal Values 2D ECHO LV Diastolic Diameter PLAX 5.9 cm 4.2 - 5.9 / 3.9 - 5.3 cm IVS Diastolic Thickness 1.1 cm 0.6 - 1.0 / 0.6 - 0.9 cm IVS Systolic Thickness 1.8 cm LVPW Diastolic Thickness 2.0 cm 0.6 - 1.0 / 0.6 - 0.9 cm LVPW Systolic Thickness 2.6 cm LVOT Diameter 2.0 cm LV Ejection Fraction 2D Teich 33.0 % LV Ejection Fraction MOD 4C 45.0 % LV Ejection Fraction MOD 2C 54.6 % LV Ejection Fraction 2C AL 54.1 % LA Diameter 2.6 cm RA Systolic Volume 4C AL 20.4 ml RA Systolic Volume 4C MOD 20.4 ml Aorta at Sinotubular Diameter 2.6 cm IVC Diameter 1.7 cm M-MODE LA Ao Ratio MM 1.2 AV Cusp Separation MM 2.1 cm DOPPLER AV Peak Velocity 114.0 cm/s LVOT Peak Velocity 86.0 cm/s AV Area Cont Eq vti 2.1 cm squared AV Area Cont Eq pk 2.5 cm squared MV Peak Velocity 96.0 cm/s MV Area PHT 3.2 cm squared Mitral E to A Ratio 0.6 TR Peak Velocity 164.0 cm/s TR Peak Gradient 10.8 mmHg TR Mean Velocity 139.0 cm/s TR Mean Gradient 8.0 mmHg TR Velocity Time Integral 44.0 cm TV Peak E Velocity 41.0 cm/s Right Atrial Pressure 3.0 mmHg Pulmonary Artery Systolic Pressu 13.8 mmHg PV Peak Velocity 85.0 cm/s RV Ejection Time 0.3 s FINDINGS Left Ventricle Mildly increased left ventricular cavity size. Moderately decreased left ventricular systolic function. Left ventricular ejection fraction is estimated at 45 %. Global left ventricular hypokinesis. Grade I/IV diastolic dysfunction (abnormal relaxation filling pattern), normal to mildly elevated filling pressures. Right Ventricle The right ventricle is normal in size and function. Right Atrium The right atrium is normal in size. Left Atrium The left atrium is normal in size. Mitral Valve Structurally normal mitral valve. No mitral valve stenosis. Trace mitral valve regurgitation. Aortic Valve Mild aortic valve calcification. No aortic valve stenosis. Trace aortic valve regurgitation. Tricuspid Valve Structurally normal tricuspid valve without significant stenosis or regurgitation. Pulmonary artery systolic pressure is normal. Pulmonic Valve Structurally normal pulmonic valve without significant stenosis. There is no pulmonic regurgitation. Pericardium Normal pericardium without effusion. Aorta Normal ascending aorta dimension. IVC The inferior vena cava appears normal. CONCLUSIONS Mildly increased left ventricular cavity size. Moderately decreased left ventricular systolic function. Left ventricular ejection fraction is estimated at 45 %. Global left ventricular hypokinesis. Grade I/IV diastolic dysfunction (abnormal relaxation filling pattern), normal to mildly elevated filling pressures. Mild aortic valve calcification. No aortic valve stenosis. Trace aortic valve regurgitation. There is no pericardial effusion. Pulmonary artery systolic pressure is within normal limits. Right atrial pressure is around 5 mm of mercury. Cookie Jensen MD (Electronically Signed) Final Date: 21 August 2024 20:52 S
== END 2024-08-19 12:00 | disposition home or self-care (01) ==
LOC: RAD 11:59
PROVIDERS: PCP Physician Assistant; Visit Provider Internal Medicine
DX: I50.20 Unspecified systolic (congestive) heart failure (principal); I50.30 Unspecified diastolic (congestive) heart failure; R06.02 Shortness of breath
CPT/HCPCS: 93306

== ENCOUNTER 2024-11-23 21:08 | Inpatient (IN) | payer MEDICARE, MEDICAID, SELFPAY ==
[2024-11-23] VITALS (15 sets, daily range): BP systolic 146–187; BP diastolic 77–99; PULSE 64–88; RESP 13–27; TEMP 36.7; O2SAT 92–97; BMI 32.1
--- NOTE | 2024-11-23 21:15 | W.ED.CHESTPA ---
HPI - Chest Pain General: Chief Complaint: Chest Pain Stated Complaint: cp Time Seen by Provider: 11/23/24 21:10 History of Present Illness: 69-year-old man with a history of obesity, hypertension, COPD, TIA and seizures who presents emergency room with chest pain. This started just prior to arrival at the emergency room. He complains of pain to touch. He says he had a heart attack in the past and they did a cath and he was told that the cath somehow opened the blockage without having to have stents placed. He says symptoms were similar to this and he had tenderness to palpation when that it happened. Related Data Home Medications Medication Instructions Recorded Confirmed albuterol sulfate 90 mcg/actuation 1 puff inhalation Q4H PRN 11/04/19 06/22/24 aerosol inhaler (ProAir HFA) Shortness Of Breath aspirin 81 mg tablet,delayed 81 mg PO DAILY@11/04/19 06/22/24 release diphenhydramine HCl 25 mg capsule 100 mg PO DAILY@0911/04/19 06/22/24 (Allergy Relief (diphenhydramine)) mecobalamin (vitamin B12) 5,000 5,000 mcg PO DAILY@0900 11/04/19 06/22/24 mcg disintegrating tablet calcium 1 tab PO DAILY@0900 11/25/20 06/22/24 L-Lysine 1 tab PO DAILY@12/07/20 06/22/24 Luis's wort 2 tab PO BID@0900,2100 12/07/20 06/22/24 acetaminophen 650 mg 1,300 mg PO PRN 12/07/20 06/22/24 tablet,extended release (Pain Relief (acetaminophen)) divalproex 250 mg tablet,extended 250 mg PO TID@0900,1200,209912/07/20 06/22/24 release 24 hr nitroglycerin 0.4 mg sublingual 0.4 mg sublingual Q5M PRN Chest 12/07/20 06/22/24 tablet Pain cholecalciferol (vitamin D3) 125 125 mcg PO DAILY@0900 02/21/21 06/22/24 mcg (5,000 unit) capsule magnesium oxide 400 mg PO DAILY@0900 02/21/21 06/22/24 levetiracetam 750 mg 750 mg PO BID@0900,2100 04/15/21 06/22/24 tablet,extended release 24 hr multivitamin 1 tab PO DAILY@0900 04/15/21 06/22/24 ascorbic acid (vitamin C) 250 mg 500 mg PO DAILY 02/01/22 06/22/24 chewable tablet carbamazepine 100 mg 100 mg PO BID 02/01/22 06/22/24 capsule,extended release [id number] ipratropium bromide 17 2 inh inhalation BID 02/01/22 06/22/24 mcg/actuation HFA aerosol inhaler (Atrovent HFA) omega-3 fatty acids 1,000 mg 2,000 mg PO DAILY@0900 02/01/22 06/22/24 capsule potassium chloride 10 mEq 10 meq PO DAILY 02/01/22 06/22/24 tablet,extended release(part/cryst) (Klor-Con M) varenicline 1 mg tablet (Chantix) 1 mg PO BID 06/22/24 06/22/24 Previous Rx's Medication Instructions Recorded hydrocodone 5 mg-acetaminophen 325 1 tab PO Q6H PRN pain #10 tabs 04/15/21 mg tablet prochlorperazine maleate 5 mg 5 mg PO Q12H PRN headache #10 tabs 04/15/21 tablet (Compazine) pantoprazole 40 mg tablet,delayed 40 mg PO DAILY #90 tabs 02/01/22 release meloxicam 15 mg tablet See Rx Instructions .Route 10/24/22 .COMPLEX #30 tabs hydrochlorothiazide 25 mg tablet 25 mg PO DAILY@0900 #90 tabs 07/09/23 isosorbide mononitrate 30 mg 15 mg (1/2 x 30 mg) PO DAILY@0900 07/30/23 tablet,extended release 24 hr #90 tabs clopidogrel 75 mg tablet 75 mg PO DAILY@0900 #90 tabs 08/08/23 valsartan 160 mg tablet 160 mg PO BID #180 tabs 08/08/23 hyaluronate sodium, stabilized 60 60 mg (3 mL) intra-articular ONCE 01/06/24 mg/3 mL intra-articular syringe #3 mL (Durolane) Allergies Allergy/AdvReac Type Severity Reaction Status Date / Time metformin Allergy ADR-Nausea Verified 11/23/24 21:14 pollen Allergy Unknown ALGY-Sneezi Uncoded 06/22/24 15:25 ng Review of Systems Narrative: Constitutional symptoms: Negative except as documented in HPI. Skin symptoms: Negative except as documented in HPI. Eye symptoms: Negative except as documented in HPI. ENMT symptoms: Negative except as documented in HPI. Respiratory symptoms: Negative except as documented in HPI. Cardiovascular symptoms: Negative except as documented in HPI. Gastrointestinal symptoms: Negative except as documented in HPI. Genitourinary symptoms: Negative except as documented in HPI. Musculoskeletal symptoms: Negative except as documented in HPI. Neurologic symptoms: Negative except as documented in HPI. Psychiatric symptoms: Negative except as documented in HPI. Endocrine symptoms: Negative except as documented in HPI. PFSH ED PFSH: Medical History Obesity DJD (degenerative joint disease) of knee RBBB Hypertension COPD (chronic obstructive pulmonary disease) GERD (gastroesophageal reflux disease) TIA (transient ischemic attack) Seizure Surgical History History of tonsillectomy and adenoidectomy H/O knee surgery LEFT Family History Father Alzheimer disease Mother COPD (chronic obstructive pulmonary disease) CAD (coronary artery disease) Diabetes Stroke Cancer Hypertension Brother COPD (chronic obstructive pulmonary disease) Sister Stroke Other Glaucoma Social History Smoking and tobacco/nicotine status: former use of tobacco/nicotine Alcohol intake: current Alcohol intake frequency: holidays/special occasions only Substance/Drug Use: never Physical Exam Narrative: EXAM NARRATIVE: General: Alert, no acute distress. Skin: Warm, dry. Head: Normocephalic, atraumatic. Neck: Supple, trachea midline. Eye: Extraocular movements are intact. Ears, nose, mouth and throat: mucosa moist. Cardiovascular: Regular, Normal peripheral perfusion. Respiratory: Lungs are clear to auscultation, respirations are non-labored, breath sounds are equal, Symmetrical chest wall expansion. Tenderness of the left central chest. Gastrointestinal: Soft, Nontender, Non distended Musculoskeletal: Normal ROM, no deformity. Neurological: Alert and oriented, No focal neurological deficit observed. Psychiatric: Cooperative, appropriate mood & affect. Course Vital Signs: Vital signs: Vital Signs Temperature 98.1 F 11/23/24 21:09 Pulse Rate 66 11/23/24 23:10 Respiratory Rate 27 H 11/23/24 23:10 Blood Pressure 169/87 11/23/24 23:00 Pulse Oximetry 96 11/23/24 23:10 Oxygen Delivery Me thod Room Air 11/23/24 21:31 MDM - Chest Pain Medical Decision Making Differential diagnosis for patient with chest pain includes but is not limited to and based on the above HPI, review of systems and physical exam: Pneumonia. unstable angina. angina. Acute coronary syndrome / [place]. Pulmonary embolism. Costochondritis / musculoskeletal. Pleurisy. Pericarditis. Esophageal spasm. Pancreatis. Cholecystitis. Orders placed to evaluate differential diagnosis based on the above differential, HPI and physical exam EKG: Time 2110. Rate 88. Normal sinus rhythm, No ST-T changes, no ectopy, incomplete right bundle branch block. This was reviewed and interpreted by myself the ER physician at 2114. Lab Review: Laboratory results were reviewed and interpreted by myself the emergency room physician. Initial lab work is fairly unremarkable. No leukocytosis. No anemia. No renal failure. Glucose is slightly elevated at 170. I reviewed the patient's medical record. HEART Pathway [email or web address]24 All calculations should be rechecked by clinician prior to use RESULT SUMMARY: 5 points HEART Pathway Score High risk 12-65% 30-day MACE Admit to hospital or observation. Further testing indicated. INPUTS: History ?> 1 = Moderately suspicious EKG ?> 0 = Normal Age ?> 2 = >=5 Risk factors ?> 2 = >= risk factors or history of atherosclerotic disease Initial troponin ?> 0 = <=ormal limit Reexamination: Patient remained stable. No increased work of breathing. No altered mental status. No focal motor deficits. Currently no chest pain. Blood pressures improved some. Consultation: I spoke with Dr. Stacy who agrees to admission. Assessment and plan: Chest pain Accelerated hypertension -I discussed the patient with the hospitalist on-call who is admitting the patient. - Discussed findings and plan with patient. Answered any questions. - All laboratory values were reviewed and interpreted personally by myself, the ER physician - All imaging was reviewed and interpreted personally by myself, the ER physician. - Evaluation and treatment of this problem were appropriate in the emergency setting Lab Data 11/23/24 20:56 11/23/24 20:56 Laboratory Results WBC 10.68 10^3/uL (3.29-11.43) 11/23/24 20: RBC 4.97 10^6/uL (3.85-5.65) 11/23/24 20:56 Hgb 15.60 g/dL (11.27-16.99) 11/23/24 20: Hct 45.6 % (37-53) 11/23/24 20: MCV 91.8 fl (82-101) 11/23/24 20: MCH 31.4 pg (27-33) 11/23/24 20: MCHC 34.2 g/dL (30-55) 11/23/24 20: RDW 12.8 % (12.1-15.1) 11/23/24 20: Plt Count 276 10^3/cmm (157-399) 11/23/24 20: MPV 10.1 fL (7.4-10.4) 11/23/24 20: Neut % (Auto) 68.1 % 11/23/24 20: Lymph % (Auto) 17.2 % 11/23/24 20: [place] % (Auto) 8.1 % 11/23/24 20: Eos % (Auto) 5.6 % 11/23/24 20: Baso % (Auto) 0.7 % 11/23/24: Neut # (Auto) 7.26 10^3/uL (1.8-7.7) 11/23/24 20: Lymph # (Auto) 1.8 10^3/uL (0.8-4.8) 11/23/24 20: [place] # (Auto) 0.9 10^3/uL (0.2-0.9) 11/23/24 20:56 Eos # (Auto) 0.6 10^3/uL (0.0-0.8) 11/23/24 20: Baso # (Auto) 0.1 10^3/uL (0.0-0.1) 11/23/24 20:56 Nucleated RBC % (auto) 0 % 11/23/24 20:56 Nucleated RBCs # 0.0 /100WBC 11/23/24 20:56 Sodium 142 mmol/L (136-145) 11/23/24 20:56 Potassium 4.9 mmol/L (3.5-5.1) 11/23/24 20:56 Chloride 103 mmol/L (98-107) 11/23/24 20:56 Carbon Dioxide 27 mmol/L (22-29) 11/23/24 20:56 Anion Gap 16.9 (5-19) 11/23/24 20:56 BUN 15 mg/dL (8-23) 11/23/24 20:56 Creatinine 1.1 mg/dL (0.7-1.2) 11/23/24 20:56 GFR Calculation 66.4 mL/min (90-130) L 11/23/24 20:56 Glucose 170 mg/dL (65-115) H 11/23/24 20:56 Calculated Osmolality 299 mOsm/kg (285-295) H 11/23/24 20:56 Calcium 9.9 mg/dL (8.5-10.5) 11/23/24 20:56 Total Bilirubin 0.2 mg/dL (0.15-1.2) 11/23/24 20:56 AST 18 U/L (0-40) 11/23/24 20:56 ALT 18 U/L (0-41) 11/23/24 20:56 Alkaline Phosphatase 92 U/L (40-130) 11/23/24 20:56 Troponin T Baseline 9 ng/L (0-15) 11/23/24 20:56 NT-Pro-B Natriuret Pep 132 pg/mL (0-125) H 11/23/24 20:56 Total Protein 7.1 g/dL (6.6-8.7) 11/23/24 20:56 Albumin 4.5 g/dL (3.5-5.2) 11/23/24 20:56 Globulin 2.6 g/dL (1.3-4.6) 11/23/24 20:56 All radiology interpretation(s) finalized by discharge Discharge Plan Discharge Patient Disposition: Admitted As Inpatient Admit Provider: Natalia Stacy Clinical Impression: Chest pain, Accelerated hypertension Condition: Stable Coding Level of Care Code ED Health Clinician for Colby Gonzalez
[2024-11-23 21:22] LABS: Basophils # 0.1 10^3/uL (0.0-0.1); Basophils % 0.7 %; Eosinophils # 0.6 10^3/uL (0.0-0.8); Eosinophils % 5.6 %; Hematocrit 45.6 % (37-53); Lymphocytes # 1.8 10^3/uL (0.8-4.8); Lymphocytes % 17.2 %; Mean Corpuscular HGB Conc 34.2 g/dL (30-55); Mean Corpuscular Hemoglobin 31.4 pg (27-33); Mean Corpuscular Volume 91.8 fl (82-101); Mean Platelet Volume 10.1 fL (7.4-10.4); Monocytes # 0.9 10^3/uL (0.2-0.9); Monocytes % 8.1 %; Neutrophils # 7.26 10^3/uL (1.8-7.7); Neutrophils % 68.1 %; Nucleated Red Blood Cells % 0 %; Platelet Count 276 10^3/cmm (157-399); Red Blood Count 4.97 10^6/uL (3.85-5.65); Red Cell Distribution Width 12.8 % (12.1-15.1); White Blood Count 10.68 10^3/uL (3.29-11.43)
[2024-11-23 21:37] LABS: Troponin(5th) Baseline 9 ng/L (0-15)
[2024-11-23 21:53] LABS: Alanine Aminotransferase 18 U/L (0-41); Albumin Level 4.5 g/dL (3.5-5.2); Alkaline Phosphatase 92 U/L (40-130); Anion Gap 16.9 (5-19); Aspartate Amino Transferase 18 U/L (0-40); Blood Urea Nitrogen 15 mg/dL (8-23); Calcium 9.9 mg/dL (8.5-10.5); Carbon Dioxide 27 mmol/L (22-29); Chloride 103 mmol/L (98-107); Creatinine Clr Calc Pharmacy 77.9121; Globulin 2.6 g/dL (1.3-4.6); Glomerular Filtration Rate 66.4 mL/min (90-130); Glucose 170 mg/dL (65-115); NT Pro B Type Natriuretic Pept 132 pg/mL (0-125); Osmolality Calculated 299 mOsm/kg (285-295); Potassium 4.9 mmol/L (3.5-5.1); Sodium 142 mmol/L (136-145); Total Bilirubin 0.2 mg/dL (0.15-1.2); Total Protein 7.1 g/dL (6.6-8.7)
--- NOTE | 2024-11-23 22:41 | PM.HP ---
Providers/Chief Complaint Primary Care Provider: Phoebe Nevarez Chief Complaint: cp History of Present Illness Melvin Leiva is a 69 year old male w/ HTN, COPD, GERD, seizure d/o, active tobacco use d/o, who presents to [facility] on 11/23/2024 for substernal chest pain that began earlier in the evening. The patient states that had non-pleuritic, non-positional chest pain in the middle of his chest, with shortness of breath, wheezing, and a headache that began at 8am. He states that his chest felt as if someone was hitting it or poking it. His girlfriend, Erika, thought that he was having a heart attack so she gave him SL NTG x 1 at 8:03am, but his chest pain remained at 9/10, so his girlfriend called EMS. He states that EMS gave him 4 baby Aspirin x 1 and 4 SL NTG. He states that by the time he arrived in the ED, his chest pain started to decrease. He endorses chills, dizziness, light headedness, . He denies palpitations, diaphoresis, syncope, visual disturbances, n/v, melena, hematochezia, diarrhea, constipation, dysura, hematuria. He endorses a chronic productive cough with yellow sputum, increased urinary urgency/frequency at night. He states that he has 4-5 episodes of nocturia. He is s/p an abnormal nuclear stress test in 2020 and a LHC in 04/2021 for CP, and his LHC did not show significant CAD. He was last seen in the ED in 01/2021 w/ complaints of CP. His ECHO in 08/2024 showed an LVEF of 45% w/ global LV hypokinesis and grade I diastolic dysfxn. In the ED, according to the nurse, EMS documented that he was given 4 SL NTG, but Aspirin administration was not documented. Furthermore, the during his admission, the patient stated that he had taken aspirin 81mg at home today as well as his evening medications. His vital signs were significant for BP of 187/99mmHg and tachypnea of 26. His EKG showed NSR w/ no ST changes and a QTc of 403. Review of Systems Const: Reports: fever(s); Denies: chills or diaphoresis Eyes: Denies: change in vision ENMT: Denies: odynophagia, ear or mastoid pain, ear discharge, nasal discharge or nasal congestion Card: Reports: chest pain and lightheadedness; Denies: palpitations Resp: Reports: dyspnea, productive cough (chronic) and wheezing GI: Denies: abdominal pain, nausea, vomiting, dysphagia or hematochezia : Reports: urinary frequency, urinary urgency and nocturia; Denies: difficulty urinating, dysuria or hematuria Musc: Reports: other (L. knee pain - chronic); Denies: joint pain Skin/Breast: Denies: rash or new lesions Neuro: Reports: headache(s), dizziness and other (no syncope) Psych: Denies: anxiety, depression, suicidal ideation or homicidal ideation Endo: Reports: cold intolerance; Denies: heat intolerance Uday/Lymph: Denies: easy bruising or easy bleeding Medications/Allergies Home Medications Medication Instructions Recorded Confirmed Last Taken Type albuterol sulfate 90 mcg/actuation 1 puff inhalation Q4H PRN 11/04/19 06/22/24 04/15/21 History aerosol inhaler (ProAir HFA) Shortness Of Breath aspirin 81 mg tablet,delayed 81 mg PO DAILY@11/04/19 06/22/24 04/14/21 History release diphenhydramine HCl 25 mg capsule 100 mg PO DAILY@89911/04/19 06/22/24 04/15/21 History (Allergy Relief (diphenhydramine)) mecobalamin (vitamin B12) 5,000 5,000 mcg PO DAILY@89911/04/19 06/22/24 04/15/21 History mcg disintegrating tablet calcium 1 tab PO DAILY@0911/25/20 06/22/24 04/15/21 History L-Lysine 1 tab PO DAILY@12/07/20 06/22/24 04/15/21 History Luis's wort 2 tab PO BID@0900,209912/07/20 06/22/24 04/15/21 History acetaminophen 650 mg 1,300 mg PO PRN 12/07/20 06/22/24 Unknown History tablet,extended release (Pain Relief (acetaminophen)) divalproex 250 mg tablet,extended 250 mg PO TID@0900,1200,2100 12/07/20 06/22/24 04/15/21 History release 24 hr nitroglycerin 0.4 mg sublingual 0.4 mg sublingual Q5M PRN Chest 12/07/20 06/22/24 04/01/21 History tablet Pain cholecalciferol (vitamin D3) 125 125 mcg PO DAILY@0900 02/21/21 06/22/24 04/15/21 History mcg (5,000 unit) capsule magnesium oxide 400 mg PO DAILY@0900 02/21/21 06/22/24 04/15/21 History hydrocodone 5 mg-acetaminophen 325 1 tab PO Q6H PRN pain #10 tabs 04/15/21 06/22/24 Unknown Rx mg tablet levetiracetam 750 mg 750 mg PO BID@0900,2100 04/15/21 06/22/24 04/15/21 History tablet,extended release 24 hr multivitamin 1 tab PO DAILY@0900 04/15/21 06/22/24 04/15/21 History prochlorperazine maleate 5 mg 5 mg PO Q12H PRN headache #10 tabs 04/15/21 06/22/24 Unknown Rx tablet (Compazine) ascorbic acid (vitamin C) 250 mg 500 mg PO DAILY 02/01/22 06/22/24 Unknown History chewable tablet carbamazepine 100 mg 100 mg PO BID 02/01/22 06/22/24 Unknown History capsule,extended release [id number] ipratropium bromide 17 2 inh inhalation BID 02/01/22 06/22/24 Unknown History mcg/actuation HFA aerosol inhaler (Atrovent HFA) omega-3 fatty acids 1,000 mg 2,000 mg PO DAILY@0900 02/01/22 06/22/24 Unknown History capsule pantoprazole 40 mg tablet,delayed 40 mg PO DAILY #90 tabs 02/01/22 06/22/24 Unknown Rx release potassium chloride 10 mEq 10 meq PO DAILY 02/01/22 06/22/24 Unknown History tablet,extended release(part/cryst) (Klor-Con M) meloxicam 15 mg tablet See Rx Instructions .Route 10/24/22 06/22/24 Unknown Rx .COMPLEX #30 tabs hydrochlorothiazide 25 mg tablet 25 mg PO DAILY@0900 #90 tabs 07/09/23 06/22/24 Unknown Rx isosorbide mononitrate 30 mg 15 mg (1/2 x 30 mg) PO DAILY@0900 07/30/23 06/22/24 Unknown Rx tablet,extended release 24 hr #90 tabs clopidogrel 75 mg tablet 75 mg PO DAILY@0900 #90 tabs 08/08/23 06/22/24 Unknown Rx valsartan 160 mg tablet 160 mg PO BID #180 tabs 08/08/23 06/22/24 Unknown Rx hyaluronate sodium, stabilized 60 60 mg (3 mL) intra-articular ONCE 01/06/24 06/22/24 Unknown Rx mg/3 mL intra-articular syringe #3 mL (Durolane) varenicline 1 mg tablet (Chantix) 1 mg PO BID 06/22/24 06/22/24 Unknown History Allergies Allergy/AdvReac Type Severity Reaction Status Date / Time metformin Allergy ADR-Nausea Verified 11/23/24 21:14 pollen Allergy Unknown ALGY-Sneezi Uncoded 06/22/24 15:25 ng PFSH Acute PFSH: Medical History (Updated 11/23/24 @ 23:35 by Natalia Stacy MD) Osteoarthritis of left knee he says he needs to lose 40lbs before he can get L. TKA. Obesity DJD (degenerative joint disease) of knee RBBB Hypertension COPD (chronic obstructive pulmonary disease) GERD (gastroesophageal reflux disease) TIA (transient ischemic attack) Seizure Surgical History (Updated 11/23/24 @ 23:45 by Natalia Stacy MD) H/O eye surgery Left eye surgery due to trauma to the left eye. History of cataract surgery bilateral History of tonsillectomy and adenoidectomy both tonsils removed. Only L. adenoids removed as a child. Family History Father Alzheimer disease Mother COPD (chronic obstructive pulmonary disease) CAD (coronary artery disease) Diabetes Stroke Cancer Hypertension Brother COPD (chronic obstructive pulmonary disease) Sister Stroke Other Glaucoma Social History (Updated 11/23/24 @ 23:40 by Natalia Stacy MD) Smoking and tobacco/nicotine status: current every day tobacco/nicotine user Alcohol intake: current Alcohol intake frequency: few times a month Alcohol use comment: Used to drink Six fifths of vodka, 2.5gals of lan shine, fifth of bourbon Substance/Drug Use: former Former substance use details: heroine, acid, injected liquid crystal as a teen. Marijuana in 30s-40s. Additional social history: smoked 3.5ppd x 8-9yrs. Now smokes 1ppd a week. Vitals/I&O/Wt Last Vital Signs Temp 98.1 F 11/23/24 21:09 Pulse 71 11/23/24 21:31 Resp 15 11/23/24 21:31 BP 155/77 11/23/24 21:31 Pulse Ox 96 11/23/24 21:31 O2 Del Method Room Air 11/23/24 21:31 11/23/24 11/23/24 11/23/24 06:59 14:59 22:59 Intake Total 0 / 0 Balance 0 / 0 Weight last 48 hrs Weight 104.326 kg Physical Exam Const: GENERAL APPEARANCE: cooperative and comfortable ORIENTATION/CONSCIOUSNESS: Yes awake, Yes oriented to person, Yes oriented to place and Yes oriented to time HENMT: HEAD & SCALP: normocephalic and atraumatic NOSE: Normal external nose present EXTERNAL EAR: Yes external ears normal MOUTH: Normal oral and palatal mucosa present THROAT: posterior oropharynx normal Eye: OTHER: PERRL, EOMI, normal conjunctiva b/l Neck/C-Spine: GENERAL: Yes normal visual inspection and Yes trachea midline THYROID: Thyroid normal CAROTIDS: Yes normal carotid upstroke CERVICAL SPINE: Yes cervical ROM normal Lymph: OTHER: no cervical or supraclavicular LAD Resp: OTHER: Decreased breath sounds in the L. lower lung field. no wheezes, rhonchi, or crackles. Cardio: OTHER: RRR, no m/r/g or clicks. 2+ radial and DP pulses. No carotid bruits. He does have tenderness to palpation at the LLSB, xiphoid process, and LUQ of the abomen that is very close to the Xiphoid process. GI: OTHER: BS+, NT, ND, no hepatosplenomegaly. No rebound tenderness, no guarding, no rigidity. Extremity: GENERAL: No clubbing, No cyanosis and No edema Neuro: CRANIAL NERVES: Yes CN normal except as noted SPEECH: speech normal SENSORY EXAM: No sensory level loss detected MOTOR EXAM: 5/5 motor strength present throughout and Motor abnormalities not present Psych: APPEARANCE: Yes grossly normal ATTITUDE: Yes calm and Yes engaged ACTIVITY/MOTOR BEHAVIOR: Yes appropriate eye contact SPEECH: Yes normal speech MOOD & AFFECT: Yes euthymic mood THOUGHT PROCESS: Normal thought process present THOUGHT CONTENT: Yes Normal thought content present ATTENTION/CONCENTRATION: Yes attention grossly intact MEMORY/COGNITION: Yes memory grossly intact Skin: GENERAL SKIN EXAM: no rashes or lesions noted Data 11/24/24 02:33 11/24/24 02:33 A&P Assessment and plan (1) Hypertension: Qualifiers: Hypertension type: essential hypertension Qualified Code(s): I10 - Essential (primary) hypertension (2) Chest pain: (3) GERD (gastroesophageal reflux disease): Qualifiers: Esophagitis presence: esophagitis presence not specified Qualified Code(s): K21.9 - Gastro-esophageal reflux disease without esophagitis (4) COPD (chronic obstructive pulmonary disease): Qualifiers: COPD type: chronic bronchitis Chronic bronchitis type: mucopurulent Qualified Code(s): J41.1 - Mucopurulent chronic bronchitis Plan Melvin Leiva is a 69 year old male w/ HTN, COPD, GERD, seizure d/o, hx of a TIA, & active tobacco use d/o, who presents to [facility] on 11/23/2024 for substernal chest pain that began earlier in the evening. #Chest pain: #HTN - At this time, he has had what appears to be 325mg Aspirin x 2 as well as his home does of 81mg Aspirin x 1. Hold Clopidogrel. - Trend Trop T. F/u A1c, TSH/free T4, lipid panel, UA, UDS, CXR, Influenza/COVID/RSV PCR, ECHO - Ordered losartan & 1L NS at 100cc/hr. Held HCTZ. #COPD - unclear that he is in exacerbation - Ordered scheduled duonebs and prn. He tells me that he uses 4 inhalers, but it does not appear on his EMR. #Seizure d/o - REsumed home meds. #GERD: Given the amount of Aspirin that he received tonight, will give a dose of Pantoprazole IV and resume home meds in the AM. #TIA: Resume daily Aspirin as appropriate. #Active tobacco use d/o: On Varenicline. Order Nicotine patch DVT ppx: Lovenox. Attestations Medical Necessity Statement*: The patient needs to be hospitalized for further evaluation of his chest pain. Time Spent in Patient Care: >70mins was spent on chart review, patient interview, physical exam, lab/image review, plan formulation and coordination of care. Coding Level of Care Code 99850 Diagnoses Essential hypertension I10 Hypertension type: essential hypertension Chest pain R07.9 Gastroesophageal reflux disease, unspecified whether esophagitis present K21.9 Esophagitis presence: esophagitis presence not specified Chronic obstructive pulmonary disease, unspecified COPD type J41.1 COPD type: chronic bronchitis Chronic bronchitis type: mucopurulent
[2024-11-23] MEDS: aspirin 325 mg Tablet PO (23:13)
[2024-11-23 23:28] LABS: Troponin 5 2HR 10.31 ng/L (0-15); Troponin 5 2HR Delta 1.31 ABS# (0-10)
--- NOTE | 2024-11-23 23:55 | ECG_ITS ---
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 Measurements Intervals Cook Rate: 67 P: 30 WV: 144 QRS: -8 QRSD: 112 T: 48 QT: 383 QTc: 405 Interpretive Statements SINUS RHYTHM INCOMPLETE RIGHT BUNDLE BRANCH BLOCK [90+ ms QRS DURATION, TERMINAL R IN V1/V2, 40+ ms S IN I/aVL/V4/V5/V6] MODERATE VOLTAGE CRITERIA FOR LVH, CONSIDER NORMAL VARIANT [MEETS CRITERIA IN ONE OF: R(aVL), S(V1), R(V5), R(V5/V6)+S(V1)] Compared to ECG 09/11/2021 02:10:54 Incomplete right bundle-branch block now present Electronically Signed On 11-28-2024 23:20:21 INSURANCE VERIFICATION CLERK by Gene Cespedes M.D. [email or web address]
[2024-11-24] VITALS (119 sets, daily range): BP systolic 114–179; BP diastolic 55–114; PULSE 52–92; RESP 8–26; TEMP 36.4–37; O2SAT 86–100
--- NOTE | 2024-11-24 | XRR_ITS ---
PROCEDURE INFORMATION: Exam: XR Chest Exam date and time: 11/24/2024 12:25 AM Age: 69 years old Clinical indication: Pain; Chest pressure; Additional info: Chest pain TECHNIQUE: Imaging protocol: Radiologic exam of the chest. Views: 1 view. COMPARISON: CR XR chest 1V portable [id number] 09/11/2021 1:36 AM FINDINGS: Lungs: Diffuse bilateral lung interstitial coarsening, greatest in the bases. Pleural spaces: Unremarkable. No pleural effusion. No pneumothorax. Heart/Mediastinum: Mild cardiomegaly. Bones/joints: Moderate bilateral shoulder degenerative osteoarthritis. No identified acute osseous abnormality. XR/XR chest 1V portable [id number] IMPRESSION: CHF with pulmonary edema.
[2024-11-24] MEDS: pantoprazole 40 mg SDV IVP ×2 (00:04→08:13)
--- NOTE | 2024-11-24 00:25 | USCV_ITS ---
Melvin Leiva Age: 69 Gender: M : 1955 Exam Date: 11/24/2024 00:51 Ordering Phys: Natalia Stacy MD Technologist: ARINA [place] [facility] [place]: chest pain, HTN, COPD, seizure disorder, tobacco addiction BP: 154 / 91 HR: 58 Rhythm: Sinus Technical Quality: Adequate MEASUREMENTS (Male / Female) Normal Values 2D ECHO LV Diastolic Diameter PLAX 3.9 cm 4.2 - 5.9 / 3.9 - 5.3 cm IVS Diastolic Thickness 2.1 cm 0.6 - 1.0 / 0.6 - 0.9 cm IVS Systolic Thickness 1.5 cm LVPW Diastolic Thickness 1.9 cm 0.6 - 1.0 / 0.6 - 0.9 cm LVPW Systolic Thickness 1.9 cm LVOT Diameter 2.3 cm LV Ejection Fraction 2D Teich 53.5 % LV Ejection Fraction MOD 4C 65.0 % LV Ejection Fraction MOD 2C 41.1 % LV Ejection Fraction 2C AL 42.6 % LA Diameter 2.7 cm Aorta at Sinotubular Diameter 3.7 cm IVC Diameter 1.9 cm M-MODE LA Ao Ratio MM 1.3 AV Cusp Separation MM 2.0 cm DOPPLER AV Peak Velocity 107.0 cm/s LVOT Peak Velocity 87.0 cm/s AV Area Cont Eq vti 3.5 cm squared AV Area Cont Eq pk 3.5 cm squared MV Peak Velocity 110.0 cm/s MV Area PHT 4.7 cm squared Mitral E to A Ratio 0.9 TR Peak Velocity 243.0 cm/s TR Peak Gradient 23.6 mmHg TV Peak E Velocity 51.0 cm/s PV Peak Velocity 89.0 cm/s FINDINGS Left Ventricle Normal left ventricular size, systolic function and wall thickness, with no regional wall motion abnormalities. Left ventricular ejection fraction is estimated at 60 %. Grade I/IV diastolic dysfunction (abnormal relaxation filling pattern), normal to mildly elevated filling pressures. Right Ventricle The right ventricle is normal in size and function. Right Atrium The right atrium is normal in size. Left Atrium The left atrium is normal in size. Mitral Valve Structurally normal mitral valve without significant stenosis or prolapse. There is no mitral regurgitation. Aortic Valve Moderate aortic valve calcification. No aortic valve stenosis. Trace aortic valve regurgitation. Tricuspid Valve Structurally normal tricuspid valve without significant stenosis or regurgitation. Pulmonary artery systolic pressure is normal. Pulmonic Valve Structurally normal pulmonic valve without significant stenosis. There is no pulmonic regurgitation. Pericardium Normal pericardium without effusion. Aorta Normal ascending aorta dimension. IVC The inferior vena cava appears normal. CONCLUSIONS Normal left ventricular size, systolic function and wall thickness, with no regional wall motion abnormalities. Left ventricular ejection fraction is estimated at 60 %. Grade I/IV diastolic dysfunction (abnormal relaxation filling pattern), normal to mildly elevated filling pressures. No significant valve abnormalities. There is no pericardial effusion. Right atrial pressure is around 5 mm of mercury. Cookie Jensen MD (Electronically Signed) Final Date: 25 November 2024 19:42 S
[2024-11-24] MEDS: sodium chloride 0.9% 1,000 ML 100 ML IV (00:33)
[2024-11-24 00:45] LABS: Bilirubin Urine Negative (Negative); Blood Urine Negative (Negative); Glucose Urine UA Negative (Normal); Ketones Urine Negative (Negative); Leukocyte Esterase Urine Negative (Negative); Nitrate Urine Negative (Negative); Protein Urine Negative (Negative); Specific Gravity, Urine 1.021 (1.005-1.030); Urine Appearance Clear (CLEAR); Urine Color Yellow (Yellow); Urobilinogen Urine 0.2 mg/dL (Negative)
[2024-11-24 00:47] LABS: Add Urine Microscopic? YES; Bacteria Urine None Seen /hpf; Hyaline Casts Urine 2.46 /lpf; RBC Urine 0-2 /hpf (0-2); Squamous Epithelial Cell Urine 0-5 /hpf (0-5); WBC Urine 0-5 /hpf (0-5)
[2024-11-24 00:52] LABS: Amphetamines Screen Urine Negative (Negative); Barbiturates Screen Urine Negative (Negative); Benzodiazepines Screen Urine Negative (Negative); Cocaine Screen Urine Negative (Negative); Opiate Screen Urine Negative (Negative); PCP Screen Urine Negative (Negative); THC Screen Urine Negative (Negative)
[2024-11-24 01:14] LABS: Covid PCR NEGATIVE (Negative); Influenza A NEGATIVE (Negative); Influenza B NEGATIVE (Negative); Respiratory Syncytial Virus Ce NEGATIVE (Negative)
[2024-11-24 02:38] LABS: Basophils # 0.1 10^3/uL (0.0-0.1); Basophils % 0.8 %; Eosinophils # 0.7 10^3/uL (0.0-0.8); Eosinophils % 7.7 %; Hematocrit 43.2 % (37-53); Lymphocytes # 2.1 10^3/uL (0.8-4.8); Lymphocytes % 23.9 %; Mean Corpuscular Hemoglobin 31.7 pg (27-33); Mean Corpuscular Volume 93.3 fl (82-101); Mean Platelet Volume 9.4 fL (7.4-10.4); Monocytes # 0.9 10^3/uL (0.2-0.9); Monocytes % 10.2 %; Neutrophils # 4.89 10^3/uL (1.8-7.7); Neutrophils % 57.2 %; Nucleated Red Blood Cells % 0 %; Platelet Count 251 10^3/cmm (157-399); Red Blood Count 4.63 10^6/uL (3.85-5.65); Red Cell Distribution Width 12.8 % (12.1-15.1); White Blood Count 8.56 10^3/uL (3.29-11.43)
[2024-11-24] MEDS: ipratropium-albuterol 3 mL Neb INHALATION ×4 (02:47→20:14)
[2024-11-24 02:52] LABS: Estmated Average Glucose 134; Hemoglobin A1C 6.3 % (4.0-6.0); Partial Thromboplastin Time 25.4 SECONDS (23.9-36.7)
[2024-11-24 02:57] LABS: Troponin 5 6HR 9.26 ng/L (0-15); Troponin 5 6HR Delta 0.26 ng/L (0-12)
[2024-11-24 02:58] LABS: Chol HDL Ratio 4.94 mg/dL (1.0-5.00); Cholesterol 178 mg/dL (0-200); HDL Cholesterol 36 mg/dL (60-100); LDL Cholesterol Calculated 87 mg/dL (50-129); LDL HDL Ratio 2.42 RATIO (0.00-3.22); Triglycerides 275 mg/dL (0-150)
[2024-11-24 02:59] LABS: Alanine Aminotransferase 18 U/L (0-41); Albumin Level 4.1 g/dL (3.5-5.2); Alkaline Phosphatase 87 U/L (40-130); Aspartate Amino Transferase 16 U/L (0-40); Blood Urea Nitrogen 16 mg/dL (8-23); Calcium 9.2 mg/dL (8.5-10.5); Carbon Dioxide 25 mmol/L (22-29); Chloride 103 mmol/L (98-107); Creatinine Clr Calc Pharmacy 85.7033; Globulin 2.2 g/dL (1.3-4.6); Glomerular Filtration Rate 74.1 mL/min (90-130); Glucose 129 mg/dL (65-115); Magnesium 2.1 mg/dL (1.7-2.3); Osmolality Calculated 295 mOsm/kg (285-295); Phosphorus 4.2 mg/dL (2.5-4.5); Sodium 141 mmol/L (136-145); Total Bilirubin 0.2 mg/dL (0.15-1.2); Total Protein 6.3 g/dL (6.6-8.7)
--- NOTE | 2024-11-24 10:15 | PC.PHAR ---
Pt unable to verify his medications. Left 2 messages with life partner with no return call, yet. Verified pt medications with [facility] pharmacy.
[2024-11-24] MEDS: losartan 50 mg Tablet 100 MG PO (11:02)
[2024-11-24] MEDS: carBAMazepine XR (12 HR) 100 mg Tablet PO ×2 (11:02→17:14)
--- NOTE | 2024-11-24 11:09 | PC.NURSE ---
PATIENT SPILLED LIQUID KEPPRA ON HIMSELF, WASTED MEDICATION, REORDERED FOR ONE TIME DOSE KEPPRA 750MG PO ONCE.
[2024-11-24] MEDS: levETIRAcetam 1,000 mg/10 mL UDC 750 MG PO (11:34)
[2024-11-24] MEDS: nicotine 7 mg Patch 1 PATCH TRANSDERMA (11:34)
--- NOTE | 2024-11-24 15:39 | PC.NURSE ---
This nurse assumed care of pt at 1530.
--- NOTE | 2024-11-24 16:33 | ECG_ITS ---
[facility] Test Date: 2024-11-25 Pat Name: Melvin Leiva Department: Room: 253 Gender: Male [employer]: : 1955 Requested By: Kika Mahan Order Number: [id number] Renzo MD: WENCESLAO MARCELO Interpretive Statements Lung unchanged pre/post procedure; Intraprocedure shortess of breath; Symptoms resoled by discharge [email or web address] [employer] [id number]
--- NOTE | 2024-11-24 16:33 | NMCV_ITS ---
NM vicenta perf SPECT r/s* [id number] Melvin Leiva Age: 69 Gender: M : 1955 Exam Date: 11/25/2024 06:42 Ordering Phys: Kika Mahan MD Technologist: ERNESTINE Delcid Exam Location: [facility] Indications: cp STRESS TEST [facility] IMAGE PROTOCOL Rest/Stress 1 Lexiscan Day Radiopharmaceutical Dose (mCi) Administration Site Administered by Rest: Tc-99m 11 IV ERNESTINE Delcid Sestamibi Stress:Tc-99m 33 IV ERNESTINE Brewster Sestamibi Rest: 25-Nov-2024 60 Discovery 630 Stress: 25-Nov-2024 30 Discovery 630 0.4mg Lexiscan. Images obtained in supine and prone position. SPECT RESULTS Technical Quality: Good Raw Data Analysis: Normal Image Corrections: No attenuation or motion correction applied Summed Stress Score: 7 Summed Rest Score: 7 Summed Difference Score: 2 PERFUSION FINDINGS Large area of patchy decreased tracer uptake noted in basal to distal inferior wall on the rest images which showed moderate to severe reversibility suggestive of old myocardial infarction surrounded by moderate area of moderate to severe sharona-infarct ischemia. FUNCTIONAL RESULTS (calculated via Gated SPECT) Stress Image LV EF (%): 55 Stress EDV (mL):134 TID: 0.96 Stress ESV (mL):60 FUNCTIONAL FINDINGS: There appeared to be inferior wall hypokinesis. IMPRESSIONS Large area of old myocardial infarction surrounded by medium sized area of moderate to severe reversibility suggestive of sharona-infarct ischemia noted in RCA territory. This is abnormal stress test, EKG segment will be documented separately. Cookie Jensen MD (Electronically Signed) Final Date: 25 November 2024 09:39 S
--- NOTE | 2024-11-24 16:52 | PM.PN ---
Subjective Subjective: Overnight labs and H&P reviewed. Patient states he is continuing to have some chest pain however states this is related to excessive bouts of coughing. Several of his family members have been sick with flulike symptoms. Patient tested negative on the respiratory viral panel yesterday for COVID flu and RSV. Medications: Reviewed: Yes Vitals/I&O/Wt Last Vital Signs Temp 97.5 F L 11/24/24 15:52 Pulse 59 L 11/24/24 15:52 Resp 18 11/24/24 15:52 BP 163/90 11/24/24 15:52 Pulse Ox 95 11/24/24 15:52 O2 Del Method Room Air 11/24/24 15:52 11/24/24 11/24/24 11/24/24 06:59 14:59 22:59 Intake Total 1000 / 1000 Output Total 700 / 700 Balance 1000 / 1000 -700 / 300 Weight last 48 hrs Weight 104.326 kg Physical Exam Narrative: General: No acute distress, AO x3 HEENT: PERRLA, pupils bilaterally equal and reactive, pallors not present Chest: Normal vesicular breath sounds, no added sounds, equal good air entry bilaterally CVS: S1-S2 regular, no murmurs, no tachycardia, no gallops, no rubs Abdomen: Soft, nontender, no organomegaly, bowel sounds present Neuro: No focal deficits, no facial deformity, AO x3, power 5/5 in all limbs Data 11/24/24 02:33 11/24/24 02:33 A&P Assessment and plan (1) Hypertension: Qualifiers: Hypertension type: essential hypertension Qualified Code(s): I10 - Essential (primary) hypertension (2) Chest pain: (3) GERD (gastroesophageal reflux disease): Qualifiers: Esophagitis presence: esophagitis presence not specified Qualified Code(s): K21.9 - Gastro-esophageal reflux disease without esophagitis (4) COPD (chronic obstructive pulmonary disease): Qualifiers: COPD type: chronic bronchitis Chronic bronchitis type: mucopurulent Qualified Code(s): J41.1 - Mucopurulent chronic bronchitis Plan Melvin Leiva is a 69 year old male w/ HTN, COPD, GERD, seizure d/o, hx of a TIA, & active tobacco use d/o, who presents to [facility] on 11/23/2024 for substernal chest pain that began earlier in the evening. #Chest pain: #HTN - At this time, he has had what appears to be 325mg Aspirin x 2 as well as his home does of 81mg Aspirin x 1. Hold Clopidogrel. - Trend Trop T. F/u A1c, TSH/free T4, lipid panel, UA, UDS, CXR, Influenza/COVID/RSV PCR, ECHO - Ordered losartan & 1L NS at 100cc/hr. Held HCTZ. #COPD - unclear that he is in exacerbation - Ordered scheduled duonebs and prn. He tells me that he uses 4 inhalers, but it does not appear on his EMR. #Seizure d/o - REsumed home meds. #GERD: Given the amount of Aspirin that he received tonight, will give a dose of Pantoprazole IV and resume home meds in the AM. #TIA: Resume daily Aspirin as appropriate. #Active tobacco use d/o: On Varenicline. Order Nicotine patch DVT ppx: Lovenox. November 24, 2024 Denies any cardiac chest pain today. Complains of some musculoskeletal discomfort with bouts of coughing. Added Tessalon Perles as needed. Resume home dose of aspirin atorvastatin and Plavix. HbA1c well-controlled at 6.3. Patient carries a history of COPD, is an active smoker. Chest is clear to auscultation bilaterally. Echocardiogram has been taken, results are currently pending. Systolic blood pressure ranging 1 50-1 60. Resume him home dose of Imdur. Continue hydralazine 10 mg IV every 4 hours as needed. Plan for stress test tomorrow morning. Attestations Medical Necessity Statement*: stress test tomorrow Coding Level of Care Code Acute Code for Chg Fwd Moderate MDM includes number and complexity of problems actively addressed during encounter, amount and/or complexity of data reviewed/ordered and described risk of complication, morbidity or mortality of management as documented Diagnoses Essential hypertension I10 Hypertension type: essential hypertension Chest pain R07.9 Gastroesophageal reflux disease, unspecified whether esophagitis present K21.9 Esophagitis presence: esophagitis presence not specified Chronic obstructive pulmonary disease, unspecified COPD type J41.1 COPD type: chronic bronchitis Chronic bronchitis type: mucopurulent
[2024-11-24 17:00] LABS: Glucose Point of Care 103 mg/dL (70-110)
[2024-11-24 19:51] LABS: Glucose Point of Care 150 mg/dL (70-110)
[2024-11-24] MEDS: levETIRAcetam 500 mg Tablet 750 MG PO (20:42)
[2024-11-24] MEDS: divalproex ER 250 mg Tablet (24H) PO (20:42)
[2024-11-24] MEDS: insulin lispro 100 unit/1 mL SUBCUT (20:43)
[2024-11-24] MEDS: enoxaparin 40 mg/0.4 mL Syringe SUBCUT (20:43)
[2024-11-24] MEDS: sennosides 8.6 mg Tablet 17.2 MG PO (20:43)
--- NOTE | 2024-11-24 22:28 | ECG_ITS ---
[facility] Test Date: 2024-11-24 Pat Name: Melvin Leiva Department: Room: 253 Gender: Male Sample Wrapper: : 1955 Requested By: Natalia Stacy Order Number: [id number] Renzo MD: Gene Cespedes M.D. Measurements Intervals [place] Rate: 77 P: 37 CO: 157 QRS: -27 QRSD: 118 T: 35 QT: 378 QTc: 428 Interpretive Statements SINUS RHYTHM WITH OCCASIONAL VENTRICULAR PREMATURE COMPLEXES BORDERLINE LEFT AXIS DEVIATION [QRS AXIS < -20] MODERATE INTRAVENTRICULAR CONDUCTION DELAY [110+ ms QRS DURATION] VOLTAGE CRITERIA FOR LVH [MEETS CRITERIA IN ONE OF: R(aVL), S(V1), R(V5), R(V5/V6)+S(V1)] Compared to ECG 11/23/2024 23:55:40 Ventricular premature complex(es) now present Intraventricular conduction delay now present Incomplete right bundle-branch block no longer present Electronically Signed On 11-28-2024 23:16:05 BUTTER PRINTER by Gene Cespedes M.D. [email or web address]
[2024-11-24] MEDS: HYDROcodone-acetaminophen 5-325 mg Tablet 1 TAB PO (22:41)
[2024-11-25] VITALS (18 sets, daily range): BP systolic 126–159; BP diastolic 62–86; PULSE 71–84; RESP 15–24; TEMP 36.3–36.6; O2SAT 93–98
[2024-11-25] MEDS: ipratropium-albuterol 3 mL Neb INHALATION ×4 (03:12→20:08)
[2024-11-25] MEDS: pantoprazole 40 mg SDV IVP (06:01)
[2024-11-25 06:02] LABS: Glucose Point of Care 134 mg/dL (70-110)
[2024-11-25] MEDS: regadenoson 0.4 Mg/5 ml Syringe IVP (07:14)
[2024-11-25] MEDS: losartan 50 mg Tablet 100 MG PO (08:39)
[2024-11-25] MEDS: aspirin 81 mg EC Tablet PO (08:39)
[2024-11-25] MEDS: atorvastatin 40 mg Tablet PO (08:39)
[2024-11-25] MEDS: isosorbide mononitrate ER 30 mg Tablet 15 MG PO ×2 (08:39→14:48)
[2024-11-25] MEDS: nicotine 7 mg Patch 1 PATCH TRANSDERMA (08:39)
[2024-11-25] MEDS: clopidogrel 75 mg Tablet PO (08:39)
[2024-11-25] MEDS: carBAMazepine XR (12 HR) 100 mg Tablet PO ×2 (08:40→16:58)
[2024-11-25] MEDS: levETIRAcetam 500 mg Tablet 750 MG PO ×2 (08:40→20:44)
[2024-11-25] MEDS: divalproex ER 250 mg Tablet (24H) PO ×3 (08:42→21:38)
[2024-11-25 11:05] LABS: Glucose Point of Care 129 mg/dL (70-110)
--- NOTE | 2024-11-25 13:51 | P.PN_ITS ---
Subjective 2 Subjective: Patient had episode of chest pain at around midnight overnight. It is currently since resolved. Underwent stress test earlier this morning. Medications: Reviewed: Yes Vitals/I&O/Wt Last Vital Signs Temp 97.5 F L 11/25/24 12:00 Pulse 83 11/25/24 12:00 Resp 20 H 11/25/24 12:00 BP 139/85 11/25/24 12:00 Pulse Ox 94 11/25/24 12:00 O2 Del Method Room Air 11/25/24 12:00 11/24/24 11/25/24 11/25/24 22:59 06:59 14:59 Intake Total 720 / 1720 480 / 2200 720 / 720 Output Total 700 / 700 Balance 20 / 1020 480 / 1500 720 / 720 Weight last 48 hrs Weight 104.553 kg Weight 104.326 kg Physical Exam 2 Narrative: General: No acute distress, AO x3 HEENT: PERRLA, pupils bilaterally equal and reactive, pallors not present Chest: Normal vesicular breath sounds, no added sounds, equal good air entry bilaterally CVS: S1-S2 regular, no murmurs, no tachycardia, no gallops, no rubs Abdomen: Soft, nontender, no organomegaly, bowel sounds present Neuro: No focal deficits, no facial deformity, AO x3, power 5/5 in all limbs Data 11/24/24 02:33 11/24/24 02:33 A&P Assessment and plan (1) Hypertension: Qualifiers: Hypertension type: essential hypertension Qualified Code(s): I10 - Essential (primary) hypertension (2) Chest pain: (3) GERD (gastroesophageal reflux disease): Qualifiers: Esophagitis presence: esophagitis presence not specified Qualified Code(s): K21.9 - Gastro-esophageal reflux disease without esophagitis (4) COPD (chronic obstructive pulmonary disease): Qualifiers: COPD type: chronic bronchitis Chronic bronchitis type: mucopurulent Qualified Code(s): J41.1 - Mucopurulent chronic bronchitis Plan Melvin Leiva is a 69 year old male w/ HTN, COPD, GERD, seizure d/o, hx of a TIA, & active tobacco use d/o, who presents to [facility] on 11/23/2024 for substernal chest pain that began earlier in the evening. #Chest pain: #HTN - At this time, he has had what appears to be 325mg Aspirin x 2 as well as his home does of 81mg Aspirin x 1. Hold Clopidogrel. - Trend Trop T. F/u A1c, TSH/free T4, lipid panel, UA, UDS, CXR, Influenza/COVID/RSV PCR, ECHO - Ordered losartan & 1L NS at 100cc/hr. Held HCTZ. #COPD - unclear that he is in exacerbation - Ordered scheduled duonebs and prn. He tells me that he uses 4 inhalers, but it does not appear on his EMR. #Seizure d/o - REsumed home meds. #GERD: Given the amount of Aspirin that he received tonight, will give a dose of Pantoprazole IV and resume home meds in the AM. #TIA: Resume daily Aspirin as appropriate. #Active tobacco use d/o: On Varenicline. Order Nicotine patch DVT ppx: Lovenox. November 24, 2024 Denies any cardiac chest pain today. Complains of some musculoskeletal discomfort with bouts of coughing. Added Tessalon Perles as needed. Resume home dose of aspirin atorvastatin and Plavix. HbA1c well-controlled at 6.3. Patient carries a history of COPD, is an active smoker. Chest is clear to auscultation bilaterally. Echocardiogram has been taken, results are currently pending. Systolic blood pressure ranging 1 50-1 60. Resume him home dose of Imdur. Continue hydralazine 10 mg IV every 4 hours as needed. Plan for stress test tomorrow morning. November 25, 2024 underwent stress today which showed medium sized area of moderate to severe reversibility suggestive of sharona-infarct ischemia noted in RCA territory. This is abnormal stress test,. Patient had 1 episode of chest pain overnight located on the left side. D-dimer was negative. Given the abnormal stress test, consult with cardiology to assess for possibility of angiogram. Continue aspirin Plavix atorvastatin beta-blockers and lisinopril in the interim. Increase Imdur to 30 mg daily. Attestations 2 Medical Necessity Statement*: cardiology consult, will likely need angiogram, awaiting assessment . Change to inpatient admission Coding Level of Care Code Acute Code for g Fwd Diagnoses Essential hypertension I10 Hypertension type: essential hypertension Chest pain R07.9 Gastroesophageal reflux disease, unspecified whether esophagitis present K21.9 Esophagitis presence: esophagitis presence not specified Chronic obstructive pulmonary disease, unspecified COPD type J41.1 COPD type: chronic bronchitis Chronic bronchitis type: mucopurulent
[2024-11-25 16:02] LABS: Glucose Point of Care 139 mg/dL (70-110)
[2024-11-25] MEDS: acetaminophen 325 mg Tablet 650 MG PO (16:58)
--- NOTE | 2024-11-25 16:58 | P.CONIM_ITS ---
<Statement entered by Gene Cespedes M.D - 11/25/24 23:08> Patient was evaluated and cared for in conjunction with an advanced practice practitioner. I personally examined the patient and reviewed the chart and all pertinent data including imaging, telemetry, and laboratory results. I discussed the patient in detail with the advanced practice practitioner. Please see their note for complete consult note, results and agreed upon plan of care for the patient. Patient with no prior significant cardiac history presented with chest pain. Troponins did not trend up significantly. Stress test was performed that was abnormal. GENERAL: Patient is alert and oriented HEART: Regular S1 and S2 LUNGS: Clear to auscultation bilaterally EXTREMITIES: Lower extremities with 1+ edema 1) Worsening angina 2) Abnormal stress test Patient has presented with chest pain and has abnormal stress test. Plan for coronary angiogram with possible percutaneous coronary intervention NPO past midnight. Risks and benefits of the procedure discussed with the patient. ECHO performed and shows normal LV function Thank you for involving us with care of this patient. We will continue to follow. Please call with questions. Providers/Reason For Consult 2 Consulting Physician/Specialty*: Dr Cespedes, cardiology Reason for Consult*: Chest pain, abnormal stress test Requesting Physician: Dr Mahan Attending Physician: Kika Mahan MD Primary Care Provider: Phoebe Nevarez History of Present Illness History of Present Illness Melvin Leiva is a 69 year old male with past medical history of right bundle branch block, smoking, hypertension, COPD, obesity, TIA and seizures. He presented to the emergency room 2 days ago with chest pain, beginning while at rest around 8 AM until he arrived to the emergency room. It was located in the center of the chest without radiation, described as heaviness or pressure. Troponin 9-> 10 -> 9. EKG showed sinus rhythm, incomplete right bundle branch block, no ischemic ST or T wave changes. He also had a similar episode of chest pain last night around 1030 lasting around 30 minutes to 1 hour which was after his stress test, EKG at that time showed sinus rhythm with occasional PVCs. Echocardiogram is completed and is pending read. Lexiscan stress test yesterday showed large area of old [place] in the basal to distal inferior wall with a medium sized area of moderate to severe reversibility suggesting RCA territory ischemia. Previous echocardiogram in August 2024 showed LVEF 45%, mildly increased LV size, global LV hypokinesis, grade 1 diastolic dysfunction. No significant valvular abnormalities. Home medications include aspirin, atorvastatin 20 mg daily Plavix, isosorbide mononitrate, fish oil, valsartan 160 mg twice a day. Lipid panel yesterday: Triglycerides 275, total cholesterol 178, LDL-C 87, HDL 36. Hemoglobin A1c was 6.3%. He has some sick contacts at home with flulike symptoms, viral panel yesterday negative for COVID, influenza and RSV. Nonetheless he is in droplet isolation. Review of Systems 2 Const: Denies: fever(s), chills, change in weight, fatigue or diaphoresis Eyes: Denies: change in vision ENMT: Denies: epistaxis Card: Denies: chest pain, palpitations, irregular heart rhythm, edema, syncope, pre-syncope, dyspnea on exertion, orthopnea or leg pain with exertion Resp: Denies: dyspnea, productive cough or wheezing GI: Denies: nausea, vomiting, hematemesis, hematochezia or melena : Denies: hematuria Musc: Denies: extremity swelling Uday/Lymph: Denies: easy bruising or easy bleeding Medications/Allergies Home Medications Medication Instructions Recorded Confirmed Last Taken Type aspirin 81 mg tablet,delayed 81 mg PO DAILY@11/04/19 11/24/24 04/14/21 History release diphenhydramine HCl 25 mg capsule 100 mg PO DAILY@0911/04/19 11/24/24 04/15/21 History (Allergy Relief (diphenhydramine)) mecobalamin (vitamin B12) 5,000 5,000 mcg PO DAILY@0911/04/19 11/24/24 04/15/21 History mcg disintegrating tablet acetaminophen 650 mg 1,300 mg PO BID PRN arthritis pain 12/07/20 11/24/24 Unknown History tablet,extended release (Pain Relief (acetaminophen)) divalproex 250 mg tablet,extended 250 mg PO TID@0900,1200,2100 12/07/20 11/24/24 04/15/21 History release 24 hr nitroglycerin 0.4 mg sublingual 0.4 mg sublingual Q5M PRN Chest 12/07/20 11/24/24 04/01/21 History tablet Pain cholecalciferol (vitamin D3) 125 125 mcg PO DAILY@0900 02/21/21 11/24/24 04/15/21 History mcg (5,000 unit) capsule magnesium oxide 400 mg PO DAILY@0900 02/21/21 11/24/24 04/15/21 History levetiracetam 750 mg 750 mg PO BID@0900,2100 04/15/21 11/24/24 04/15/21 History tablet,extended release 24 hr multivitamin 1 tab PO DAILY@0900 04/15/21 11/24/24 04/15/21 History ascorbic acid (vitamin C) 250 mg 500 mg PO DAILY 02/01/22 11/24/24 Unknown History chewable tablet carbamazepine 100 mg 100 mg PO BID 02/01/22 11/24/24 Unknown History capsule,extended release [id number] omega-3 fatty acids 1,000 mg 2,000 mg PO DAILY@0900 02/01/22 11/24/24 Unknown History capsule pantoprazole 40 mg tablet,delayed 40 mg PO DAILY #90 tabs 02/01/22 11/24/24 Unknown Rx release potassium chloride 10 mEq 10 meq PO DAILY 02/01/22 11/24/24 Unknown History tablet,extended release(part/cryst) (Klor-Con M) meloxicam 15 mg tablet See Rx Instructions .Route 10/24/22 11/24/24 Unknown Rx .COMPLEX #30 tabs isosorbide mononitrate 30 mg 15 mg (1/2 x 30 mg) PO DAILY@0900 07/30/23 11/24/24 Unknown Rx tablet,extended release 24 hr #90 tabs clopidogrel 75 mg tablet 75 mg PO DAILY@0900 #90 tabs 08/08/23 11/24/24 Unknown Rx valsartan 160 mg tablet 160 mg PO BID #180 tabs 08/08/23 11/24/24 Unknown Rx varenicline 1 mg tablet (Chantix) 1 mg PO BID 06/22/24 11/24/24 Unknown History atorvastatin 20 mg tablet 20 mg PO DAILY 11/24/24 11/24/24 Unknown History azelastine 137 mcg (0.1 %) nasal 2 spray intranasal DAILY 11/24/24 11/24/24 Unknown History spray calcium carbonate (Calcium 600) 600 mg PO DAILY 11/24/24 11/24/24 Unknown History dulaglutide 3 mg/0.5 mL 3 mg SUBCUT Q7D 11/24/24 11/24/24 Unknown History subcutaneous pen injector (Trulicity) levocetirizine 5 mg tablet 5 mg PO DAILY 11/24/24 11/24/24 Unknown History terbinafine HCl 250 mg tablet 250 mg PO DAILY 11/24/24 11/24/24 Unknown History Allergies Allergy/AdvReac Type Severity Reaction Status Date / Time metformin Allergy ADR-Nausea Verified 11/23/24 21:14 pollen Allergy Unknown ALGY-Sneezi Uncoded 06/22/24 15:25 ng Current Medications Generic Name Dose Route Start Last Admin Trade Name Freq PRN Reason Stop Dose Admin Albuterol/Ipratropium 3 ml 11/24/24 02:00 11/25/24 14:17 Ipratropium-Albuterol 3 Ml Neb INHALATION 3 ml Q6H.RESP JIHAN Administration Aspirin 81 mg 11/25/24 09:00 11/25/24 08:39 Aspirin 81 Mg Ec Tablet PO 81 mg DAILY JIHAN Administration Atorvastatin Calcium 40 mg 11/25/24 09:00 11/25/24 08:39 Atorvastatin 40 Mg Tablet PO 40 mg DAILY JIHAN Administration Carbamazepine 100 mg 11/24/24 09:00 11/25/24 08:40 Carbamazepine Xr (12 Hr) 100 Mg Tablet PO 100 mg BID JIHAN Administration Clopidogrel Bisulfate 75 mg 11/25/24 09:00 11/25/24 08:39 Clopidogrel 75 Mg Tablet PO 75 mg DAILY@0900 JIHAN Administration Divalproex Sodium 250 mg 11/24/24 21:00 11/25/24 11:30 Divalproex Er 250 Mg Tablet (24h) PO 250 mg TID@0900,1200,2100 JIHAN Administration Enoxaparin Sodium 40 mg 11/24/24 21:00 11/24/24 20:43 Enoxaparin 40 Mg/0.4 Ml Syringe SUBCUT 40 mg Q24H JIHAN Administration Insulin Human Lispro 0 unit 11/24/24 18:00 11/25/24 16:08 Insulin Lispro 100 Unit/1 Ml SUBCUT Not Given WM&BEDTIME JIHAN Protocol Levetiracetam 750 mg 11/24/24 21:00 11/25/24 08:40 Levetiracetam 500 Mg Tablet PO 750 mg BID@0900,2100 JIHAN Administration Losartan Potassium 100 mg 11/24/24 09:00 11/25/24 08:39 Losartan 50 Mg Tablet PO 100 mg DAILY JIHAN Administration Nicotine 1 patch 11/24/24 09:00 11/25/24 08:39 Nicotine 7 Mg Patch TRANSDERMA 1 patch DAILY JIHAN Administration Senna 17.2 mg 11/24/24 21:00 11/24/24 20:43 Sennosides 8.6 Mg Tablet PO 17.2 mg BEDTIME JIHAN Administration PFSH Acute 2 PFSH: Medical History Osteoarthritis of left knee he says he needs to lose 40lbs before he can get L. TKA. Obesity DJD (degenerative joint disease) of knee RBBB Hypertension COPD (chronic obstructive pulmonary disease) GERD (gastroesophageal reflux disease) TIA (transient ischemic attack) Seizure Surgical History H/O eye surgery Left eye surgery due to trauma to the left eye. History of cataract surgery bilateral History of tonsillectomy and adenoidectomy both tonsils removed. Only L. adenoids removed as a child. Family History Father Alzheimer disease Mother COPD (chronic obstructive pulmonary disease) CAD (coronary artery disease) Diabetes Stroke Cancer Hypertension Brother COPD (chronic obstructive pulmonary disease) Sister Stroke Other Glaucoma Social History Smoking and tobacco/nicotine status: current every day tobacco/nicotine user Alcohol intake: current Alcohol intake frequency: few times a month Alcohol use comment: Used to drink Six fifths of vodka, 2.5gals of lan shine, fifth of bourbon Substance/Drug Use: former Former substance use details: heroine, acid, injected liquid crystal as a teen. Marijuana in 30s-40s. Additional social history: smoked 3.5ppd x 8-9yrs. Now smokes 1ppd a week. Vitals/I&O/Wt Last Vital Signs Temp 97.3 F L 11/25/24 15:27 Pulse 74 11/25/24 15:27 Resp 16 11/25/24 15:27 BP 137/62 11/25/24 15:27 Pulse Ox 95 11/25/24 15:27 O2 Del Method Room Air 11/25/24 15:27 11/25/24 11/25/24 11/25/24 06:59 14:59 22:59 Intake Total 480 / 2200 720 / 720 Balance 480 / 1500 720 / 720 Weight last 48 hrs Weight 230 lb 8 oz Weight 230 lb Physical Exam 2 Const: COMMON NORMALS: no acute distress and patient oriented x3 GENERAL APPEARANCE: cooperative and comfortable ORIENTATION/CONSCIOUSNESS: Yes awake, Yes oriented to person, Yes oriented to place and Yes oriented to time Chest: COMMONS NORMALS: normal inspection of the chest and normal palpation of entire chest wall CHEST: Yes Symmetrical chest wall rise Resp: COMMON NORMALS: normal respiratory effort, No retractions, No use of accessory muscles and clear to auscultation bilaterally EFFORT & INSPECTION: Yes symmetric chest movement AUSCULTATION: clear to auscultation bilaterally Cardio: COMMON NORMALS: regular rate, regular rhythm, S1 normal heart sound present, S2 normal heart sound present, No gallops present (Cardio), No clicks present (Cardio), No murmurs present (Cardio) and No rub (Cardio) RATE: r egular rate RHYTHM: regular rhythm HEART SOUNDS: S1 normal heart sound present and S2 normal heart sound present PERIPHERAL PULSES: radial pulses present Extremity: COMMON NORMALS: no pedal edema Neuro: COMMON NORMALS: patient oriented x3 and moves all extremities S ENSORIUM/ORIENTATION: Yes oriented to person, Yes oriented to place and Yes oriented to time Data 11/25/24 19:12 11/25/24 19:12 A&P Assessment and plan (1) Chest pain: He presents with chest pain, found to have abnormal stress test with reversibility in the RCA distribution. Since he has eaten today we will make him n.p.o. after midnight and plan for coronary angiogram with possible PCI tomorrow. Continue aspirin and Plavix. He is on a nitroglycerin drip currently. Blood pressure elevated, continue losartan and isosorbide. Nicotine patch in place. (2) Hypertension: Qualifiers: Hypertension type: essential hypertension Qualified Code(s): I10 - Essential (primary) hypertension (3) COPD (chronic obstructive pulmonary disease): Qualifiers: COPD type: chronic bronchitis Chronic bronchitis type: mucopurulent Qualified Code(s): J41.1 - Mucopurulent chronic bronchitis (4) Elevated hemoglobin A1c: Coding Level of Care Code Acute Code for Chg Fwd Diagnoses Chest pain R07.9 Essential hypertension I10 Hypertension type: essential hypertension Chronic obstructive pulmonary disease, unspecified COPD type J41.1 COPD type: chronic bronchitis Chronic bronchitis type: mucopurulent Elevated hemoglobin A1c R73.09
[2024-11-25 19:38] LABS: Basophils # 0.1 10^3/uL (0.0-0.1); Basophils % 0.8 %; Eosinophils # 0.4 10^3/uL (0.0-0.8); Eosinophils % 5.4 %; Hematocrit 40.4 % (37-53); Lymphocytes # 1.5 10^3/uL (0.8-4.8); Mean Corpuscular HGB Conc 34.4 g/dL (30-55); Mean Corpuscular Hemoglobin 31.7 pg (27-33); Mean Corpuscular Volume 92.2 fl (82-101); Mean Platelet Volume 9.6 fL (7.4-10.4); Monocytes # 0.8 10^3/uL (0.2-0.9); Monocytes % 10.8 %; Neutrophils # 4.66 10^3/uL (1.8-7.7); Neutrophils % 62.6 %; Nucleated Red Blood Cells % 0 %; Platelet Count 246 10^3/cmm (157-399); Red Blood Count 4.38 10^6/uL (3.85-5.65); Red Cell Distribution Width 12.8 % (12.1-15.1); White Blood Count 7.44 10^3/uL (3.29-11.43)
[2024-11-25 19:53] LABS: Anion Gap 15.1 (5-19); Blood Urea Nitrogen 13 mg/dL (8-23); Calcium 9.4 mg/dL (8.5-10.5); Carbon Dioxide 24 mmol/L (22-29); Chloride 100 mmol/L (98-107); Creatinine Clr Calc Pharmacy 95.3254; Glomerular Filtration Rate 83.7 mL/min (90-130); Glucose 141 mg/dL (65-115); Osmolality Calculated 282 mOsm/kg (285-295); Potassium 4.1 mmol/L (3.5-5.1); Sodium 135 mmol/L (136-145)
[2024-11-25] MEDS: sennosides 8.6 mg Tablet 17.2 MG PO (20:44)
[2024-11-25] MEDS: enoxaparin 40 mg/0.4 mL Syringe SUBCUT (20:45)
[2024-11-25 20:48] LABS: Glucose Point of Care 160 mg/dL (70-110)
--- NOTE | 2024-11-25 22:57 | PC.NURSE ---
Assumed care of patient at 0. Patient changing into gown, oriented to room. Girlfriend at bedside. Call light with in reach all questions answered.
[2024-11-26] VITALS (13 sets, daily range): BP systolic 106–162; BP diastolic 62–91; PULSE 70–122; RESP 14–29; TEMP 36.4–36.7; O2SAT 91–97
[2024-11-26] MEDS: ipratropium-albuterol 3 mL Neb INHALATION ×3 (01:37→13:23)
[2024-11-26 03:48] LABS: Basophils # 0.1 10^3/uL (0.0-0.1); Basophils % 0.6 %; Eosinophils # 0.5 10^3/uL (0.0-0.8); Hematocrit 38.8 % (37-53); Lymphocytes # 1.4 10^3/uL (0.8-4.8); Lymphocytes % 18.1 %; Mean Corpuscular HGB Conc 34.3 g/dL (30-55); Mean Corpuscular Hemoglobin 31.9 pg (27-33); Mean Platelet Volume 9.4 fL (7.4-10.4); Monocytes # 0.9 10^3/uL (0.2-0.9); Monocytes % 10.9 %; Neutrophils # 5.04 10^3/uL (1.8-7.7); Nucleated Red Blood Cells % 0 %; Platelet Count 235 10^3/cmm (157-399); Red Blood Count 4.17 10^6/uL (3.85-5.65); Red Cell Distribution Width 12.7 % (12.1-15.1); White Blood Count 7.88 10^3/uL (3.29-11.43)
[2024-11-26 04:04] LABS: Alanine Aminotransferase 16 U/L (0-41); Albumin Level 3.9 g/dL (3.5-5.2); Alkaline Phosphatase 70 U/L (40-130); Anion Gap 14.8 (5-19); Aspartate Amino Transferase 16 U/L (0-40); Blood Urea Nitrogen 13 mg/dL (8-23); Calcium 9.1 mg/dL (8.5-10.5); Carbon Dioxide 26 mmol/L (22-29); Chloride 100 mmol/L (98-107); Creatinine Clr Calc Pharmacy 85.7929; Globulin 2.5 g/dL (1.3-4.6); Glomerular Filtration Rate 74.1 mL/min (90-130); Glucose 155 mg/dL (65-115); Osmolality Calculated 287 mOsm/kg (285-295); Potassium 3.8 mmol/L (3.5-5.1); Sodium 137 mmol/L (136-145); Total Bilirubin 0.3 mg/dL (0.15-1.2); Total Protein 6.4 g/dL (6.6-8.7)
[2024-11-26 06:03] LABS: Glucose Point of Care 145 mg/dL (70-110)
--- NOTE | 2024-11-26 06:36 | XACV_ITS ---
Exam Room: 2 Ht: 180 cm Wt: 104 kg BSA: 2.32 m2 Gender: Male : 1955 Any Known Allergies: Other Exam Priority: Routine Procedure(s): Procedure Description: Diagnostic procedure Procedure Description: Left Heart Catheterization Procedure Description: Left ventriculography Procedure Description: Coronary Angiography Diagnostic Cath Status: Elective Diagnostic Findings * INDICATION: Chest pain/abnormal stress test. * No significant disease noted in the Left Main, Left Anterior Descending, Right, or Circumflex coronary arteries. * Coronary angiography shows right dominance. Conclusions 1. No significant disease noted in the Left Main, Left Anterior Descending, Right, or Circumflex coronary arteries. 2. Normal left ventricular systolic function. Ejection fraction of 60%. Recommendations * Aggressive risk factor modification. * Outpatient cardiology follow up in 2 weeks. Interventional RX Recommendation: medical therapy and/or counseling Diagnostic RX Recommendation: medical therapy and/or counseling Anticoagulation: Heparin Ventriculography Ejection Fraction: 60.0 % Pressures Phase:Rest AO : 111 / 82 ( 97 ) @ 11:19:00 AM 124 / 68 ( 89 ) @ 11:24:00 AM 127 / 69 ( 90 ) @ 11:24:00 AM LV : 127 / 5 / 20 @ 11:22:00 AM 131 / 3 / 21 @ 11:23:00 AM 133 / 3 / 21 @ 11:24:00 AM Valves Phase:DefaultPhase AV : 8.0 @ 11:31:10 AM AV Mean Gradient: 11.0 @ 11:31:10 AM Clinical Evaluation EBL: 5mL-10mL Procedural Details Procedure Consent Obtained. Pre-Procedure Time Out. Identified patient by full name and date of as verbalized by the patient/guarantor. Does the consent match the physician's order: Yes. Accurate & Complete Informed Consent: Yes. Inpatient/Outpatient History & Physical on Chart: Yes. If H&P is completed, is and addenduem needed: No. Visualize and Verify Site with Patient/Guarantor: N/A. Relevant Radiology Images available: Yes. The risks, benefits, and alternatives of sedation and/or procedure were discussed by physician. The patient agrees to continue. Procedure started. [facility] Clinical Fraility Score: 4: Vulnerable. Final Operations Technician Indications: Worsening Angina/Abnormal stress test. Chest Pain Symptom Assessment: Typical Angina Symptoms. Cardiovascular Instability: No. Correct patient, site and procedure confirmed by cath team. PERRLA. Strong, equal hand hand mexican food maker bilaterally. Lungs clear x 5 lobes. IV Site on Arrival: 18 gauge in the left hand. IV Fluids: 0.9% NaCl at KVO. 0 mL infused prior to laborer heading. Pre Procedural Pulses: right radial was 3+. Oxygen started at 2liters/min via nasal canula. right groin was prepped with chloroprep then draped in the usual sterile fashion. right radial was prepped with chloroprep then draped in the usual sterile fashion. Physician notified. Baseline sample Acquired. HR: 90 BPM. Patient's family unavailable. Equipment: 6F - Radial. Cardiac Cath Pack. ACIST Manifold Kit Model BT 2000. Heparinized Saline (2 units/mL), 1000 mL bag. Physician arrived. Physician scrubbed in. Immediate Pre-Procedure Time Out. Correct Patient: Yes; Correct Procedure: Yes; Correct Site: Yes; Correct Patient Position: Yes; Correct Supplies: Yes; Dried Flammable Prep: Yes; Blood Products Available: N/A;. Lidocaine 1% infiltrated to the right radial. Arterial access obtained. A 5 bruneian TIG catheter in over the exchange J wire. Multiple views taken of left coronary artery. Catheter redirected to the RCA. Multiple views taken of right coronary artery. Catheter removed over the exchange J wire. A 5 bruneian Angled Pig catheter in over wire. EDP Sample taken: LV 127/5,20; HR: 79 BPM; SpO2: 97%. LV gram performed in ALAN @ 10 mL/second for a total of 30 mL. EDP Sample taken: LV 131/3,21; HR: 84 BPM; SpO2: 98%. Pullback taken: LV 133/3,21; AO 124/68(89); Mean: 11mmHg, Peak to Peak: 8mmHg, SEP: 19sec/min; HR: 84 BPM; SpO2: 97%. Catheter removed over the exchange J wire. Dr. Cespedes scrubbed out. A TR Band was successful obtaining hemostatsis at the Right Radial artery insertion site. Post Procedure: Pulses reassessed and unchanged. PERRLA. Strong, equal hand hand mexican food maker bilaterally. No VTE prophylaxis required. Medication's Wasted: Lidocaine 1% = 18 mL. Medication's Wasted: Nitro = 49.8 mg. Medication's Wasted: Heparin = 1000 Units. Medication's Wasted: Other = Versed 1 mg. Medication's Wasted: Other = Fentanyl 50 mcg. Total IV fluids: 25 mL. Post-op diagnosis: Non obstructive CAD. Complications: none. Estimated blood loss: 5mL-10mL. Responsiveness - Normal response to verbal stimuli; alert and oriented, PERRLA. Airway - Unaffected, no intervention required; spontaneous ventilation. Circulation: W/N/L, pulses unchanged. Nausea/Vomiting: No. Procedure completed. Patient transferred by bed to 1st floor. Vital chart was stopped. Access Site Site: Right Radial artery Sheath Size: 6 Fr Hemostasis Method: TR Band Hemostasis Success: Successful Procedure Medications Start: 11:08 AM Stop: 11:08 AM Medication: Versed Amount: 1 mg Route: I.V. Start: 11:08 AM Stop: 11:08 AM Medication: Fentanyl Amount: 50 mcg Route: I.V. Start: 11:16 AM Stop: 11:16 AM Medication: Heparin Amount: 5000 units Route: I.V. Start: 11:13 AM Stop: 11:13 AM Medication: Nitrogylcerin Amount: 200 mcg Route: I.A. I, the attending physician, have reviewed and verified all procedure medications. Yes, all medications given per verbal order History/Risk Factors Hypertension: Yes Dyslipidemia: Yes Peripheral Arterial Disease (PAD): No Myocardial Infarction (IL): No Obesity: Yes Renal Disease: No Tobacco Use: Former Prior Interventions PCI: No CABG: No Valve Surgery: No Report Signatures Finalized by Gene Cespedes MD on 11/29/2024 12:33 PM
[2024-11-26] MEDS: aspirin 81 mg EC Tablet PO (09:12)
[2024-11-26] MEDS: isosorbide mononitrate ER 30 mg Tablet PO (09:12)
[2024-11-26] MEDS: nicotine 7 mg Patch 1 PATCH TRANSDERMA (09:12)
[2024-11-26] MEDS: diphenhydrAMINE 50 mg Capsule PO (09:12)
[2024-11-26] MEDS: atorvastatin 40 mg Tablet PO (09:12)
[2024-11-26] MEDS: carBAMazepine XR (12 HR) 100 mg Tablet PO ×2 (09:12→17:32)
[2024-11-26] MEDS: clopidogrel 75 mg Tablet PO (09:12)
[2024-11-26] MEDS: losartan 50 mg Tablet 100 MG PO (09:12)
[2024-11-26] MEDS: pantoprazole DR 40 mg Tablet PO (09:13)
[2024-11-26] MEDS: levETIRAcetam 500 mg Tablet 750 MG PO (09:17)
[2024-11-26] MEDS: divalproex ER 250 mg Tablet (24H) PO ×2 (09:26→13:15)
[2024-11-26] MEDS: sodium chloride 0.9% 1,000 ML 50 ML IV (10:00)
--- NOTE | 2024-11-26 10:01 | P.PN_ITS ---
<Statement entered by Gene Cespedes M.D - 11/26/24 23:23> Patient was evaluated and cared for in conjunction with an advanced practice practitioner. I personally examined the patient and reviewed the chart and all pertinent data including imaging, telemetry, and laboratory results. I discussed the patient in detail with the advanced practice practitioner. Please see their note for complete progress note, results and agreed upon plan of care for the patient. Patient is chest pain free. Coronary angiogram did not show significant CAD. GENERAL: Patient is alert and oriented HEART: Regular S1 and S2 LUNGS: Mild crackles bilaterally EXTREMITIES: Lower extremities with 2+ edema 1) Chest pain 2) Abnormal stress test Coronary angiogram did not reveal significant CAD. Symptoms likely secondary to vasospasm. Will add amlopidipine and outpatient cardiology follow up. Subjective 2 Subjective: He has not had any chest pain overnight. Due to chest pain and abnormal stress test plan is for coronary angiogram today. LVEF 60%. Blood pressure has been elevated 150-160 systolic. Will adjust medications post cath. This morning BUN 13 creatinine 1.0. Vitals/I&O/Wt Last Vital Signs Temp 98.0 F 11/26/24 07:31 Pulse 82 11/26/24 08:49 Resp 18 11/26/24 08:49 BP 161/91 11/26/24 07:31 Pulse Ox 96 11/26/24 08:49 O2 Del Method Room Air 11/26/24 08:49 11/25/24 11/26/24 11/26/24 22:59 06:59 14:59 Intake Total 980 / 1700 0 / 1700 Output Total 875 / 875 Balance 980 / 825 -875 / 825 Weight last 48 hrs Weight 230 lb 8 oz Weight 230 lb 8 oz Physical Exam 2 Const: COMMON NORMALS: no acute distress and patient oriented x3 GENERAL APPEARANCE: cooperative and comfortable ORIENTATION/CONSCIOUSNESS: Yes awake, Yes oriented to person, Yes oriented to place and Yes oriented to time Chest: COMMONS NORMALS: normal inspection of the chest and normal palpation of entire chest wall CHEST: Yes Symmetrical chest wall rise Resp: COMMON NORMALS: normal respiratory effort, No retractions, No use of accessory muscles and clear to auscultation bilaterally EFFORT & INSPECTION: Yes symmetric chest movement AUSCULTATION: clear to auscultation bilaterally Cardio: COMMON NORMALS: regular rate, regular rhythm, S1 normal heart sound present, S2 normal heart sound present, No gallops present (Cardio), No clicks present (Cardio), No murmurs present (Cardio) and No rub (Cardio) RATE: r egular rate RHYTHM: regular rhythm HEART SOUNDS: S1 normal heart sound present and S2 normal heart sound present PERIPHERAL PULSES: radial pulses present Extremity: COMMON NORMALS: no pedal edema Neuro: COMMON NORMALS: patient oriented x3 and moves all extremities S ENSORIUM/ORIENTATION: Yes oriented to person, Yes oriented to place and Yes oriented to time Data 11/26/24 03:27 11/26/24 03:27 A&P Assessment and plan (1) Chest pain: (2) Abnormal stress test: (3) Hypertension: Qualifiers: Hypertension type: essential hypertension Qualified Code(s): I10 - Essential (primary) hypertension Plan Plan for coronary angiogram today to evaluate chest pain given abnormal stress test. Attestations 2 Medical Necessity Statement*: Evaluation of abnormal stress test with left heart cath Coding Level of Care Code Acute Code for [facility] Diagnoses Chest pain R07.9 Abnormal stress test R94.39 Essential hypertension I10 Hypertension type: essential hypertension
--- NOTE | 2024-11-26 11:01 | W.PM.OPSUD ---
Surgery/Procedure H&P Update DATE OF PROCEDURE: November 26, 2024 DATE H&P PERFORMED: 11/25/24 H&P UPDATE INFORMATION: I have reviewed H&P completed within last 30 days, I have examined patient prior to procedure and No changes to prior documentation PREOP DIAGNOSIS: Chest pain/abnormal stress test PRIMARY INDICATION FOR PROCEDURE: Chest pain/abnormal stress test PLANNED PROCEDURE: Operation Date: 11/26/24 10:00 Proposed Procedures p Cardiac Catheterization(Left) - Gene Cespedes M.D Possible percutaneous coronary intervention PATIENT REASSESSED PRIOR TO SEDATION, WITH NO CHANGE NOTED: Yes PHYSICAL EXAM: alert, oriented x 3, clear to auscultation bilaterally and regular rate & rhythm AIRWAY EVAL/ANESTHESIA PLAN: normal airway, ASA III, Local Anesthesia, Risks, benefits & alternatives of sedation and/or procedure discussed and Patient agrees to continue as planned ADDITIONAL INFORMATION: Moderate sedation
--- NOTE | 2024-11-26 11:08 | PC.NURSE ---
off unit to labor and employment paralegal via bed.
[2024-11-26 11:53] LABS: Glucose Point of Care 119 mg/dL (70-110)
--- NOTE | 2024-11-26 12:19 | PM.PROC ---
Procedure Note: Date of procedure: 11/26/24 Pre-procedure diagnosis: Chest pain/abnormal stress test Post-procedure diagnosis: other (Chest pain/abnormal stress test) Procedure: Left heart cath: Patent left main, LAD, left circumflex and RCA arteries. No significant stenosis Aggressive medical therapy Performing Provider: Gene Cespedes Estimated blood loss (mL): 10 Complications: None Condition: stable Disposition: floor Coding Level of Care Code Acute Code for [facility]
--- NOTE | 2024-11-26 15:47 | PM.DCS ---
Discharge Providers Date of Admission: 11/25/24 13:47 Date of Discharge: November 26, 2024 Attending Provider at Admission: Natalia Stacy MD Attending Provider at Discharge: Kika Mahan MD Primary Care Provider: Phoebe Nevarez Diagnoses at Discharge Discharge Diagnosis (1) Chest pain: Status: Acute (2) Abnormal stress test: Status: Acute (3) Hypertension: Status: Acute Qualifiers: Hypertension type: essential hypertension Qualified Code(s): I10 - Essential (primary) hypertension Reason for Visit Reason for Visit: cp Hospital Course Hospital Course Melvin Leiva is a 69 year old male w/ HTN, COPD, GERD, seizure d/o, active tobacco use who presented to the hospital complaining of left-sided chest pain. EKG was without any acute ST-T wave changes, troponin series was unremarkable, however due to persisting chest pain he underwent a cardiac stress test. The cardiac stress test was reported as abnormal with the following findings. Large area of old [place] surrounded by a medium sized area of moderate to severe reversibility suggestive of sharona-infarct ischemia in the RCA territory. Due to the abnormal stress test he underwent coronary angiogram today on November 26, 2024. No obstructive CAD was encountered. It is suspected that patient's chest pain and abnormality on the stress test may be related to coronary vasospasm. Patient is currently on aspirin, atorvastatin, Plavix isosorbide mononitrate 15 mg daily, and valsartan. Patient was evaluated by cardiology. Recommended to add low-dose amlodipine at the time of discharge. Further assessment for addition of beta-blockers to be made as outpatient upon follow-up in 1 week. He is currently chest pain-free..D dimer screen was negative for PE Physical Exam Narrative: General: No acute distress, AO x3 HEENT: PERRLA, pupils bilaterally equal and reactive, pallors not present Chest: Normal vesicular breath sounds, no added sounds, equal good air entry bilaterally CVS: S1-S2 regular, no murmurs, no tachycardia, no gallops, no rubs Abdomen: Soft, nontender, no organomegaly, bowel sounds present Neuro: No focal deficits, no facial deformity, AO x3, power 5/5 in all limbs Discharge Data Studies Completed and Pending Completed Studies During Hospitalization Category Date Time Status Cardiac Stress Test MIBI [Sestamibi Stress Test Request Exams 11/24/24 16:33 Draft ] Routine XR chest 1V portable [id number] Stat Exams 11/24/24 00:00 Completed NM vicenta perf SPECT r/s* [id number] Routine Nuc Med 11/24/24 16:33 Completed CV. echo complete* [id number] Routine Ultrasound 11/24/24 00:25 Completed Pending at discharge Category Date Time Status RN SEXUAL ASSAULT request for service Routine Exams 11/26/24 06:36 Taken Radiology Impressions Chest X-Ray 11/24/24 00:00 IMPRESSION: CHF with pulmonary edema. Laboratory Results WBC 7.88 10^3/uL (3.29-11.43) 11/26/24 03:27 RBC 4.17 10^6/uL (3.85-5.65) 11/26/24 03:27 Hgb 13.30 g/dL (11.27-16.99) 11/26/24 03:27 Hct 38.8 % (37-53) 11/26/24 03:27 MCV 93.0 fl (82-101) 11/26/24 03:27 MCH 31.9 pg (27-33) 11/26/24 03:27 MCHC 34.3 g/dL (30-55) 11/26/24 03:27 RDW 12.7 % (12.1-15.1) 11/26/24 03:27 Plt Count 235 10^3/cmm (157-399) 11/26/24 03:27 MPV 9.4 fL (7.4-10.4) 11/26/24 03:27 Neut % (Auto) 64.0 % 11/26/24 03:27 Lymph % (Auto) 18.1 % 11/26/24 03:27 [place] % (Auto) 10.9 % 11/26/24 03:27 Eos % (Auto) 6.0 % 11/26/24 03:27 Baso % (Auto) 0.6 % 11/26/24 03:27 Neut # (Auto) 5.04 10^3/uL (1.8-7.7) 11/26/24 03:27 Lymph # (Auto) 1.4 10^3/uL (0.8-4.8) 11/26/24 03:27 [place] # (Auto) 0.9 10^3/uL (0.2-0.9) 11/26/24 03:27 Eos # (Auto) 0.5 10^3/uL (0.0-0.8) 11/26/24 03:27 Baso # (Auto) 0.1 10^3/uL (0.0-0.1) 11/26/24 03:27 Nucleated RBC % (auto) 0 % 11/26/24 03:27 Nucleated RBCs # 0.0 /100WBC 11/26/24 03:27 PT 12.80 SECONDS (12.1-14.9) 11/24/24 02:33 INR 0.90 (0.8-1.2) 11/24/24 02:33 APTT 25.4 SECONDS (23.9-36.7) 11/24/24 02:33 D-Dimer 0.50 ug/mLFEU (0-0.59) 11/24/24 16:49 Sodium 137 mmol/L (136-145) 11/26/24 03:27 Potassium 3.8 mmol/L (3.5-5.1) 11/26/24 03:27 Chloride 100 mmol/L (98-107) 11/26/24 03:27 Carbon Dioxide 26 mmol/L (22-29) 11/26/24 03:27 Anion Gap 14.8 (5-19) 11/26/24 03:27 BUN 13 mg/dL (8-23) 11/26/24 03:27 Creatinine 1.0 mg/dL (0.7-1.2) 11/26/24 03:27 GFR Calculation 74.1 mL/min (90-130) L 11/26/24 03:27 Glucose 155 mg/dL (65-115) H 11/26/24 03:27 POC Glucose 119 mg/dL (70-110) H 11/26/24 11:49 Estimat Average Glucose 134 11/24/24 02:33 Hemoglobin A1c 6.3 % (4.0-6.0) H 11/24/24 02:33 Calculated Osmolality 287 mOsm/kg (285-295) 11/26/24 03:27 Calcium 9.1 mg/dL (8.5-10.5) 11/26/24 03:27 Phosphorus 4.2 mg/dL (2.5-4.5) 11/24/24 02:33 Magnesium 2.1 mg/dL (1.7-2.3) 11/24/24 02:33 Total Bilirubin 0.3 mg/dL (0.15-1.2) 11/26/24 03:27 AST 16 U/L (0-40) 11/26/24 03:27 ALT 16 U/L (0-41) 11/26/24 03:27 Alkaline Phosphatase 70 U/L (40-130) 11/26/24 03:27 Troponin T Baseline 9 ng/L (0-15) 11/23/24 20:56 Troponin T 120 Minute 10.31 ng/L (0-15) 11/23/24 22:59 Delta Troponin T 1.31 ABS# (0-10) 11/23/24 22:59 Troponin T Hi Sens 6Hr 9.26 ng/L (0-15) 11/24/24 02:33 Troponin T Hi Sens 6Hr Delta 0.26 ng/L (0-12) 11/24/24 02:33 NT-Pro-B Natriuret Pep 132 pg/mL (0-125) H 11/23/24 20:56 Total Protein 6.4 g/dL (6.6-8.7) L 11/26/24 03:27 Albumin 3.9 g/dL (3.5-5.2) 11/26/24 03:27 Globulin 2.5 g/dL (1.3-4.6) 11/26/24 03:27 Triglycerides 275 mg/dL (0-150) H 11/24/24 02:33 Cholesterol 178 mg/dL (0-200) 11/24/24 02:33 LDL Cholesterol, Calc 87 mg/dL (50-129) 11/24/24 02:33 HDL Cholesterol 36 mg/dL (60-100) L 11/24/24 02:33 LDL/HDL Ratio 2.42 RATIO (0.00-3.22) 11/24/24 02:33 Cholesterol/HDL Ratio 4.94 mg/dL (1.0-5.00) 11/24/24 02:33 Urine Color Yellow (Yellow) 11/24/24 00:36 Urine Appearance Clear (CLEAR) 11/24/24 00:36 Urine pH 6.0 (5-7) 11/24/24 00:36 Ur Specific [place] 1.021 (1.005-1.030) 11/24/24 00:36 Urine Protein Negative (Negative) 11/24/24 00:36 Urine Glucose (UA) Negative (Normal) 11/24/24 00:36 Urine Ketones Negative (Negative) 11/24/24 00:36 Urine Blood Negative (Negative) 11/24/24 00:36 Urine Nitrate Negative (Negative) 11/24/24 00:36 Urine Bilirubin Negative (Negative) 11/24/24 00:36 Urine Urobilinogen 0.2 mg/dL (Negative) 11/24/24 00:36 Ur Leukocyte Esterase Negative (Negative) 11/24/24 00:36 Urine RBC 0-2 /hpf (0-2) 11/24/24 00:36 Urine WBC 0-5 /hpf (0-5) 11/24/24 00:36 Ur Squamous Epith Cells 0-5 /hpf (0-5) 11/24/24 00:36 Amorphous Sediment Not Reportable 11/24/24 00:36 Urine Bacteria None seen /hpf (NONE) 11/24/24 00:36 Hyaline Casts 2.46 /lpf 11/24/24 00:36 Urine Opiates Screen Negative ng/mL (Negative) 11/24/24 00:36 Ur Barbiturates Screen Negative ng/mL (Negative) 11/24/24 00:36 Ur Phencyclidine Scrn Negative ng/mL (Negative) 11/24/24 00:36 Ur Amphetamines Screen Negative ng/mL (Negative) 11/24/24 00:36 U Benzodiazepines Scrn Negative ng/mL (Negative) 11/24/24 00:36 Urine Cocaine Screen Negative ng/mL (Negative) 11/24/24 00:36 U Marijuana (THC) Screen Negative ng/mL (Negative) 11/24/24 00:36 Coronavirus (PCR) Negative (Negative) 11/24/24 00:19 Influenza A (PCR) Negative (Negative) 11/24/24 00:19 Influenza Type B (PCR) Negative (Negative) 11/24/24 00:19 RSV (PCR) Negative (Negative) 11/24/24 00:19 Vitals Last Vital Signs Temp 98.0 F 11/26/24 11:50 Pulse 85 11/26/24 13:24 Resp 18 01/23/25 13:15 BP 106/67 11/26/24 11:50 Pulse Ox 94 11/26/24 13:15 O2 Del Method Room Air 11/26/24 13:15 Discharge Plan Discharge Patient Disposition: Home Condition: Stable Prescriptions: New amlodipine 2.5 mg tablet 2.5 mg PO DAILY 30 Days Qty: 30 0RF Continued magnesium oxide 400 mg magnesium tablet 400 mg PO DAILY@0900 cholecalciferol (vitamin D3) 125 mcg (5,000 unit) capsule 125 mcg PO DAILY@0900 mecobalamin (vitamin B12) 5,000 mcg tablet,disintegrating 5,000 mcg PO DAILY@0900 aspirin 81 mg tablet,delayed release (DR/EC) 81 mg PO DAILY@20 diphenhydramine HCl [Allergy Relief(diphenhydramin)] 25 mg capsule 100 mg PO DAILY@0900 omega-3 fatty acids 1,000 mg capsule 2,000 mg PO DAILY@0900 carbamazepine 100 mg capsule, ER multiphase 12 hr 100 mg PO BID potassium chloride [Klor-Con M10] 10 mEq tablet,ER particles/crystals 10 meq PO DAILY pantoprazole 40 mg tablet,delayed release (DR/EC) 40 mg PO DAILY Qty: 90 3RF ascorbic acid (vitamin C) 250 mg tablet,chewable 500 mg PO DAILY varenicline [Chantix] 1 mg tablet 1 mg PO BID meloxicam 15 mg tablet See Rx Instructions .ROUTE .COMPLEX Qty: 30 2RF Dose Instruction: TAKE 1 TABLET BY MOUTH EVERY DAY Rx Instructions: TAKE 1 TABLET BY MOUTH EVERY DAY isosorbide mononitrate 30 mg tablet extended release 24 hr 15 mg PO DAILY@0900 Qty: 90 3RF clopidogrel 75 mg tablet 75 mg PO DAILY@0900 Qty: 90 3RF valsartan 160 mg tablet 160 mg PO BID Qty: 180 3RF multivitamin [One Daily Vitamin] Tablet 1 tab PO DAILY@0900 levetiracetam 750 mg tablet extended release 24 hr 750 mg PO BID@0900,2100 acetaminophen [Pain Relief (acetaminophen)] 650 mg Tablet Extended Release 1,300 mg PO BID PRN (Reason: arthritis pain) nitroglycerin 0.4 mg tablet, sublingual 0.4 mg sublingual Q5M PRN (Reason: Chest Pain) divalproex 250 mg tablet extended release 24 hr 250 mg PO TID@0900,1200,2100 calcium carbonate [Calcium 600] 600 mg calcium (1,500 mg) Tablet 600 mg PO DAILY atorvastatin 20 mg tablet 20 mg PO DAILY terbinafine HCl 250 mg tablet 250 mg PO DAILY azelastine 137 mcg (0.1 %) spray,non-aerosol 2 spray INTRANASAL DAILY levocetirizine 5 mg tablet 5 mg PO DAILY Trulicity 3 mg/0.5 mL pen injector 3 mg SUBCUT Q7D Discharge Orders: Discharge Order (Routine); Ordered 11/26/24 Ordered By: Kika Mahan Referrals: Billie Denton FNP [Nurse Practitioner] - 12/09/24 2:30 pm ( ) Phoebe Nevarez PA [Primary Care Provider] - 12/03/24 12:20 pm Discharge Diet: Cardiac Discharge Activity: Increase activity as tolerated Patient Instructions: Chest Pain - Noncardiac, Chest Pain Stoplight, Opioid Safety, Post Angiogram Home Care Instructions Discharge Attestations Time Spent in Discharge Care*: greater than 30 min Quality Metrics Clinical Quality Measures [ No reported AMI, CVA or VTE this stay] Coding Level of Care Code Acute Code for Chg Fwd Diagnoses Chest pain R07.9 Abnormal stress test R94.39 Essential hypertension I10 Hypertension type: essential hypertension
[2024-11-26 16:38] LABS: Glucose Point of Care 133 mg/dL (70-110)
--- NOTE | 2024-11-26 18:08 | PC.NURSE ---
Discharge Note Patient discharged to home via private vehicle accompanied by SO and sisters. Discharge instructions reviewed with patient and/or outside industrial sales representative. Mobile pharmacy medications and/or prescriptions provided. Belongings/home medications returned.
== END 2024-11-26 17:34 | disposition home or self-care (01) | DRG 287 ==
LOC: ER 22:44 → ER IP 23:07 → MEDSURG 11-24 17:49 → CSU 11-26 03:20
PROVIDERS: Internal Medicine; Nurse Practitioner Family; Admitting Provider Internal Medicine; Emergency Provider Emergency Medicine; PCP Physician Assistant; Visit Provider Student in an Organized Health Care Education/Training Program
PROC: 4A023N7 Measurement of Cardiac Sampling and Pressure, Left Heart, Percutaneous Approach (ICD-10-PCS; principal; 2024-11-26 10:00)
DX: R07.9 Chest pain, unspecified (principal); R94.39 Abnormal result of other cardiovascular function study; I10 Essential (primary) hypertension; J44.9 Chronic obstructive pulmonary disease, unspecified; K21.9 Gastro-esophageal reflux disease without esophagitis; G40.909 Epilepsy, unspecified, not intractable, without status epilepticus; F17.200 Nicotine dependence, unspecified, uncomplicated; Z86.73 Personal history of transient ischemic attack (TIA), and cerebral infarction without residual deficits; Z79.02 Long term (current) use of antithrombotics/antiplatelets; Z79.82 Long term (current) use of aspirin
CPT/HCPCS: 36415; 36416; 71045; 78452; 80048; 80053; 80061; 80306; 81001; 82962; 83036; 83735; 83880; 84100; 84484; 85025; 85378; 85610; 85730; 87637; 93005; 93017; 93306; 93458; 94640; 96372; 96374; 96375; 96376; 99152; 99153; 99285; A9500; C1769; C1887; C1894; G0378; J1644; J1650; J1815; J2250; J2470; J2785; J3010; J3490; J7030; Q0163; Q9967

== ENCOUNTER → 2024-12-09 14:10 | Outpatient (BNVA) | payer MEDICARE, MEDICAID, SELFPAY | PROVIDERS: PCP Physician Assistant; Visit Provider Nurse Practitioner Family | DX: I10 Essential (primary) hypertension (principal); Z87.891 Personal history of nicotine dependence; I20.1 Angina pectoris with documented spasm | CPT/HCPCS: 99214 ==

== ENCOUNTER → 2024-12-28 14:30 | Outpatient (BNVA) | payer MEDICARE, MEDICAID, SELFPAY | PROVIDERS: PCP Physician Assistant; Visit Provider Internal Medicine | DX: I10 Essential (primary) hypertension (principal); I45.10 Unspecified right bundle-branch block; E66.9 Obesity, unspecified; R56.9 Unspecified convulsions; Z87.891 Personal history of nicotine dependence; Z68.41 Body mass index [BMI] 40.0-44.9, adult; Z86.73 Personal history of transient ischemic attack (TIA), and cerebral infarction without residual deficits | CPT/HCPCS: 99213 ==

== ENCOUNTER → 2025-02-05 08:22 | Outpatient (BNVA) | payer MEDICARE, MEDICAID, SELFPAY | PROVIDERS: PCP Physician Assistant; Visit Provider Nurse Practitioner Family | DX: L21.8 Other seborrheic dermatitis (principal); F42.4 Excoriation (skin-picking) disorder; R58 Hemorrhage, not elsewhere classified; R23.8 Other skin changes; D36.14 Benign neoplasm of peripheral nerves and autonomic nervous system of thorax; L57.8 Other skin changes due to chronic exposure to nonionizing radiation; X32.XXXA Exposure to sunlight, initial encounter; L81.4 Other melanin hyperpigmentation; L82.1 Other seborrheic keratosis; T21.21XA Burn of second degree of chest wall, initial encounter; X58.XXXA Exposure to other specified factors, initial encounter; L82.0 Inflamed seborrheic keratosis; L29.89 Other pruritus; D48.5 Neoplasm of uncertain behavior of skin; L57.0 Actinic keratosis | CPT/HCPCS: 11102; 17000; 17110; 99204 ==

== ENCOUNTER → 2025-02-24 14:54 | Outpatient (BNVA) | payer MEDICARE, MEDICAID, SELFPAY | PROVIDERS: PCP Physician Assistant; Visit Provider Dermatology | DX: D03.62 Melanoma in situ of left upper limb, including shoulder (principal) | CPT/HCPCS: 99214 ==

== ENCOUNTER → 2025-03-15 14:08 | Outpatient (BNVA) | payer MEDICARE, MEDICAID, SELFPAY | PROVIDERS: PCP Physician Assistant; Visit Provider Internal Medicine | DX: I10 Essential (primary) hypertension (principal); I45.10 Unspecified right bundle-branch block; R56.9 Unspecified convulsions; E66.9 Obesity, unspecified; Z68.41 Body mass index [BMI] 40.0-44.9, adult; Z79.01 Long term (current) use of anticoagulants; Z79.82 Long term (current) use of aspirin; Z86.73 Personal history of transient ischemic attack (TIA), and cerebral infarction without residual deficits; Z87.891 Personal history of nicotine dependence | CPT/HCPCS: 99213 ==

== ENCOUNTER 2025-03-31 18:30 | Emergency (ER) | payer MEDICARE, MEDICAID, SELFPAY ==
[2025-03-31 18:44] VITALS: BP 150/78; PULSE 94; RESP 16; TEMP 36.6; O2SAT 95
--- NOTE | 2025-03-31 19:14 | XRR_ITS ---
PROCEDURE INFORMATION: Exam: XR Left Knee Exam date and time: 03/31/2025 7:49 PM Age: 69 years old Clinical indication: Injury or trauma; Fall; Blunt trauma; Knee; Left; Additional info: Fall, pain TECHNIQUE: Imaging protocol: Radiologic exam of the left knee. Views: 3 views. COMPARISON: CR XR knee LT 3V* [id number] 12/31/2023 12:00 PM FINDINGS: Bones/joints: Tricompartmental joint space narrowing, worse in the medial compartment with marginal osteophyte formation. No fracture or dislocation. No sizeable joint effusion. Soft tissues: Normal. XR/XR knee LT 3V* [id number] IMPRESSION: No acute bony abnormality. Degenerative changes.
--- NOTE | 2025-03-31 19:49 | W.ED.EXTPRO ---
HPI - Extremity Problem General: Chief complaint: Extremity Injury, Lower Stated complaint: fall left knee injured Time Seen by Provider: 03/31/25 19:30 Source: patient Mode of arrival: ambulatory Limitations: no limitations History of Present Illness: 69yo male presents with family for evaluation of left knee pain that started when he fell while putting on his pants this morning at 0 930. Patient reports that he tripped on his pants landing directly on the knee. He states that he is able to bear weight, but does have pain. Reports that the left knee is his bad knee and he is needing to lose 30-40 more pounds to have his knee replacement as his knee is [id number] . Patient denies hitting his head, inability to bear weight, any other concerns at this time. Associated symptoms: Deny fever(s) Related Data Home Medications ?Medication ?Instructions ?Recorded ?Confirmed aspirin 81 mg tablet,delayed 81 mg PO DAILY@11/04/19 03/15/25 release diphenhydramine HCl 25 mg capsule 100 mg PO DAILY@0911/04/19 03/15/25 (Allergy Relief (diphenhydramine)) mecobalamin (vitamin B12) 5,000 5,000 mcg PO DAILY@0900 11/04/19 03/15/25 mcg disintegrating tablet acetaminophen 650 mg 1,300 mg PO BID PRN arthritis pain 12/07/20 03/15/25 tablet,extended release (Pain Relief (acetaminophen)) divalproex 250 mg tablet,extended 250 mg PO TID@0900,1200,209912/07/20 03/15/25 release 24 hr nitroglycerin 0.4 mg sublingual 0.4 mg sublingual Q5M PRN Chest 12/07/20 03/15/25 tablet Pain cholecalciferol (vitamin D3) 125 125 mcg PO DAILY@0900 02/21/21 03/15/25 mcg (5,000 unit) capsule magnesium oxide 400 mg PO DAILY@89902/21/21 03/15/25 levetiracetam 750 mg 750 mg PO BID@0900,209904/15/21 03/15/25 tablet,extended release 24 hr multivitamin 1 tab PO DAILY@0900 04/15/21 03/15/25 ascorbic acid (vitamin C) 250 mg 500 mg PO DAILY 02/01/22 03/15/25 chewable tablet carbamazepine 100 mg 100 mg PO BID 02/01/22 03/15/25 capsule,extended release [id number] omega-3 fatty acids 1,000 mg 2,000 mg PO DAILY@0900 02/01/22 03/15/25 capsule potassium chloride 10 mEq 10 meq PO DAILY 02/01/22 03/15/25 tablet,extended release(part/cryst) (Klor-Con M) varenicline tartrate 1 mg tablet 1 mg PO BID 06/22/24 03/15/25 (Chantix) atorvastatin 20 mg tablet 20 mg PO DAILY 11/24/24 03/15/25 azelastine 137 mcg (0.1 %) nasal 2 spray intranasal DAILY 11/24/24 03/15/25 spray calcium carbonate (Calcium 600) 600 mg PO DAILY 11/24/24 03/15/25 dulaglutide 3 mg/0.5 mL 3 mg SUBCUT Q7D 11/24/24 03/15/25 subcutaneous pen injector (Trulicity) levocetirizine 5 mg tablet 5 mg PO DAILY 11/24/24 03/15/25 Luis's wort 300 mg capsule 300 mg PO DAILY 03/15/25 03/15/25 albuterol sulfate 90 mcg/actuation 2 puff inhalation Q6H PRN 03/15/25 03/15/25 aerosol inhaler (Ventolin HFA) budesonide-formoterol HFA 160 2 puff inhalation BID 03/15/25 03/15/25 mcg-4.5 mcg/actuation aerosol inhaler ipratropium bromide 17 2 puff inhalation Q8H 03/15/25 03/15/25 mcg/actuation HFA aerosol inhaler lysine 500 mg tablet 500 mg PO DAILY 03/15/25 03/15/25 Previous Rx's ?Medication ?Instructions ?Recorded meloxicam 15 mg tablet See Rx Instructions .Route 10/24/22 .COMPLEX #30 tabs isosorbide mononitrate 30 mg 15 mg (1/2 x 30 mg) PO DAILY@0900 07/30/23 tablet,extended release 24 hr #90 tabs clopidogrel 75 mg tablet 75 mg PO DAILY@0900 #90 tabs 08/08/23 valsartan 160 mg tablet 160 mg PO BID #180 tabs 08/08/23 amlodipine 2.5 mg tablet 2.5 mg PO DAILY #90 tabs 12/30/24 Allergies Allergy/AdvReac Type Severity Reaction Status Date / Time metformin Allergy ADR-Nausea Verified 03/15/25 15:11 pollen Allergy Unknown ALGY-Sneezi Uncoded 03/15/25 15:11 ng Review of Systems Const: Denies: fever(s) or chills GI: Denies: vomiting Musc: Reports: extremity pain (Left knee) and extremity swelling (Mild, left knee) PFSH ED PFSH: Medical History Osteoarthritis of left knee he says he needs to lose 40lbs before he can get L. TKA. Obesity DJD (degenerative joint disease) of knee RBBB Hypertension COPD (chronic obstructive pulmonary disease) GERD (gastroesophageal reflux disease) TIA (transient ischemic attack) Seizure Surgical History H/O eye surgery Left eye surgery due to trauma to the left eye. History of cataract surgery bilateral History of tonsillectomy and adenoidectomy both tonsils removed. Only L. adenoids removed as a child. Family History Father Alzheimer disease Mother COPD (chronic obstructive pulmonary disease) CAD (coronary artery disease) Diabetes Stroke Cancer Hypertension Brother COPD (chronic obstructive pulmonary disease) Sister Stroke Other Glaucoma Social History Smoking and tobacco/nicotine status: former use of tobacco/nicotine Alcohol intake: current Alcohol intake frequency: few times a month Substance/Drug Use: former Former substance use details: heroine, acid, injected liquid crystal as a teen. Marijuana in 30s-40s. Additional social history: smoked 3.5ppd x 8-9yrs. Now smokes 1ppd a week. Physical Exam Const: COMMON NORMALS: no acute distress, patient oriented x3 and alert GENERAL APPEARANCE: cooperative ORIENTATION/CONSCIOUSNESS: Yes awake OTHER: Patient is sitting upright in a vertical flow recliner in no acute distress. He is able to give history with no difficulty. He is interactive with exam appropriately. Family is at bedside HENMT: COMMON NORMALS: normocephalic and atraumatic HEAD & SCALP: normocephalic and atraumatic Chest: CHEST: Yes Symmetrical chest wall rise Resp: COMMON NORMALS: normal respiratory effort EFFORT & INSPECTION: Yes able to speak in complete sentences Extremity: LEFT LOWER EXTREMITY: Yes knee joint Left knee: Yes inspection (No deformity, effusion, or laceration noted) and Yes palpation (Tenderness to palpation to the lateral and medial knee) Neuro: COMMON NORMALS: patient oriented x3 SENSORIUM/ORIENTATION: Yes alert Psych: COMMON NORMALS: cooperative Course Vital Signs: Vital signs: Vital Signs Temperature 97.9 F 03/31/25 18:44 Pulse Rate 94 03/31/25 18:44 Respiratory Rate 16 03/31/25 18:44 Blood Pressure 150/78 03/31/25 18:44 Pulse Oximetry 95 03/31/25 18:44 Oxygen Delivery Me thod Room Air 03/31/25 18:44 MDM - Extremity (Nontraumatic) Medical Decision Making 69yo male presents with family for evaluation of left knee pain that started when he had a trip and fall while putting on his pants this morning at 0930. Patient has been able to bear weight, but does have pain. He denies any other concerns at this time. Patient is nontoxic in appearance. Vital signs are stable. X-ray reveals degenerative changes. Discussed findings with patient and family. Advised injury is likely a contusion. Advised use of acetaminophen to help with pain as well as cool compress and range of motion exercises. Recommend follow-up with primary care next week for recheck, sooner if needed. Return precautions provided. Patient states understanding and has no further questions or concerns at this time. Medical Records I reviewed the patient's medical records. Lab Data Radiology Impressions Knee X-Ray 03/31/25 19:14 IMPRESSION: No acute bony abnormality. Degenerative changes. All radiology interpretation(s) finalized by discharge Discharge Plan Discharge Patient Disposition: Home Clinical Impression: Acute pain of left knee Fall from slip, trip, or stumble Qualifiers: Encounter type: initial encounter Qualified Code(s): W01.0XXA - Fall on same level from slipping, tripping and stumbling without subsequent striking against object, initial encounter Condition: Stable Prescriptions: No Action magnesium oxide 400 mg magnesium tablet 400 mg PO DAILY@0900 cholecalciferol (vitamin D3) 125 mcg (5,000 unit) capsule 125 mcg PO DAILY@0900 mecobalamin (vitamin B12) 5,000 mcg tablet,disintegrating 5,000 mcg PO DAILY@0900 aspirin 81 mg tablet,delayed release (DR/EC) 81 mg PO DAILY@20 diphenhydramine HCl [Allergy Relief(diphenhydramin)] 25 mg capsule 100 mg PO DAILY@0900 omega-3 fatty acids 1,000 mg capsule 2,000 mg PO DAILY@0900 albuterol sulfate [Ventolin HFA] 90 mcg/actuation HFA aerosol inhaler 2 puff inhalation Q6H PRN lysine 500 mg tablet 500 mg PO DAILY Luis's wort 300 mg capsule 300 mg PO DAILY ipratropium bromide 17 mcg/actuation HFA aerosol inhaler 2 puff inhalation Q8H budesonide-formoterol 160-4.5 mcg/actuation HFA aerosol inhaler 2 puff inhalation BID carbamazepine 100 mg capsule, ER multiphase 12 hr 100 mg PO BID potassium chloride [Klor-Con M10] 10 mEq tablet,ER particles/crystals 10 meq PO DAILY ascorbic acid (vitamin C) 250 mg tablet,chewable 500 mg PO DAILY varenicline tartrate [Chantix] 1 mg tablet 1 mg PO BID meloxicam 15 mg tablet See Rx Instructions .ROUTE .COMPLEX Qty: 30 2RF Dose Instruction: TAKE 1 TABLET BY MOUTH EVERY DAY Rx Instructions: TAKE 1 TABLET BY MOUTH EVERY DAY isosorbide mononitrate 30 mg tablet extended release 24 hr 15 mg PO DAILY@0900 Qty: 90 3RF clopidogrel 75 mg tablet 75 mg PO DAILY@0900 Qty: 90 3RF valsartan 160 mg tablet 160 mg PO BID Qty: 180 3RF amlodipine 2.5 mg tablet 2.5 mg PO DAILY Qty: 90 1RF multivitamin Tablet 1 tab PO DAILY@0900 levetiracetam 750 mg tablet extended release 24 hr 750 mg PO BID@0900,2100 acetaminophen [Pain Relief (acetaminophen)] 650 mg Tablet Extended Release 1,300 mg PO BID PRN (Reason: arthritis pain) nitroglycerin 0.4 mg tablet, sublingual 0.4 mg sublingual Q5M PRN (Reason: Chest Pain) divalproex 250 mg tablet extended release 24 hr 250 mg PO TID@0900,1200,2100 calcium carbonate [Calcium 600] 600 mg calcium (1,500 mg) Tablet 600 mg PO DAILY atorvastatin 20 mg tablet 20 mg PO DAILY azelastine 137 mcg (0.1 %) spray,non-aerosol 2 spray INTRANASAL DAILY levocetirizine 5 mg tablet 5 mg PO DAILY Trulicity 3 mg/0.5 mL pen injector 3 mg SUBCUT Q7D Discharge Orders: Discharge ED (Routine); Ordered 03/31/25 Ordered By: Juan Armas Referrals: Juancarlos Christine DO [Primary Care Provider, [facility]] Discharge Diet: Usual diet Discharge Activity: Increase activity as tolerated Patient Instructions: Knee Pain (ED), Pain Management Activity Restrictions/Additional Instructions: No fracture or acute bony abnormality noted on the x-ray today. The injury is likely contusion. Continue with range of motion exercises to avoid stiffness. Apply a cool compress for 10 to 15 minutes at a time to help with pain and swelling. You may use acetaminophen to help with the pain as well. Follow-up with your doctor, call next week with an update of symptoms and to discuss a recheck. Return to the emergency department if any further injury, rapid worsening symptoms, and as needed Print Language: Albanian Coding Level of Care Code ED Fretted Instruments Inspector for Colby Gonzalez
[2025-03-31 21:39] VITALS: BP 156/84; PULSE 73; RESP 16; O2SAT 93
== END 2025-03-31 21:28 | disposition home or self-care (01) ==
PROVIDERS: Emergency Provider Nurse Practitioner; PCP Electrodiagnostic Medicine
DX: M25.562 Pain in left knee (principal)
CPT/HCPCS: 73562; 99283

== ENCOUNTER → 2025-04-14 14:52 | Outpatient (BNVA) | payer MEDICARE, MEDICAID, SELFPAY | PROVIDERS: PCP Electrodiagnostic Medicine; Visit Provider Dermatology | DX: D04.61 Carcinoma in situ of skin of right upper limb, including shoulder (principal) | CPT/HCPCS: 11623; 12044; 99213 ==

== ENCOUNTER → 2025-04-22 10:42 | Outpatient (BNVA) | payer MEDICARE, MEDICAID, SELFPAY | PROVIDERS: PCP Electrodiagnostic Medicine; Visit Provider Podiatrist Foot & Ankle Surgery | DX: E11.42 Type 2 diabetes mellitus with diabetic polyneuropathy (principal); L60.3 Nail dystrophy; L84 Corns and callosities | CPT/HCPCS: 11056; 11721; 99203 ==

== ENCOUNTER 2025-05-15 19:38 | Emergency (ER) | payer MEDICARE, MEDICAID, SELFPAY ==
--- OUTSIDE RECORDS SUMMARY | 2017-04-26 05:54 | XMS_ITS | Continuity of Care Document ---
Author Organization [facility] sicrandal Address [address] [place] [place] [address] Phone Care Team Providers Care Cotton Grader Name Role Phone Raj Santillan MD Unavailable Unavailable Procedures Procedure Date OBSERVATION CARE DISCHARGE INITIAL OBSERVATION CARE L HRT ARTERY/VENTRICLE ANGIO OFFICE/OUTPATIENT VISIT EST COMPLETE ECHO ELECTROCARDIOGRAM REPORT ELECTROCARDIOGRAM REPORT HT MUSCLE IMAGE SPECT MULT CARDIOVASCULAR STRESS TEST OFFICE/OUTPATIENT VISIT NEW Advance Directives Directive Yes / No Effective Date File Name No Information Encounters Encounter Description Practice Location Reason(s) For Visit Diagnoses Date Provider Providers Copied on Encounter OBSERVATION CARE DISCHARGE [facility], [address] [place], [place], [address], tel:[phone] [facility] No Information 3 7 Jacque Anthony. [address], [place], [place], [address], [place]. tel:[phone] Referring Provider: Raj Santillan MD S, [address], [place], [address] . tel:[phone] INITIAL OBSERVATION CARE [facility], [facility] [address] [place], [address], tel:[phone] [address] [place] [address] No Information 2 7 Jacque Anthony. [address], [place], [place], [address], [place]. tel:[phone] Referring Provider: Raj Ware, [address], [place], [address] . tel:[phone] [facility], [facility] [address] [facility], [place], [place], [address], [place] tel:[phone] [address] [place] [address] No Information 7 Lalo Puga. [address], [address], [place], [place], [address], [place]. tel:[phone] Referring Provider: Edd May MD, [address], [place], [address] . tel:[phone] OFFICE/OUTPAT IENT VISIT EST [facility], [address], [place], [place], [address], [place] tel:[phone] [address] [place] [address] No Information 7 Milka Cruz. [address] [facility], [place], [place], [address], [place]. tel:[phone] Referring Provider: Skylar RUSH, [address], [place], [address] . tel:[phone] [facility], [address] [facility] [place], [place], [address], [place] tel:[phone] [address] [place] [address] No Information 7 Cortez Garay. [address], [place], [place], [address], [place]. tel:[phone] Referring Provider: Skylar RUSH, [address], [place], [address] . tel:[phone] [facility], [address] [facility], [place], [place], [address], [place] tel:[phone] [address] [place] [address] No Information 7 Leon Michelle. [address], [place], [place], [address], [place]. tel:[phone] Referring Provider: Boo Russell MD, [address], [place], [address] . tel:[phone] [facility], [address] [facility] [address], [place], [place], [address], [place] tel:[phone] [address] [place] [address] No Information 7 Milka Cruz. [address] [place], [place], [address], [place]. tel:[phone] Referring Provider: Raj Santillan MD S, [address], [place], [address] . tel:[phone] OFFICE/OUTPAT IENT VISIT NEW [facility], [address], [id number], [place] tel:[phone] [address] [place] [address] No Information 7 Milka Cruz. [address] [place], [place], [address], [place]. tel:[phone] Referring Provider: Skylar Lehman DO I, [address], [place], [address] . tel:[phone] Family History Family Member Type Diagnosis Age At Onset No Information Payers Payer name Insurance type Covered green party ID Authorfatoua tievans(s) Medicare Part B [id number] Medicaid [facility] [id number] Social History Type Description Quantity Date Captured Comments Sex Male Smoking Status No Information Chief Complaint And Reason For Visit No Information Reason For Referral Reason For Referral No Information History Of Present Illness Encounter Date Complaint History Of Prese nt Illness No Information Functional Status Date Functional Assessmen t No Information Instructions Date Instruction Additional Infor mation No Information Assessments Type Assessment Date No Information Patient Care Teams Name Effective Dates (start - stop) Status Members No Information
[2025-05-15 19:40] VITALS: BP 143/76; PULSE 74; RESP 16; TEMP 36.6; O2SAT 95; BMI 39.3
--- OUTSIDE RECORDS SUMMARY | 2025-05-15 19:43 | XMS_ITS | Clinical Summary ---
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 2 Active Symbicort 160-4.5 mcg/actuation HFA Aerosol Inhaler TAKE 2 PUFFS BY MOUTH TWICE A DAY 2 Active carBAMazepine (CARBATROL) 100 mg Extended Release 12 hour capsule 2 Active citalopram (CeleXA) 10 mg tablet Take 10 mg by mouth daily. 2 Active isosorbide mononitrate (IMDUR) 30 mg Extended Release 24 hour tablet TAKE 1/2 TABLET BY MOUTH DAILY AT 9AM 2 Active Atrovent HFA 17 mcg/actuation HFA Aerosol Inhaler INHALE 2 PUFFS BY MOUTH 4 TIMES DAILY 2 Active pantoprazole (PROTONIX) 20 mg Tablet, Delayed Release (E.C.) TAKE 1 TABLET BY MOUTH DAILY, STOP OMEPRAZOLE 2 Active potassium chloride (KLOR-CON) 10 mEq Extended Release tablet Take 10 mEq by mouth daily. 2 Active meloxicam (MOBIC) 15 mg tablet 2 Active levETIRAcetam (KEPPRA XR) 750 mg Extended Release 24 hour tablet Take 750 mg by mouth 2 times daily. 2 Active valsartan (DIOVAN) 160 mg tablet Take 160 mg by mouth 2 times daily. 2 Active hydroCHLOROthiaz albert 25 mg tablet 2 Active albuterol sulfate 90 mcg/Actuation inhaler INHALE 2 PUFFS BY MOUTH EVERY 4 HOURS NEEDED 2 Active divalproex sodium (DEPAKOTE ORAL) Take by mouth. Activ e dorzolamide (TRUSOPT) 2 % solution ADMINISTER 1 DROP IN LEFT EYE 2 TIMES DAILY. 30 mL 3 3 Active brimonidine (ALPHAGAN) 0.2 % solution ADMINISTER 1 DROP IN LEFT EYE 2 TIMES DAILY. 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 Retinal hole of right eye 09/21/2022 Pseudophakia of both eyes 09/21/2022 Glaucoma suspect of both eyes 09/21/2022 Horseshoe tear of retina of left eye 09/21/2022 Family History Medical History Relation Name Comments Heart Disease Father Diabetes Mother Relation Name Status Comments Father Mother Social History Tobacco Use Types Packs/Day Years Used Date Smoking Tobacco: Former Cigarettes Q uit: 2017 Smokeless Tobacco: Never Tobacco Cessation:Counseling Given: Not Answered Alcohol Use Standard Drinks/Week Comments Not Currently 0 (1 standard drink = 0.6 oz pur e alcohol) occasionally Sex and Gender Information Value Date Recorded Sex Assigned at Not on file Legal Sex Male 9:44 PM [employer] Gender Identity Not on file Sexual Orientation Not on file Last Filed Vital Signs Vital Sign Reading Time Taken Comments Blood Pressure 128/73 09/25/2022 4:14 PM [employer] Pulse 62 09/25/2022 4:14 PM [employer] Temperature 36.4 C (97.5 F) 09/25/2022 4:14 PM [employer] Respiratory Rate 22 09/25/2022 1:21 PM [employer] Oxygen Saturation 95% 09/25/2022 4:14 PM [employer] Inhaled Oxygen Concentration - - Weight 133.8 kg (295 lb) 09/25/2022 1:21 PM [employer] Height 180.3 cm (5' 11 ) 09/25/2022 1:21 PM [employer] Body Mass Index 41.14 09/25/2022 1:21 PM [employer] Plan of Treatment Upcoming Encounters Date Type Department Care Team (Late st Contact Info) Description 07/16/2025 10:30 AM CDT Office Visit [facility] [place] [address] [place] [address] Mercedes Mcrae MD [address] [place] [address] Health Maintenance Due Date Last Done Comments DTAP/TDAP/TD VACCINES (1 - Tdap) 1974 PNEUMOCOCCAL VACCINE 50+ YEARS (1 of 2 - PCV) 06/08/19 74 COLORECTAL SCREENING 2000 Colorectal Cancer Screening 2000 FIT-DNA Q 3 years 2000 FIT/FOBT Q 1 year 2000 Flex Sig/CT Colonography Q 5 years 2000 ZOSTER VACCINE (1 of 2) 2005 RSV VACCINE (60+ or ) (1 - Risk 60-74 years 1-dose series) 2015 INFLUENZA VACCINE (#1) 2025 Insurance [facility] MEDICARE HMO [place]ICA[place]
--- OUTSIDE RECORDS SUMMARY | 2025-05-15 19:44 | XMS_ITS | Clinical Summary ---
Author Organization [facility] Address [address] [place] [address] Care Team Providers Care Voip Engineer Name Role Phone Unavailable Primary Care Provider Unavailabl e Social History Tobacco Use Types Packs/Day Years Used Date Smoking Tobacco: Never Assessed Sex and Gender Information Value Date Recorded Sex Assigned at Not on file Legal Sex Male 4:23 PM CDT Gender Identity Not on file Sexual Orientation Not on file Plan of Treatment Health Maintenance Due Date Last Done Comments DTAP/TDAP/TD VACCINES (1 - Tdap) 1974 COLORECTAL SCREENING 2000 Colorectal Cancer Screening 2000 FIT-DNA Q 3 years 2000 FIT/FOBT Q 1 year 2000 Flex Sig/CT Colonography Q 5 years 2000 PNEUMOCOCCAL VACCINE 50+ YEARS (1 of 1 - PCV) 06/08/20 05 ZOSTER VACCINE (1 of 2) 2005 INFLUENZA VACCINE (#1) 2025 RSV VACCINE (60+ or ) (1 - 1-dose 75+ series) 2030 Insurance [facility] DUAL COMPLETE MCR PPO D-SNP
--- OUTSIDE RECORDS SUMMARY | 2025-05-15 19:44 | XMS_ITS | Data Portability ---
Author Organization [facility] Josué Chatman [facility] Address [address] [place] [address] Care Team Providers Care Personal Financial Representative Name Role Phone CAROL BARRETT Primary Care Provider ROLANDO Osman Internal Medicine Assessment Encounter Date Assessment Date Assessment LastModified by Organization Details LastModified Time 07/16/2024 07/16/2024 Will stop plavix and meloxicam 5 days prior and will stay on Aspirin. Not available 07/16/2024 15:14:59 03/23/2025 03/23/2025 Document scribed by Jose [employer]. I was present during interview and exam. I have reviewed and agree with above documentation . Dr. Carol Brarett. [email or web address] Not available 03/23/2025 15:36:53 Plan of Treatment Reminders Order Date Submit Date Provider Last Modified By Organization Details Last Modified Time Details Appointments RECHECK 10 2024 01:40P Chio Barrett, DO Not available Not available Not available Lab CMP, serum or plasma 2024 025 [email or web address] 7 [facility], [address], [place], [address], 03/24/2025 07:05:06 CBC 2024 025 [email or web address] 7 [facility], [address], [place], [address], 03/24/2025 07:05:06 hemoglobi n A1C/hemog lobin total, QN, blood 2024 025 [email or web address] 7 [facility], [address], [address], [place], [address], 03/24/2025 07:05:06 microalbu min/creat inine, mass ratio, urine 2024 025 [facility], [address] [address], [address] [place], [address], 03/25/2025 09:24:52 lipid panel, blood 2024 025 [email or web address] 7 [facility], [address], [place], [address], 03/24/2025 07:05:[address] [facility] 2024 025 [email or web address] [facility], [address], [address], [place], [address], 05/10/2025 11:43:02 Procedures colonosco py procedure (PROC) 2023 024 asurface Not available 07/27/2024 16:54:21 colonosco py, with removal of tumor, polyp or lesion (PROC) 2023 024 asurface Not available 07/27/2024 16:54:52 Surgeries None recorded. Imaging None recorded. Medication Orders varenicli ne tartrate 1 mg tablet 2024 025 [facility] [place], [address] [place], [address], 04/30/2025 17:24:37 prednison e 20 mg tablet 2024 025 [facility] [place], [address] [place], [address], 05/06/2025 05:56:13 azithromy you 250 mg tablet 2024 025 [facility], [address] [place] [address], [address], 04/22/2025 16:50:54 Breztri Aerospher e 160 mcg-9mcg- 4.8mcg/ac tuation HFA aerosol inhaler 2024 025 [facility], [address] [place] [address], [address], 04/22/2025 16:50:51 atorvasta tin 20 mg tablet 2024 025 [facility], [address] [place] [address], [address], 04/29/2025 11:17:33 Atrovent HFA 17 mcg/actua tion aerosol inhaler 2024 025 [facility], [address] [place] [address], [address], 04/30/2025 17:24:23 carbamaze pine ER 100 mg tablet,ex tended release,1 2 hr [address], [address], 04/29/2025 11:17:33 divalproe x ER 250 mg tablet,ex tended release 24 hr 2024 025 [facility], [address] [place] [address], [address], 04/30/2025 17:24:25 levetirac etam ER 750 mg tablet,ex tended release 24 hr 2024 025 [email or web address] 7 [facility], [address] [place] [address], [address], 04/22/2025 15:01:22 sumatript an 100 mg tablet 2024 025 [facility], [address] [place] [address], [address], 04/30/2025 17:24:31 meloxicam 15 mg tablet 2024 [email or web address] [place] [address], [address] [place] [address], [address], 04/22/2025 15:01:22 pantopraz ole 20 mg tablet,de layed release 2024 [email or web address] [place] [address], [address] [place] [address], [address], 04/22/2025 15:01:22 amlodipin e 2.5 mg tablet 2024 [email or web address] [place] [address], [address] [place] [address], [address], 04/22/2025 15:01:22 potassium chloride ER 10 mEq tablet,ex tended release 2024 025 [facility], [address] [place] [address], [address], 04/30/2025 17:24:36 valsartan 160 mg tablet 2024 [email or web address] [place] [address], [address] [place] [address], [address], 04/22/2025 15:01:22 Trulicity 3 mg/0.5 mL subcutane ous pen injector 2024 [email or web address] [place] [address], [address] [place] [address], [address], 04/22/2025 15:01:22 clopidogr el 75 mg tablet 2024 025 [facility], [address] [place] [address], [address], 04/30/2025 17:24:35 isosorbid e mononitra te ER 30 mg tablet,ex tended release 24 hr 2024 [email or web address] [place] [address], [address] [place] [address], [address], 04/22/2025 15:01:22 citalopra m 10 mg tablet 2024 025 [facility], [address] [place] [address], [address], 04/30/2025 17:24:29 albuterol sulfate HFA 90 mcg/actua tion aerosol inhaler 2024 [email or web address] [place] [address], [address] [place] [address], [address], 03/24/2025 07:05:06 nicotine 7 mg/24 hr daily transderm al patch 2024 025 [facility] 15, [address], [address], 03/23/2025 14:44:05 citalopra m 10 mg tablet 2024 025 [facility] 15, [address], [address], 12/03/2024 15:28:19 isosorbid e mononitra te ER 30 mg tablet,ex tended release 24 hr 2024 025 [facility] 15, [address], [address], 12/03/2024 15:28:22 Trulicity 3 mg/0.5 mL subcutane ous pen injector 2024 025 [email or web address] [facility], [address], [place], [address], 12/03/2024 17:36:56 Patient TargetsNo targets recorded. Patient Instructions Encounter Date Encounter Id Patient Instructions Last Modified By Organization Details Last Modified Time 07/16/2024 [id number] colonoscopy prep - miralax Not available 07/16/2024 15:15:01 colonoscopy education Not available 07/16/2024 15:15:01 colonoscopy education Not available 07/16/2024 15:15:01 03/23/2025 [id number] smoking cessatio n counseling, greater than 3 minutes up to 10 minutes* [email or web address] Not available 03/24/2025 07:05:06 Reason for Referral Neurologist Referral for Epi lily ORELLANA Referring Physician: Carol Barrett, Family Medicine, Encounter Date: 03/23/2025 Results Created Date Observation Date Name Description Value Unit Range Abnormal Flag Note LastModifiedBy Organization Detail LastModifiedTime 06/16/2006/16/2024 CBC WBC 7.4 x10 4.5-10 .5 Not Available [facility] [address], [place], [address], 06/16/2024 15:05:25 06/16/2006/16/2024 CBC RBC 4.94 x10 4.30-5 .90 Not Available [facility] [address], [place], [address], 06/16/2024 15:05:25 06/16/20 24 06/16/2024 CBC HGB 15.8 g/dL 13.5-1 8.0 Not Available [facility] [address], [place], [address], 06/16/2024 15:05:25 06/16/20 24 06/16/2024 CBC HCT 45.8 % 35.0-6 0.0 Not Available [facility] [address], [place], [address], 06/16/2024 15:05:25 06/16/20 24 06/16/2024 CBC MCV 92.7 fL 80.0-9 9.9 Not Available [facility] [address], [place], [address], 06/16/2024 15:05:25 06/16/20 24 06/16/2024 CBC MCH 32.0 pg 27.0-3 2.0 Not Available [facility] [address] [facility], [place], [address], 06/16/2024 15:05:25 06/16/20 24 06/16/2024 CBC MCHC 34.5 g/dL 32.0-3 6.0 Not Available [facility] [address] [facility], [place], [address], 06/16/2024 15:05:25 06/16/20 24 06/16/2024 CBC RDW 13.0 % 11.5-1 4.5 Not Available [facility] [address] [facility], [place], [address], 06/16/2024 15:05:25 06/16/20 24 06/16/2024 CBC plt 270.9 x10 150.0- 451.0 Not Available [facility] [address] [facility] [address], [place], [address], 06/16/2024 15:05:25 06/16/20 24 06/16/2024 CBC lymphocytes % 24.3 % 20.0-5 0.0 Not Available [facility] [address] [facility], [place], [address], 06/16/2024 15:05:25 06/16/20 24 06/16/2024 CBC granulcytes % 60.7 % 30.0-7 0.0 Not Available [facility] [address] [facility] [address], [place], [address], 06/16/2024 15:05:25 06/16/20 24 06/16/2024 CBC monocytes % 11.6 % 2.0-16 .0 Not Available [facility] [address] [facility], [place], [address], 06/16/2024 15:05:25 06/16/20 24 06/16/2024 CBC granulcytes# 4.5 x10 Not Edilma ilable [facility] [address] [facility] [address], [place], [address], 06/16/2024 15:05:25 06/16/20 24 06/16/2024 CBC lymphocytes # 1.8 x10 Not Available [facility] [address] [facility], [place], [address], 06/16/2024 15:05:25 06/16/20 24 06/16/2024 CBC monocytes # 0.9 x10 Not Avai lable [facility] [address] [facility], [place], [address], 06/16/2024 15:05:25 06/16/20 24 06/16/2024 CMP (MALE ) glucose 145.0 mg/dL 60.0-9 9.0 high Not Available [facility] [address] [facility], [place], [address], 06/16/2024 16:23:17 06/16/20 24 06/16/2024 CMP (MALE ) BUN (blood urea nitrogen) 20.0 mg/dL 10.0-2 6.0 Not Available [facility] [address] [facility], [place], [address], 06/16/2024 16:23:17 06/16/20 24 06/16/2024 CMP (MALE ) creatinine (serum) 1.3 mg/dL 0.4-1. 5 Not Available [facility] [address] [facility], [place], [address], 06/16/2024 16:23:17 06/16/20 24 06/16/2024 CMP (MALE ) BUN/creatini ne ratio 15.27 ratio Not Available [facility] [address] [facility], [place], [address], 06/16/2024 16:23:17 06/16/20 24 06/16/2024 CMP (MALE ) eGFR calculated 57.7 Not Available [facility] [address] [facility], [place], [address], 06/16/2024 16:23:17 06/16/20 24 06/16/2024 CMP (MALE ) total protein 8.0 g/dL 6.0-8. 5 Not Available [facility] [address] [facility], [place], [address], 06/16/2024 16:23:17 06/16/20 24 06/16/2024 CMP (MALE ) total bilirubin 0.5 mg/dL 0.2-1. 3 Not Available [facility] [address] [facility], [place], [address], 06/16/2024 16:23:17 06/16/20 24 06/16/2024 CMP (MALE ) albumin 4.7 g/dL 3.5-5. 5 Not Available [facility] [address] [facility], [place], [address], 06/16/2024 16:23:17 06/16/20 24 06/16/2024 CMP (MALE ) globulin 3.3 calc Not Available [facility] [address] [facility] [address], [place], [address], 06/16/2024 16:23:17 06/16/20 24 06/16/2024 CMP (MALE ) AST (SGOT) 43.0 U/L 0.0-46 .0 Not Available [facility] [address] [facility] [address], [place], [address], 06/16/2024 16:23:17 06/16/20 24 06/16/2024 CMP (MALE ) altv (SGPT) 30.0 U/L 13.0-6 9.0 normal Not Available [facility] [address] [facility], [place], [address], 06/16/2024 16:23:17 06/16/20 24 06/16/2024 CMP (MALE ) A/G ratio 1.4 ratio Not Available [facility] [address] [facility], [place], [address], 06/16/2024 16:23:17 06/16/20 24 06/16/2024 CMP (MALE ) ALP phos 62.0 U/L 30.0-1 40.0 normal Not Available [facility] [address] [facility] [address], [place], [address], 06/16/2024 16:23:17 06/16/20 24 06/16/2024 CMP (MALE ) calcium 10.5 mg/dL 8.4-10 .5 Not Available [facility] [address] [facility], [place], [address], 06/16/2024 16:23:17 06/16/20 24 06/16/2024 CMP (MALE ) sodium 138.0 mmol/ L 136.0- 145.0 Not Available [facility] [address] [facility], [place], [address], 06/16/2024 16:23:17 06/16/20 24 06/16/2024 CMP (MALE ) potassium 4.2 mmol/ L 3.5-5. 1 Not Available [facility] [address] [facility], [place], [address], 06/16/2024 16:23:17 06/16/20 24 06/16/2024 CMP (MALE ) chloride 102.0 mmol/ L 98.0-1 10.0 normal Not Available [facility] [address] [facility], [place], [address], 06/16/2024 16:23:17 06/16/20 24 06/16/2024 CMP (MALE ) C02 28.0 mmol/ L 22.0-3 1.0 Not Available [facility] [address] [facility], [place], [address], 06/16/2024 16:23:17 06/16/20 24 06/16/2024 CMP (MALE ) anion gap 8.0 calc Not Available [facility] [address] [facility], [place], [address], 06/16/2024 16:23:17 06/16/20 24 06/16/2024 CMP (MALE ) osmolality 289.9 calc Not Available [facility] [address] [facility], [place], [address], 06/16/2024 16:23:17 06/16/20 24 06/16/2024 LIPID PROFI LE (MALE ) cholesterol 191.0 mg/dL 0.0-20 0.0 Not Available [facility] [address] [facility], [place], [address], 06/16/2024 16:24:28 06/16/20 24 06/16/2024 LIPID PROFI LE (MALE ) trig 192.0 mg/dL 0.0-15 0.0 high Not Available [facility] [address] [facility] [address], [place], [address], 06/16/2024 16:24:28 06/16/20 24 06/16/2024 LIPID PROFI LE (MALE ) HDL - direct 54.0 mg/dL >40.0 Not Available [facility] [address] [facility] [address], [place], [address], 06/16/2024 16:24:28 06/16/20 24 06/16/2024 LIPID PROFI LE (MALE ) VLDL - direct 38.4 mg/dL Not Available [facility] [address] [facility], [place], [address], 06/16/2024 16:24:28 06/16/20 24 06/16/2024 LIPID PROFI LE (MALE ) LDL - direct 98.6 mg/dL 0.0-13 0.0 Not Available [facility] [address] [facility] [address], [place], [address], 06/16/2024 16:24:28 06/16/20 24 06/17/2024 ALBUM IN, RANDO M URINE W/CRE ATINI NE creatinine, random urine 162 mg/dL 20-320 normal Not Available [facility] [address] [place], [address], 06/17/2024 12:47:37 06/16/2006/17/2024 ALBUM IN, RANDO M URINE W/CRE ATINI NE albumin, urine 1.1 mg/dL see note: normal Refer ence Range : Refer ence Range Not estab lishe d Not Available [facility] [address] [place], [address], 06/17/2024 12:47:37 06/16/20 24 06/17/2024 ALBUM IN, RANDO M URINE W/CRE ATINI NE albumin/crea tinine ratio, random urine 7 mg/g_ creat <30 normal The ADA defin es abnor malit ies in album in excre tion as follo ws: Album inuri a Categ ory Resul t (mg/g creat inine ) Doris l to Mildl y incre ased <30 Moder ately incre ased 30-29 9 Sever mike incre ased > OR = 300 The ADA recom mends that at least two of three speci mens colle cted withi n a 3-6 month perio d be abnor mal befor e consi veronica g a patie nt to be withi n a diagn ostic categ ory. Not Available [facility] [address], [address], 06/17/2024 12:47:37 06/16/20 24 06/17/2024 HEPAT ITIS C AB W/REF L TO HCV RNA, QN, PCR hepatitis C antibody NON-RE ACTIVE non-re active normal HCV antib natalee was non-r eacti ve. There is no labor atory evide nce of HCV infec tion. In most cases , no furth er actio n is requi red. Howev er, if recen t HCV expos ure is suspe cted, a test for HCV RNA (test code 85346 ) is sugge sted. For addit ional infor urbano hartley pleas e refer to http: //[facility] yasmin hartley.que stdia gnost ics.c om/fa q/FAQ 22v1 (This link is being provi ded for infor urbano zhang/ educa ivory l purpo ses only. ) Not Available [employer] [facility] [id number] [place] [address], [address], 06/17/2024 12:47:38 06/16/20 24 06/17/2024 PSA, TOTAL PSA, total 1.26 NG/mL < or = 4.00 normal The total PSA value from this assay syste m is stand ardiz ed again st the WHO stand galo. The test resul t will be appro ximat mike 20% lower when ghulam red to the equim olar- stand ardiz ed total PSA (Marvin man Coult er). Ghulam rison of seria l PSA resul ts shoul d be inter prete d with this fact in mind. This test was perfo rmed using the Sieme ns chemi lumin escen t metho d. Value s obtai michelle from diffe rent assay metho ds canno t be used inter vega eably . PSA level s, regar dless of value , shoul d not be inter prete d as absol alfonso evide nce of the prese nce or absen ce of disea se. Not Available [employer] [facility] [address] [place], [address], 06/17/2024 12:47:39 06/16/20 24 06/16/2024 HbA1c (hemo globi n A1c), blood HbA1c 6.9 Not Available [facility]) [address] [place], [address], 06/16/2024 14:21:01 03/23/20 25 03/23/2025 CBC WBC 6.8 x10 4.5-10 .5 Not Available [facility] [address], [address], 03/23/2025 16:07:38 03/23/20 25 03/23/2025 CBC RBC 4.84 x10 4.30-5 .90 Not Available [facility] [address] [facility] [address], [address], 03/23/2025 16:07:38 03/23/20 25 03/23/2025 CBC HGB 15.3 g/dL 13.5-1 8.0 Not Available [facility] [address] [facility] [address], [address], 03/23/2025 16:07:38 03/23/20 25 03/23/2025 CBC HCT 45.9 % 35.0-6 0.0 Not Available [facility] [address] [facility], [place], [address], 03/23/2025 16:07:38 03/23/20 25 03/23/2025 CBC MCV 94.8 fL 80.0-9 9.9 Not Available [facility] [address] [facility], [place], [address], 03/23/2025 16:07:38 03/23/20 25 03/23/2025 CBC MCH 31.5 pg 27.0-3 2.0 Not Available [facility] [address] [facility], [place], [address], 03/23/2025 16:07:38 03/23/20 25 03/23/2025 CBC MCHC 33.2 g/dL 32.0-3 6.0 Not Available [facility] [address] [facility], [place], [address], 03/23/2025 16:07:38 03/23/20 25 03/23/2025 CBC RDW 12.8 % 11.5-1 4.5 Not Available [facility] [address] [facility], [place], [address], 03/23/2025 16:07:38 03/23/20 25 03/23/2025 CBC plt 249.6 x10 150.0- 451.0 Not Available [facility] [address] [facility], [place], [address], 03/23/2025 16:07:38 03/23/20 25 03/23/2025 CBC lymphocytes % 27.9 % 20.0-5 0.0 Not Available [facility] [address] [facility], [place], [address], 03/23/2025 16:07:38 03/23/20 25 03/23/2025 CBC granulcytes % 53.0 % 30.0-7 0.0 Not Available [facility] [address] [facility] 1, [place], [address], 03/23/2025 16:07:38 03/23/20 25 03/23/2025 CBC monocytes % 12.9 % 2.0-16 .0 Not Available [facility] [address] [facility] 1, [place], [address], 03/23/2025 16:07:38 03/23/20 25 03/23/2025 CBC granulcytes# 3.6 x10 Not Edilma ilable [facility] [address] [address], [place], [address], 03/23/2025 16:07:38 03/23/20 25 03/23/2025 CBC lymphocytes # 1.9 x10 Not Available [facility] [address] [address], [place], [address], 03/23/2025 16:07:38 03/23/20 25 03/23/2025 CBC monocytes # 0.9 x10 Not Avai lable [facility] [address] [address], [place], [address], 03/23/2025 16:07:38 03/23/20 25 03/23/2025 CMP (MALE ) glucose 151.0 mg/dL 60.0-9 9.0 high Not Available [facility] [address] [address], [place], [address], 03/23/2025 16:13:16 03/23/20 25 03/23/2025 CMP (MALE ) BUN (blood urea nitrogen) 19.0 mg/dL 10.0-2 6.0 Not Available [facility] [address] [facility] 1, [place], [address], 03/23/2025 16:13:16 03/23/20 25 03/23/2025 CMP (MALE ) creatinine (serum) 1.1 mg/dL 0.4-1. 5 Not Available [facility] [address] [facility], [place], [address], 03/23/2025 16:13:16 03/23/20 25 03/23/2025 CMP (MALE ) BUN/creatini ne ratio 17.27 ratio Not Available [facility] [address] [facility], [place], [address], 03/23/2025 16:13:16 03/23/20 25 03/23/2025 CMP (MALE ) eGFR calculated 70.5 Not Available [facility] [address] [facility], [place], [address], 03/23/2025 16:13:16 03/23/20 25 03/23/2025 CMP (MALE ) total protein 7.7 g/dL 6.0-8. 5 Not Available [facility] [address] [facility], [place], [address], 03/23/2025 16:13:16 03/23/20 25 03/23/2025 CMP (MALE ) total bilirubin 0.3 mg/dL 0.2-1. 3 Not Available [facility] [address] [facility], [place], [address], 03/23/2025 16:13:16 03/23/20 25 03/23/2025 CMP (MALE ) albumin 4.3 g/dL 3.5-5. 5 Not Available [facility] [address] [facility] 1, [place], [address], 03/23/2025 16:13:16 03/23/20 25 03/23/2025 CMP (MALE ) globulin 3.4 calc Not Available [facility] [address] [facility] 1, [place], [address], 03/23/2025 16:13:16 03/23/20 25 03/23/2025 CMP (MALE ) AST (SGOT) 32.0 U/L 0.0-46 .0 Not Available [facility] [address] [facility] 1, [place], [address], 03/23/2025 16:13:16 03/23/20 25 03/23/2025 CMP (MALE ) altv (SGPT) 39.0 U/L 13.0-6 9.0 normal Not Available [facility] [address] [facility], [place], [address], 03/23/2025 16:13:16 03/23/20 25 03/23/2025 CMP (MALE ) A/G ratio 1.3 ratio Not Available [facility] [address] [facility] 1, [place], [address], 03/23/2025 16:13:16 03/23/20 25 03/23/2025 CMP (MALE ) ALP phos 100.0 U/L 30.0-1 40.0 normal Not Available [facility] [address] [facility] 1, [place], [address], 03/23/2025 16:13:16 03/23/20 25 03/23/2025 CMP (MALE ) calcium 9.4 mg/dL 8.4-10 .5 Not Available [facility] [address] [facility], [place], [address], 03/23/2025 16:13:16 03/23/20 25 03/23/2025 CMP (MALE ) sodium 137.0 mmol/ L 136.0- 145.0 Not Available [facility] [address] [facility], [place], [address], 03/23/2025 16:13:16 03/23/20 25 03/23/2025 CMP (MALE ) potassium 4.6 mmol/ L 3.5-5. 1 Not Available [facility] [address] [facility] [address], [place], [address], 03/23/2025 16:13:16 03/23/20 25 03/23/2025 CMP (MALE ) chloride 102.0 mmol/ L 98.0-1 10.0 normal Not Available [facility] [address] [facility] [address], [place], [address], 03/23/2025 16:13:16 03/23/20 25 03/23/2025 CMP (MALE ) C02 28.0 mmol/ L 22.0-3 1.0 Not Available [facility] [address] [facility] [address], [place], [address], 03/23/2025 16:13:16 03/23/20 25 03/23/2025 CMP (MALE ) anion gap 7.0 calc Not Available [facility] [address] [facility] [address], [place], [address], 03/23/2025 16:13:16 03/23/20 25 03/23/2025 CMP (MALE ) osmolality 287.9 calc Not Available [facility] [address] [facility] [address], [place], [address], 03/23/2025 16:13:16 03/23/20 25 03/23/2025 LIPID PROFI LE (MALE ) cholesterol 186.0 mg/dL 0.0-20 0.0 Not Available [facility] [address] [facility] [address], [place], [address], 03/23/2025 16:13:18 03/23/20 25 03/23/2025 LIPID PROFI LE (MALE ) trig 449.0 mg/dL 0.0-15 0.0 high Not Available [address] [address], [place], [address], 03/23/2025 16:13:18 03/23/20 25 03/23/2025 LIPID PROFI LE (MALE ) HDL - direct 53.0 mg/dL >40.0 Not Available [address] [address], [place], [address], 03/23/2025 16:13:18 03/23/20 25 03/23/2025 LIPID PROFI LE (MALE ) VLDL - direct 89.8 mg/dL Not Available [address] [address], [place], [address], 03/23/2025 16:13:18 03/23/20 25 03/23/2025 LIPID PROFI LE (MALE ) LDL - direct 43.2 mg/dL 0.0-13 0.0 Not Available [address] [address], [place], [address], 03/23/2025 16:13:18 03/23/20 25 03/23/2025 HBA1C hemaglobin A1C 6.4 4.2-6. 5 Not Available [address] [address], [place], [address], 03/23/2025 16:14:23 03/23/20 25 03/25/2025 ALBUM IN, RANDO M URINE W/CRE ATINI NE creatinine, random urine 129 mg/dL 20-320 normal Not Available [facility] [address] [place], [address], 03/25/2025 09:24:52 03/23/20 25 03/25/2025 ALBUM IN, RANDO M URINE W/CRE ATINI NE albumin, urine 0.7 mg/dL see note: normal Refer ence Range : Refer ence Range Not estab lishe d Not Available [facility] [address] [place], [address], 03/25/2025 09:24:52 03/23/20 25 03/25/2025 ALBUM IN, RANDO M URINE W/CRE ATINI NE albumin/crea tinine ratio, random urine 5 mg/g_ creat <30 normal The ADA defin es abnor malit ies in album in excre tion as follo ws: Album inuri a Categ ory Resul t (mg/g creat inine ) Doris l to Mildl y incre ased <30 Moder ately incre ased 30-29 9 Sever mike incre ased > OR = 300 The ADA recom mends that at least two of three speci mens colle cted withi n a 3-6 month perio d be abnor mal befor e consi veronica g a patie nt to be withi n a diagn ostic categ ory. Not Available [facility] [address], [place], [address], 03/25/2025 09:24:52 07/20/20 24 07/16/2024 , kevyn hernández for abdom inal aorti c aneur ysm No observ ation record ed. [email or web address] [facility] [address] [place], [address], 07/21/2024 08:30:13 Result Notes None recorded. Problems Name Problem SNOMED Code Status Onset Date Resolution Date Notes Provider Name and Address Organization Details Recorded Time Type 2 diabetes mellitus 89614141 Active 2022 Not Available [facility] 3 16:04:05 Onychomy cosis 818327686 Active 2022 Not Available [facility] 3 16:04:05 Coronary arterios clerosis 79824558 Active 2023 PHOEBE NEVAREZ PA-C [address] [place], [address] , [facility] 4 15:38:18 Tobacco dependen ce syndrome 48226328 Active 2023 CURRENT TOBACCO USE - Status is Inactive ; Recorded 11/08/19 4:38PM by Phoebe Nevarez PA-C, Annotati on/Adden dum; Promoted ; acuity set as *; TRUDI COXJUDITH null, [facility] 4 16:35:10 [facility] hyperten mindy 47976573 Active 2023 TRUDI COXJUDITH null, [facility] 4 12:59:18 History of malignan t neoplasm of skin 927970343 Active [address] Robb from left shoulder LUIS DICKINSON null, [facility] 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 5 23:25:40 Pain of right knee joint 02229628907 4100 Active 2022 Not Available [facility] 3 16:04:05 Anxiety state 866889928 Active 2022 ANXIETY DISORDER ; Recorded 11/08/19 4:39PM by Phoebe Nevarez PA-C, Office Visit; Promoted ; acuity set as *; Not Available [facility] 3 16:04:04 Hypokale clifton 84003066 Completed 202211/08/2022 CELSO AHUMADA CY - Status is Resolved ; Resolved Date: 11/08/19; Recorded 11/08/19 4:37PM by Phoebe Nevarez PA-C, Annotati on/Adden dum; Promoted ; acuity set as *; Not Available [facility] 3 03:07:56 Hyperlip idemia 05590756 Active 2022 HYPERLIP EMIA; Recorded 11/08/19 4:39PM by Phoebe Nevarez PA-C, Office Visit; Promoted ; acuity set as *; Not Available [facility] 3 16:04:05 Chronic obstruct rangel pulmonar y disease 90161269 Active 2022 CHRONIC AIRWAY OBSTRUCT ION; Recorded 11/08/19 4:39PM by Phoebe Nevarez PA-C, Office Visit; Promoted ; acuity set as *; Not Available [facility] 3 16:04:04 Migraine 41254858 Completed 202211/08/2022 MIGRAINE - Status is Resolved ; Resolved Date: 11/08/19; Recorded 11/08/19 4:37PM by Phoebe Nevarez PA-C, Annotati on/Adden dum; Promoted ; acuity set as *; Not Available [facility] 3 03:07:56 Chest pain 23767215 Completed 202105/08/2022 CHEST PAIN - Status is Inactive ; Recorded 05/08/20 9:58AM by Phoebe Nevarez PA-C, Annotati on/Adden dum; Promoted ; acuity set as *; [facility] 5 15:24:51 Fitting procedur e Completed 202211/08/2022 SEIZURES - Status is Inactive ; Recorded 11/08/19 4:37PM by Phoebe Nevarez PA-C, Annotati on/Adden dum; Promoted ; acuity set as *; Not Available [facility] 3 03:07:56 Other repair of lip Completed 202105/08/2022 Lip injury: stiches required . - Status is Inactive ; 05/08/20 9:56AM by Phoebe Nevarez PA-C, Annotati on/Adden dum; Promoted ; acuity set as *; Not Available [facility] 3 03:07:57 Severe obesity 23471290592 104 Active 2022 OBESITY, MORBID, BMI 40.0-49. 9; Recorded 11/08/19 4:39PM by Phoebe Nevarez PA-C, Office Visit; Promoted ; acuity set as *; Not Available [facility] 3 16:04:05 Tobacco dependen ce syndrome 32221412 Completed 202211/08/2022 CURRENT TOBACCO USE - Status is Inactive ; Recorded 11/08/19 4:38PM by Phoebe Nevarez PA-C, Annotati on/Adden dum; Promoted ; acuity set as *; TRUDI prater [facility] 4 16:35:10 Rib fracture NOS Completed 202105/08/2022 Fx ribs x2 - Status is Inactive ; 05/08/20 9:57AM by Phoebe Nevarez PA-C, Annotati on/Adden dum; Promoted ; acuity set as *; Not Available [facility] 3 03:07:57 Epilepsy 99395960 Active 2022 SEIZURE DISORDER ; Recorded 11/08/19 4:39PM by Phoebe Nevarez PA-C, Office Visit; Promoted ; acuity set as *; Not Available [facility] 3 16:04:05 Gastroes ophageal reflux disease 676740149 Active 2022 GERD (GASTROE SOPHAGEA L REFLUX DISEASE) ; Recorded 11/08/19 23 4:39PM by Phoebe Nevarez PA-C, Office Visit; Promoted ; acuity set as *; Not Available [facility] 3 16:04:04 Notes:Some problems listed i n Document: #[id number] could not be added to this patient's chart. Please review this document and add these problems to the patient's chart manually as needed. Problem Notes None recorded. Procedures Surgical History Date Name Laterality Status Provider Name and Address Organization Details Recorded Time 11/30/19 25 cardiac catheterization completed PHOEBE NEVAREZ PA-C [address] [place], [address], [facility] 12/03/2024 15:29:48 07/16/20 24 abdominal aortic aneurysm screening completed TRUDI OLGUIN [facility] 07/20/2024 14:13:23 Imaging Results None recorded. Procedure Notes None recorded. Medical Equipment None Reported. Allergies Allergen ID Allergen Name Allergen Category Reaction Reaction Severity Criticality Documentation Date Start Date Code Code System Note Provider Name and Address Organization Details Recorded Time 3181 metformin medicatio n rash mild Not available 03/20/2023 6809 RxNorm Not Available [facility] 3 11:35:52 Medications Name Sig Start Date Stop Date Status Note LastModified by Organization Details LastModified Time doxycycli ne hyclate 100 mg capsule take 1 capsule BY MOUTH TWICE DAILY FOR THREE DAYS 04/22 completed Not Available Not Available Not Available atorvasta tin 20 mg tablet TAKE 1 TABLET BY MOUTH EVERY DAY active Not Available Not Available No t Available L-Lysine 500 mg tablet Take 1 tablet every day by oral route in the morning. active Not Available Not Available No t Available azithromy you 250 mg tablet TAKE 2 TABLETS BY MOUTH TODAY, THEN TAKE 1 TABLET DAILY ON DAYS 2-5 active Not Available Not Available No t Available citalopra m 10 mg tablet TAKE 1 TABLET BY MOUTH DAILY active Not Available Not Available No t Available sumatript an 100 mg tablet TAKE 1 TABLET BY MOUTH AT ONSET OF MIGRAINE . MAY REPEAT ONCE AFTER 2 HOURS IF NEEDED (DO not exceed 200mg/24 HOURS) active Not Available Not Available No t Available meloxicam 15 mg tablet TAKE 1 TABLET BY MOUTH EVERY DAY active Not Available Not Available No t Available carbamaze pine ER 100 mg tablet,ex tended release,1 2 hr Take 1 tablet every 12 hours by oral route for 90 days. 2024 active Not Available Not Available Not Avai lable prednison e 20 mg tablet Take 2 tablets every day by oral route in the morning for 7 days. 05/06 completed Not Available Not Available Not Available isosorbid e mononitra te ER 30 mg tablet,ex tended release 24 hr take 1/2 tablet BY MOUTH EVERY DAY at 9am active Not Available Not Available No t Available amlodipin e 2.5 mg tablet TAKE 1 TABLET BY MOUTH EVERY DAY active Not Available Not Available No t Available potassium chloride ER 10 mEq tablet,ex tended release TAKE 1 TABLET BY MOUTH DAILY active Not Available Not Available No t Available clopidogr el 75 mg tablet TAKE 1 TABLET BY MOUTH DAILY at 9am active Not Available Not Available No t Available triamcino lone acetonide 0.1 % topical cream APPLY THIN COAT TO AFFECTED AREA TWICE A DAY 04/27 completed Not Available Not Available Not Available pantopraz ole 20 mg tablet,de layed release TAKE 1 TABLET BY MOUTH EVERY DAY active Not Available Not Available No t Available Vitamin C 250 mg chewable tablet Take 2 tablets every day by oral route. active Not Available Not Available No t Available terbinafi ne HCl 250 mg tablet TAKE 1 TABLET BY MOUTH ONCE DAILY 03/23 completed Not Available Not Available Not Available prednisol one acetate 1 % eye drops,edenilson pension 1 DROP IN LEFT EYE 4X DAILY X 7 DAYS, THEN 3X DAILY X 7 DAYS, THEN 2X DAILY X 7 DAYS THEN STOP 03/20 completed Not Available Not Available Not Available imiquimod 5 % topical cream packet apply thin layer with q-tip TO HEALED area of biopsy ON right wrist ONCE daily saturday- weekends off FOR SIX weeks ONLY THEN STOP, will cause SKIN irritati on active Not Available Not Available No t Available polymyxin B sulfate 10,000 unit-trim ethoprim 1 mg/mL eye drops USE 1 DROP IN LEFT EYE 4 TIMES DAILY FOR 7 DAYS. 03/20 completed Not Available Not Available Not Available brimonidi ne 0.2 % eye drops ADMINIST ER 1 DROP IN both EYE 2 TIMES DAILY. 05/05 completed Not Available Not Available Not Available nitroglyc alvin 0.4 mg sublingua l tablet DISSOLVE 1 TABLET UNDER THE TONGUE EVERY 5 MINUTES NEEDED FOR CHEST PAIN. DO NOT EXCEED A TOTAL OF 3 DOSES IN 15 MINUTES. active Not Available Not Available No t Available aspirin 81 mg tablet Take 1 tablet every day by oral route. active Not Available Not Available No t Available hydrochlo rothiazid e 25 mg tablet TAKE 1 TABLET BY MOUTH EVERY DAY AT 9 AM. 03/23 completed Not Available Not Available Not Available mupirocin 2 % topical ointment apply thin layer TO LEFT shoulder one TO two times a DAY UNTIL HEALED active Not Available Not Available No t Available azelastin e 137 mcg (0.1 %) nasal spray USE 2 SPRAYS IN EACH NOSTRIL TWICE DAILY active Not Available Not Available No t Available ketoconaz ole 2 % topical cream apply TWICE DAILY TO red/flak ing areas ON face and ears NEEDED active Not Available Not Available No t Available doxycycli ne hyclate 100 mg tablet Take 1 tablet by mouth twice daily for 7 days active Not Available Not Available No t Available dorzolami de 2 % eye drops ADMINIST ER 1 DROP IN LEFT EYE 2 TIMES DAILY. 04/15 completed Not Available Not Available Not Available nicotine 7 mg/24 hr daily transderm al patch Apply 1 patch every day by transder mal route for 30 days. 03/23 completed Not Available Not Available Not Available Ventolin HFA 90 mcg/actua tion aerosol inhaler INHALE TWO PUFFS EVERY 4 HOURS NEEDED active Not Available Not Available No t Available magnesium 250 mg (as magnesium oxide) tablet Take 2 tablets every day by oral route in the morning. active Not Available Not Available No t Available valsartan 160 mg tablet TAKE 1 TABLET BY MOUTH TWICE DAILY active Not Available Not Available No t Available Benadryl Allergy 25 mg tablet Take 4 tablets every day by oral route in the morning. active Not Available Not Available No t Available divalproe x ER 250 mg tablet,ex tended release 24 hr TAKE 1 TABLET BY MOUTH THREE TIMES DAILY active Not Available Not Available No t Available carbamaze pine ER 100 mg capsule,e xtended release [id number] TAKE 1 CAPSULE BY MOUTH TWICE A DAY 06/16 completed Not Available Not Available Not Available Atrovent HFA 17 mcg/actua tion aerosol inhaler INHALE TWO PUFFS into lungs FOUR TIMES DAILY active Not Available Not Available No t Available Vitamin C daily active Not Available Not Edilma ilable Not Available atorvasta tin daily 11/14 completed vo KM/dh; 01171; Recorded 12/06/19 23 11:56AM by Trudi Olguin LPN (Authori zetyler through Phoebe Nevarez PA-C), Refill Request; Refill Quantity : 90; Tablet; Not Available Not Available Not Available Compazine every six hours, as needed 11/14 completed 0; Recorded 11/08/19 23 7:21AM by Trudi Olguin LPN, Office Visit; Not Available Not Available Not Available hydrochlo rothiazid e daily 11/[address] SINNA; 0; Recorded 11/08/19 7:21AM by Trudi Olguin LPN, Office Visit; Not Available Not Available Not Available prednisol one acetate daily 06/12 completed 0; Recorded 11/08/19 1:04PM by Trudi Olguin LPN, Office Visit; Not Available Not Available Not Available sumatript an succinate as needed MAX 2 PER 24 HRS 11/14 completed vo KM/DH; 83977; Recorded 11/08/19 7:21AM by Trudi Olguin LPN (Authori zed through Phoebe Nevarez PA-C), Office Visit; Refill Quantity : 0; Not Available Not Available Not Available Klor-Con daily 03/23 completed Not Available Not Available Not Available calcium citrate 600mg every morning active Not Available Not Available No t Available Isopto Atropine daily 12/17 completed left; 0; Recorded 11/08/19 1:07PM by Trudi Olguin LPN, Office Visit; Not Available Not Available Not Available Multivita mins daily 11/14 completed 0; Recorded 11/08/19 7:21AM by Trudi Olguin LPN, Office Visit; Not Available Not Available Not Available pantopraz ole daily 11/14 completed vo KM/dh; 01779; Recorded 11/08/19 7:21AM by Trudi Olguin LPN (Authori urban through Phoebe Nevarez PA-C), Office Visit; Refill Quantity : 90; Tablet; Not Available Not Available Not Available multivita min daily active Not Available Not Available Not Available Divalproe x Sodium (Migraine ) three times daily 11/14 completed vo KM/dh; 28142; Recorded 11/08/19 7:21AM by Trudi Olguin LPN (Authori urban through Phoebe Nevarez PA-C), Office Visit; Refill Quantity : 90; Tablet; Not Available Not Available Not Available Neomycin/ Polymyxin /Dexameth four times daily 06/12 completed left; 0; Recorded 01/05/20 23 1:05PM by Trudi Olguin LPN, Office Visit; Not Available Not Available Not Available Calcium 600 + D(3) every morning active Not Available Not Available No t Available varenicli ne tartrate 1 mg tablet TAKE 1 TABLET BY MOUTH TWICE DAILY active Not Available Not Available No t Available varenicli ne tartrate 0.5 mg (11)-1 mg (42) tablets in a dose pack TAKE DIRECTED 12/03 completed Not Available Not Available Not Available Fish Oil 300 mg-1,000 mg capsule daily active Not Available Not Available Not Available levocetir izine 5 mg tablet TAKE 1 TABLET BY MOUTH EVERY DAY active Not Available Not Available No t Available levetirac etam ER 750 mg tablet,ex tended release 24 hr TAKE 1 TABLET BY MOUTH TWICE DAILY active Not Available Not Available No t Available D3-2000 50 mcg (2,000 unit) capsule Take 2 capsules every day by oral route. active Not Available Not Available No t Available Combivent Respimat 20 mcg-100 mcg/actua tion solution for inhalatio n Inhale 1 puff 4 times a day by inhalati on route. active Not Available Not Available No t Available mecobalam in (vitamin B12) 5,000 mcg disintegr ating tablet Take 1 tablet every day by oral route. active Not Available Not Available No t Available Trulicity 1.5 mg/0.5 mL subcutane ous pen injector INJECT 0.5 ML (1.5 MG) SUBCUTAN EOUSLY ONCE A WEEK 04/23 completed Not Available Not Available Not Available Trulicity 0.75 mg/0.5 mL subcutane ous pen injector INJECT 0.5 ML SUBCUTAN EOUSLY EVERY WEEK 06/12 completed Not Available Not Available Not Available Accu-Chek Guide test strips Use to check blood sugar twice a day 2024 active Not Available Not Available Not Avai lable OneTouch Ultra2 Meter USE DIRECTED DAILY 05/10 completed Not Available Not Available Not Available OneTouch Delica Plus Lancet 33 gauge USE 1 LANCET DAILY TO CHECK SUGAR 05/10 completed Not Available Not Available Not Available Breztri Aerospher e 160 mcg-9mcg- 4.8mcg/ac tuation HFA aerosol inhaler INHALE TWO PUFFS into lungs TWICE DAILY DIRECTED FOR copd; take every single DAY active Not Available Not Available No t Available Trulicity 3 mg/0.5 mL subcutane ous pen injector inject 3mg SUBCUTAN EOUSLY every week active Not Available Not Available No t Available Breyna 160 mcg-4.5 mcg/actua tion HFA aerosol inhaler INHALE 2 PUFFS BY MOUTH TWICE DAILY 03/23 completed Not Available Not Available Not Available Vitals Date Recorded Body height Body mass index (BMI) Body weight Oxygen saturation Oxygen saturation in Arterial blood by Pulse oximetry Heart rate Respiratory rate Body temperature Systolic And Diastolic Provider Name and Address Organization Details Last Updated DateTime 5 175.26 cm 43.7 kg/m2 869281. 34 g 97 % 97 % 70 /min 20 /min 97 [degF] 128/78 mm[Hg] TRUDI OLGUIN [facility] 5 14:37:41 Date Recorded Body height Body mass index (BMI) Body weight Oxygen saturation Oxygen saturation in Arterial blood by Pulse oximetry Heart rate Respiratory rate Systolic And Diastolic Provider Name and Address Organization Details Last Updated DateTime 5 175.26 cm 43.4 kg/m2 220950. 16 g 96 % 96 % 91 /min 20 /min 120/80 mm[Hg] Michelle Robles [facility] 5 15:06:54 Date Recorded Body height Body mass index (BMI) Body weight Oxygen saturation Oxygen saturation in Arterial blood by Pulse oximetry Heart rate Respiratory rate Systolic And Diastolic Provider Name and Address Organization Details Last Updated DateTime 5 175.26 cm 42.6 kg/m2 377608 g 97 % 97 % 88 /min 20 /min 144/88 mm[Hg] LUIS DICKINSON [facility] 5 09:54:21 Date Recorded Body height Body mass index (BMI) Body weight Oxygen saturation Oxygen saturation in Arterial blood by Pulse oximetry Heart rate Respiratory rate Body temperature Systolic And Diastolic Provider Name and Address Organization Details Last Updated DateTime 4 175.26 cm 44.5 kg/m2 453765. 4 g 97 % 97 % 67 /min 20 /min 97.9 [degF] 132/78 mm[Hg] ZAINA MCPHERSON [facility] 14:56:06 Social History Question Answer Notes LastModified by Organizat ion Details LastModified Time Tobacco Smoking Status Current Every Day Smoker PHOEBE NEVAREZ PA-C [address] [place] [address], [address], [facility] 12/03/2024 15:28:57 What Was The Date Of Your Most Recent Tobacco Screening? 12/03/2024 [email or web address] Information not available 12/03/2024 What Is Your Current Pack Years? 30ormorepack years [email or web address] Information not available 06/16/2024 What Is Your Relationship Status? [email or web address] Information not available 06/16/2024 At What Age Did You Start Smoking Tobacco? 10 Information not available 06/16/2024 How Much Tobacco Do You Smoke? 0.25 PPD [email or web address] Information not available 12/03/2024 Has Tobacco Cessation Counseling Been Provided? Yes [email or web address] Information not available 06/16/2024 On What Date Was Tobacco Cessation Counseling Provided? 12/03/2024 [email or web address] Information not available 12/03/2024 Sex: Unknown Functional Status Question Answer Note LastModified by Organizat ion Details LastModified Time How many times per week do you consume alcohol? 1-2 times per week Information not available 06/16/2024 Do you or have you ever used any other forms of tobacco or nicotine? No [email or web address] Information not available 06/16/2024 What is your level of alcohol consumption? Occasional [email or web address] Information not available 06/16/2024 Are you able to walk? YESWOREST [email or web address] Information not available 06/16/2024 Do you have difficulty doing errands alone? No [email or web address] Information not available 06/16/2024 Are you able to care for yourself? Yes [email or web address] Information not available 06/16/2024 Do you or have you ever used any nicotine-free cigarettes, vape, or chewing tobacco? No [email or web address] Information not available 06/16/2024 Mental Status None recorded. Family History Nothing Reported Notes:Cancer: Mother unknown type, Alzheimer's Disease: Father, Hepatitis C; Mother Father: Chronic Arthritis Mother: Insulin Dependent Diabetes Mellitus, Chronic Arthritis, COPD, Coronary Artery Disease Paternal Grandmother: Colon Cancer Sister: COPD Medical History No medical history recorded. Immunizations Vaccine Type Date Status Note Provider Nam e and Address Organization Details Recorded Time zoster recombinant 1 completed PHOEBE NEVAREZ PA-C [address] [place], [address], [facility] 06/16/2024 14:33:38 pneumococcal, unspecified formulation 2 completed Not Available [facility] 06/01/2023 02:51:50 Influenza, split virus, trivalent, preservative 0 completed Not Available [facility] 06/01/2023 02:51:50 Pneumococcal conjugate PCV 13 0 completed Not Available [facility] 06/01/2023 02:51:51 zoster recombinant 1 completed PHOEBE NEVAREZ PA-C [address] [place], [address], [facility] 06/16/2024 14:33:38 Influenza, high-dose, quadrivalent, PF 2 completed PHOEBE NEVAREZ PA-C [address] [place], [address], [facility] 06/16/2024 14:33:38 Influenza, high-dose, quadrivalent, PF 1 completed PHOEBE NEVAREZ PA-C [address] [place], [address], [facility] 06/16/2024 14:33:38 Influenza, adjuvanted, quadrivalent, PF 3 completed PHOEBE NEVAREZ PA-C [address] [place], [address], [facility] 06/16/2024 14:33:38 COVID-19, mRNA, LNP-S, PF, 100 mcg/0.5mL dose or 50 mcg/0.25mL dose 2 completed PHOEBE NEVAREZ PA-C [address] [place], [address], [facility] 06/16/2024 14:33:38 COVID-19, mRNA, LNP-S, PF, 100 mcg/0.5mL dose or 50 mcg/0.25mL dose 1 completed PHOEBE NEVAREZ PA-C [address] [place] [address], [phone], [facility] 06/16/2024 14:33:38 COVID-19, mRNA, LNP-S, PF, 100 mcg/0.5mL dose or 50 mcg/0.25mL dose 2 completed PHOEBE NEVAREZ PA-C [address] [place] [address], [phone], [facility] 06/16/2024 14:33:38 COVID-19, mRNA, LNP-S, PF, 100 mcg/0.5mL dose or 50 mcg/0.25mL dose 1 completed PHOEBE NEVAREZ PA-C [address] [place] [address], [phone], [facility] 06/16/2024 14:33:38 Pneumococcal conjugate PCV20, polysaccharide RKG166 conjugate, adjuvant, PF 2 completed PHOEBE NEVAREZ PA-C [address] [place] [address], [phone], [facility] 06/16/2024 14:33:38 pneumococcal polysaccharide PPV23 9 completed PHOEBE NEVAREZ PA-C [address] [place], [address], [facility] 06/16/2024 14:33:38 Influenza, split virus, trivalent, preservative 3 completed PHOEBE NEVAREZ PA-C [address] [place], [address], [facility] 06/16/2024 14:33:38 Influenza, split virus, quadrivalent, PF 8 completed PHOEBE NEVAREZ PA-C [address] [place], [address], [facility] 06/16/2024 14:33:38 Influenza, adjuvanted, quadrivalent, PF 3 completed PHOEBE NEVAREZ PA-C [address] [place] [address], [phone], [facility] 06/16/2024 14:34:25 RSV, recombinant, protein subunit RSVpreF, adjuvant reconstituted, 0.5 mL, PF 3 completed PHOEBE NEVAREZ PA-C [address] [place] [address], [phone], [facility] 06/16/2024 14:34:25 COVID-19, mRNA, LNP-S, PF, 50 mcg/0.5 mL 3 completed PHOEBE NEVAREZ PA-C [address] [place] [address], [phone], [facility] 06/16/2024 14:34:25 Influenza, high-dose, trivalent, PF 4 completed Not Available [facility] 04/22/2025 08:44:38 Influenza, high-dose, trivalent, PF 5 completed Not Available [facility] 04/22/2025 08:44:38 RSV, recombinant, protein subunit RSVpreF, adjuvant reconstituted, 0.5 mL, PF 3 completed Not Available [facility] 04/22/2025 08:44:38 Tdap 4 completed TRUDI OLGUIN [facility] [place] 06/16/2024 14:59:11 Past Encounters Encounter ID Performer Location Encounter Start Date Encounter Closed Date Diagnosis/Indication Diagnosis SNOMED-CT Code Diagnosis ICD10 Code Diagnosis Note [id number] PHOEBE NEVAREZ PA-C [facility] ([facility]) [address] [place] [phone] 03/20/2023 13:46:47 04/03/2023 06:18:47 Hyperglycemia due to type 2 diabetes mellitus [id number] 08089 E11.65 will start him on Trulicity. I think it would be a great drug for lowering his sugars and wt loss.will bring his first shot her for us to teach him out to given Seizure disorder 3946903 02 G40.909 Type 2 jaki betes mellitus 31512794 E11.9 [id number] PHOEBE NEVAREZ PA-C [facility] ([facility]) [address] [place] [id number] 04/04/2023 13:54:12 04/04/2023 15:27:17 Onychomycosis 072745926 B35.1 reviewed good foot and nail care Type 2 jaki betes mellitus 24276235 E11.9 nails trimmed for pt today. no open wounds [id number] PHOEBE NEVAREZ PA-C [facility] ([facility]) [address] [place] [phone] 05/09/2023 14:48:34 05/09/2023 17:42:07 Tick bite 17598364 W57.XXXA Type 2 jaki betes mellitus 30084982 E11.9 Hyperglyce clifton due to type 2 diabetes mellitus 9365214990 29406 E11.65 will up his trulicity at next refill. doing great with it so far. [id number] PHOEBE NEVAREZ PA-C [facility] ([facility]) [address] [place] [id number] 06/12/2023 15:12:49 06/22/2023 14:43:22 Foot pain 44805524 M79.671 Thickened nails 73877993 5 Q84.5 nails trimmed and filed. no skin breakdown or infection seen.Educa tion on foot care given Type 2 jaki betes mellitus 08230019 E11.9 [id number] PHOEBE NEVAREZ PA-C [facility] ([facility]) [address] [place] [phone] 5 11/14/2023 12:18:05 11/14/2023 14:11:36 Pain of left knee joint 3712841131 26013 M25.562 Finding of frequency of falls 740629262 R29.6 [id number] PHOEBE NEVAREZ PA-C [facility] ([facility]) [address] [place] [phone] 5 12/17/2023 13:45:00 12/17/2023 15:51:27 Type 2 diabetes mellitus 15190444 E11.9 Body mass index 40+ - severely obese 880209372 Z68.41 Seizure disorder 6111743 02 G40.909 Milka Colón, Carbamazip ine, Depakote Chronic ob structive pulmonary disease 81675793 J44.9 Hyperlipidemia 31395431 E78.5 atorvastai n Essential hypertension 63622446 I10 Coronary arteriosclerosis 84413991 I25.10 plavix , Isosorbide [id number] RODO TRONCOSO [facility] ([facility]) [address] [place] [id number] 01/06/2024 14:31:00 01/06/2024 15:25:12 Pain of right knee joint 7695896116 57177 M25.561 Reassured with normal exam today. No discolorat ion noted on knee. Recommend keeping appointmen t next week with PCP, ortho, and continuing physical therapy. Offered knee brace to patient for additional support but patient declined. Will follow up next week. [id number] PHOEBE NEVAREZ PA-C [facility] ([facility]) [address] [place] [id number] 5 01/10/2024 14:18:53 01/10/2024 15:19:59 Exacerbation of intermittent asthma 373165601 J45.21 no evidence of fluid over load and no chest pain [id number] CHANA LYNN[facility] ([facility]) [address] [place] [id number] 5 01/21/2024 11:21:21 01/23/2024 11:36:00 Pain of left knee joint 7685959148 18155 M25.562 pt needs continued PT for L knee pain. was improving until the last fall and needs more PT to get back to baseline Hyperglyce clifton due to type 2 diabetes mellitus 8058171885 40999 E11.65 will up his trulicity at next refill. doing great with it so far. [id number] PHOEBE NEVAREZ PA-C [facility] ([facility]) [address] [place] [address] [phone] 5 04/23/2024 13:57:16 04/23/2024 15:27:59 Coronary arteriosclerosis 35809567 I25.10 plavix , Isosorbide Osteoarthritis 159063255 M19.90 Essential hypertension 30357740 I10 [id number] PHOEBE NEVAREZ PA-C [facility] ([facility]) [address] [place] [address] [id number] 5 06/16/2024 13:33:50 06/16/2024 15:14:05 Adult health examination 862197753 Z00.00 Type 2 jaki betes mellitus 26685799 E11.[address] oscar in 07/2024 Chronic ob structive pulmonary disease 29314161 J44.9 Epilepsy 37347218 G40.90 9 Hyperlipidemia 74510994 E78.5 atorvastai n Hypertensive disorder 38 191473 I10 Benign pro static hyperplasia 141446230 N40.0 Screening for malignant neoplasm of colon 700709311 Z12.11 neg hemoccult in 2020 Nicotine dependence 5629 4008 F17.200 30 + pack year history Administra tion of diphtheria, pertussis, and tetanus vaccine 683749722 Z23 Hepatitis C screening 41 7024507 Z11.59 Abdominal aortic aneurysm screening 495824818 Z13.6 [id number] Konstantin Bermudez MD [facility] ([facility]) [address] [place] [address] [phone] 07/16/2024 14:04:14 07/16/2024 15:33:45 Screening for malignant neoplasm of colon 534199760 Z12.11 Family his tory of cancer of colon 148595969 Z80.0 [id number] PHOEBE NEVAREZ PA-C [facility] ([facility]) [address] [place] [address] [phone] 5 07/16/2024 13:45:21 07/21/2024 09:20:18 [id number] PHOEBE NEVAREZ PA-C [facility] ([facility]) [address] [place] [address] [phone] 5 12/03/2024 14:22:27 12/03/2024 15:39:59 Nicotine dependence 35387711 F17.200 30 + pack year history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
[2025-05-15 20:00] VITALS: BP 133/79; PULSE 76; O2SAT 97
--- NOTE | 2025-05-15 20:04 | ECG_ITS ---
[facility] 2025-05-15 Pat Name: Melvin Leiva Department: Room: Gender: Male Sample Selector: : 1955 Requested By: Nerissa Bae Order Number: [id number] Renzo MD: Felix Mays M.D. Measurements Intervals [place] Rate: 67 P: 7 ID: [id number] QRS: -23 QRSD: 124 T: 14 QT: 366 QTc: 387 Interpretive Statements SINUS RHYTHM BORDERLINE LEFT AXIS DEVIATION [QRS AXIS < -20] MODERATE INTRAVENTRICULAR CONDUCTION DELAY [110+ ms QRS DURATION] VOLTAGE CRITERIA FOR LVH [MEETS CRITERIA IN ONE OF: R(aVL), S(V1), R(V5), R(V5/V6)+S(V1)] Compared to ECG 11/24/2024 22:32:02 Ventricular premature complex(es) no longer present Electronically Signed On 05-18-2025 10:09:04 CDT by Felix Mays M.D. [email or web address]
--- NOTE | 2025-05-15 20:04 | XRR_ITS ---
PROCEDURE INFORMATION: Exam: XR Chest Exam date and time: 05/15/2025 8:26 PM Age: 69 years old Clinical indication: Chest pressure; C/O chest pain; Additional info: Chest pain, shivers TECHNIQUE: Imaging protocol: Radiologic exam of the chest. Views: 1 view. COMPARISON: CR XR chest 1V portable [id number] 11/24/2024 12:25 AM FINDINGS: Lungs: Increased interstitial lung opacities present likely related to chronic interstitial lung changes. The lungs are free of consolidation. Pleural spaces: Unremarkable. No pleural effusion. No pneumothorax. Heart/Mediastinum: Heart is stable in size. Bones/joints: Mild degenerative changes involve the spine. XR/XR chest 1V portable [id number] IMPRESSION: No acute abnormality. Chronic interstitial lung changes.
[2025-05-15 20:26] LABS: Hematocrit 41.8 % (37-53); Hemoglobin 14.40 g/dL (11.27-16.99); Mean Corpuscular HGB Conc 34.4 g/dL (30-55); Mean Corpuscular Hemoglobin 31.5 pg (27-33); Mean Corpuscular Volume 91.5 fl (82-101); Nucleated Red Blood Cells % 0 %; Platelet Count 231 10^3/cmm (157-399); Red Blood Count 4.57 10^6/uL (3.85-5.65); White Blood Count 7.00 10^3/uL (3.29-11.43)
[2025-05-15 20:42] LABS: Troponin(5th) Baseline 12 ng/L (0-15)
[2025-05-15 20:44] LABS: Glucose Urine UA Negative (Normal); Nitrate Urine Negative (Negative); Specific Gravity, Urine 1.020 (1.005-1.030)
[2025-05-15 20:49] LABS: Add Urine Microscopic? YES
[2025-05-15 20:56] LABS: Alanine Aminotransferase 27 U/L (0-41); Albumin Level 4.1 g/dL (3.5-5.2); Alkaline Phosphatase 69 U/L (40-130); Anion Gap 17.5 (5-19); Aspartate Amino Transferase 19 U/L (0-40); Blood Urea Nitrogen 21 mg/dL (8-23); Calcium 9.2 mg/dL (8.5-10.5); Carbon Dioxide 23 mmol/L (22-29); Chloride 102 mmol/L (98-107); Creatinine Clr Calc Pharmacy 105.5634; Globulin 2.5 g/dL (1.3-4.6); Glucose 109 mg/dL (65-115); NT Pro B Type Natriuretic Pept 91 pg/mL (0-125); Osmolality Calculated 290 mOsm/kg (285-295); Potassium 4.5 mmol/L (3.5-5.1); Sodium 138 mmol/L (136-145); Total Protein 6.6 g/dL (6.6-8.7)
--- NOTE | 2025-05-15 21:21 | W.ED.SEIZURE ---
HPI - Seizure General: Chief Complaint: Seizure Stated Complaint: seizure like Time Seen by Provider: 05/15/25 19:44 History of Present Illness: HPI Narrative: Patient is a 69-year-old gentleman that was at [facility], and felt like he was having as shaking feeling or an uneasy feeling. Patient requested to another [employer] member to obtain his girlfriend to have a nitroglycerin which fix the issue. After he was in the car with his girlfriend, patient felt a left substernal mid chest discomfort that resolved spontaneously. He does take an aspirin every day. He has history of coronary artery disease. Cardiology: Date of procedure: 11/26/24 Pre-procedure diagnosis: Chest pain/abnormal stress test Post-procedure diagnosis: other (Chest pain/abnormal stress test) Procedure: Left heart cath: Patent left main, LAD, left circumflex and RCA arteries. No significant stenosis Associated symptoms: Reports chest pain; Deny chills or fever(s) Related Data Home Medications ?Medication ?Instructions ?Recorded ?Confirmed aspirin 81 mg tablet,delayed 81 mg PO DAILY@11/04/19 04/26/25 release diphenhydramine HCl 25 mg capsule 100 mg PO DAILY@89911/04/19 04/26/25 (Allergy Relief (diphenhydramine)) mecobalamin (vitamin B12) 5,000 5,000 mcg PO DAILY@89911/04/19 04/26/25 mcg disintegrating tablet acetaminophen 650 mg 1,300 mg PO BID PRN arthritis pain 12/07/20 04/26/25 tablet,extended release (Pain Relief (acetaminophen)) divalproex 250 mg tablet,extended 250 mg PO TID@0900,1200,209912/07/20 04/26/25 release 24 hr nitroglycerin 0.4 mg sublingual 0.4 mg sublingual Q5M PRN Chest 12/07/20 04/26/25 tablet Pain cholecalciferol (vitamin D3) 125 125 mcg PO DAILY@0900 02/21/21 04/26/25 mcg (5,000 unit) capsule magnesium oxide 400 mg PO DAILY@0900 02/21/21 04/26/25 levetiracetam 750 mg 750 mg PO BID@0900,2100 04/15/21 04/26/25 tablet,extended release 24 hr multivitamin 1 tab PO DAILY@0900 04/15/21 04/26/25 ascorbic acid (vitamin C) 250 mg 500 mg PO DAILY 02/01/22 04/26/25 chewable tablet carbamazepine 100 mg 100 mg PO BID 02/01/22 04/26/25 capsule,extended release [id number] omega-3 fatty acids 1,000 mg 2,000 mg PO DAILY@0900 02/01/22 04/26/25 capsule potassium chloride 10 mEq 10 meq PO DAILY 02/01/22 04/26/25 tablet,extended release(part/cryst) (Klor-Con M) varenicline tartrate 1 mg tablet 1 mg PO BID 06/22/24 04/26/25 (Chantix) atorvastatin 20 mg tablet 20 mg PO DAILY 11/24/24 04/26/25 azelastine 137 mcg (0.1 %) nasal 2 spray intranasal DAILY 11/24/24 04/26/25 spray calcium carbonate (Calcium 600) 600 mg PO DAILY 11/24/24 04/26/25 dulaglutide 3 mg/0.5 mL 3 mg SUBCUT Q7D 11/24/24 04/26/25 subcutaneous pen injector (Trulicity) levocetirizine 5 mg tablet 5 mg PO DAILY 11/24/24 04/26/25 Peoa's wort 300 mg capsule 300 mg PO DAILY 03/15/25 04/26/25 albuterol sulfate 90 mcg/actuation 2 puff inhalation Q6H PRN 03/15/25 04/26/25 aerosol inhaler (Ventolin HFA) budesonide-formoterol HFA 160 2 puff inhalation BID 03/15/25 04/26/25 mcg-4.5 mcg/actuation aerosol inhaler ipratropium bromide 17 2 puff inhalation Q8H 03/15/25 04/26/25 mcg/actuation HFA aerosol inhaler lysine 500 mg tablet 500 mg PO DAILY 03/15/25 04/26/25 Previous Rx's ?Medication ?Instructions ?Recorded meloxicam 15 mg tablet See Rx Instructions .Route 10/24/22 .COMPLEX #30 tabs isosorbide mononitrate 30 mg 15 mg (1/2 x 30 mg) PO DAILY@0900 07/30/23 tablet,extended release 24 hr #90 tabs clopidogrel 75 mg tablet 75 mg PO DAILY@0900 #90 tabs 08/08/23 valsartan 160 mg tablet 160 mg PO BID #180 tabs 08/08/23 amlodipine 2.5 mg tablet 2.5 mg PO DAILY #90 tabs 12/30/24 nitroglycerin 0.4 mg sublingual 0.4 mg sublingual Q5M PRN chest 05/15/25 tablet pain #25 tabs Allergies Allergy/AdvReac Type Severity Reaction Status Date / Time grass pollen Allergy ALGY-Sneezi Verified 04/07/25 14:20 ng grass pollen-[place], Allergy ALGY-Sneezi Verified 04/07/25 14:20 standard ng grass pollen-perennial rye, Allergy ALGY-Sneezi Verified 04/07/25 14:20 standar ng metformin Allergy ADR-Nausea Verified 03/15/25 15:11 pollen extracts Allergy ALGY-Sneezi Verified 04/07/25 14:20 ng ragweed pollen Allergy ALGY-Sneezi Verified 04/07/25 14:20 ng tree and shrub pollen Allergy ALGY-Sneezi Verified 04/07/25 14:20 ng weed pollen Allergy ALGY-Sneezi Verified 04/07/25 14:20 ng Review of Systems Const: Denies: fever(s) or chills ENMT: Denies: throat pain Card: Reports: chest pain; Denies: palpitations or irregular heart rhythm Resp: Denies: dyspnea or productive cough GI: Denies: abdominal pain, nausea or vomiting : Denies: flank pain or difficulty urinating Musc: Denies: neck pain or back pain Skin/Breast: Denies: rash or pruritus Neuro: Denies: headache(s) or numbness in extremities Psych: Denies: anxiety or depression PFS ED PFSH: Medical History (Updated 05/15/25 @ 23:05 by CHRIS Gillette) Osteoarthritis of left knee he says he needs to lose 40lbs before he can get L. TKA. Obesity DJD (degenerative joint disease) of knee RBBB Hypertension COPD (chronic obstructive pulmonary disease) GERD (gastroesophageal reflux disease) TIA (transient ischemic attack) Seizure Surgical History H/O eye surgery Left eye surgery due to trauma to the left eye. History of cataract surgery bilateral History of tonsillectomy and adenoidectomy both tonsils removed. Only L. adenoids removed as a child. Family History Father Alzheimer disease Mother COPD (chronic obstructive pulmonary disease) CAD (coronary artery disease) Diabetes Stroke Cancer Hypertension Brother COPD (chronic obstructive pulmonary disease) Sister Stroke Other Glaucoma Social History Smoking and tobacco/nicotine status: unknown if used tobacco/nicotine Alcohol intake: current Alcohol intake frequency: few times a month Substance/Drug Use: former Former substance use details: heroine, acid, injected liquid crystal as a teen. Marijuana in 30s-40s. Additional social history: smoked 3.5ppd x 8-9yrs. Now smokes 1ppd a week. Physical Exam Const: COMMON NORMALS: no acute distress, average body habitus and patient oriented x3 HENMT: COMMON NORMALS: normocephalic and atraumatic HEAD & SCALP: normocephalic and atraumatic Neck/C-Spine: COMMON NORMALS: full ROM and no lymphadenopathy Chest: COMMONS NORMALS: normal inspection of the chest; negative for normal palpation of entire chest wall (Tenderness) CHEST: Yes Symmetrical chest wall rise Cardio: COMMON NORMALS: regular rate, regular rhythm and No murmurs present (Cardio) RATE: regular rate RHYTHM: regular rhythm GI: COMMON NORMALS: Normal to inspection, nondistended, normoactive bowel sounds present and Soft to palpation PALPATION: Yes Soft to palpation : COMMON NORMALS: Yes no CVA tenderness BLADDER/KIDNEY EXAM: Yes no CVA tenderness Back/Pelvis: COMMON NORMALS: no CVA tenderness Extremity: COMMON NORMALS: normal to inspection, full ROM, capillary refill normal and no pedal edema Neuro: COMMON NORMALS: patient oriented x3 Psych: COMMON NORMALS: mental status grossly normal and Normal thought process present THOUGHT PROCESS: Normal thought process present Skin: COMMON NORMALS: no rashes or lesions noted GENERAL SKIN EXAM: no rashes or lesions noted Course Reevaluation(s): Reevaluation #1: No more issues with chest pain Vital Signs: Vital signs: Vital Signs Temperature 97.9 F 05/15/25 19:40 Pulse Rate 71 05/15/25 23:29 Respiratory Rate 15 05/15/25 23:29 Blood Pressure 143/88 05/15/25 23:29 Pulse Oximetry 95 05/15/25 23:29 Oxygen Delivery Me thod Room Air 05/15/25 23:01 MDM - Seizure MDM Narrative Medical decision making narrative: Patient is 69-year-old gentleman [facility] and started feeling chills. Urinalysis is benign, although does appear mildly concentrated. Workup is essentially negative, 2-hour troponin is negative after the chest pressure on the left side. He has had recent left heart cath which was reviewed, and stress test. Unknown cause at this juncture, however he has been ruled out from an acute standpoint. He was encouraged to return to ED if he has further issues, nitroglycerin has been sent to pharmacy. Patient will follow-up with cardiology on an outpatient basis as well. He states he will call Saturday for an appointment. All of him and his girlfriend's questions were answered their satisfaction. Lab Data 05/15/25 20:15 05/15/25 20:15 Labs: Radiology Impressions Chest X-Ray 05/15/25 20:04 IMPRESSION: No acute abnormality. Chronic interstitial lung changes. Laboratory Results WBC 7.00 10^3/uL (3.29-11.43) 05/15/25 20:15 RBC 4.57 10^6/uL (3.85-5.65) 05/15/25 20:15 Hgb 14.40 g/dL (11.27-16.99) 05/15/25 20:15 Hct 41.8 % (37-53) 05/15/25 20:15 MCV 91.5 fl (82-101) 05/15/25 20:15 MCH 31.5 pg (27-33) 05/15/25 20:15 MCHC 34.4 g/dL (30-55) 05/15/25 20:15 RDW 13.2 % (12.1-15.1) 05/15/25 20:15 Plt Count 231 10^3/cmm (157-399) 05/15/25 20:15 MPV 9.2 fL (7.4-10.4) 05/15/25 20:15 Neut % (Auto) 51.0 % 05/15/25 20:15 Lymph % (Auto) 28.1 % 05/15/25 20:15 [place] % (Auto) 12.4 % 05/15/25 20:15 Eos % (Auto) 7.1 % 05/15/25 20:15 Baso % (Auto) 1.0 % 05/15/25 20:15 Neut # (Auto) 3.56 10^3/uL (1.8-7.7) 05/15/25 20:15 Lymph # (Auto) 2.0 10^3/uL (0.8-4.8) 05/15/25 20:15 [place] # (Auto) 0.9 10^3/uL (0.2-0.9) 05/15/25 20:15 Eos # (Auto) 0.5 10^3/uL (0.0-0.8) 05/15/25 20:15 Baso # (Auto) 0.1 10^3/uL (0.0-0.1) 05/15/25 20:15 Nucleated RBC % (auto) 0 % 05/15/25 20:15 Nucleated RBCs # 0.0 /100WBC 05/15/25 20:15 Sodium 138 mmol/L (136-145) 05/15/25 20:15 Potassium 4.5 mmol/L (3.5-5.1) 05/15/25 20:15 Chloride 102 mmol/L (98-107) 05/15/25 20:15 Carbon Dioxide 23 mmol/L (22-29) 05/15/25 20:15 Anion Gap 17.5 (5-19) 05/15/25 20:15 BUN 21 mg/dL (8-23) 05/15/25 20:15 Creatinine 0.9 mg/dL (0.7-1.2) 05/15/25 20:15 GFR Calculation 83.7 mL/min (90-130) L 05/15/25 20:15 Glucose 109 mg/dL (65-115) 05/15/25 20:15 Calculated Osmolality 290 mOsm/kg (285-295) 05/15/25 20:15 Calcium 9.2 mg/dL (8.5-10.5) 05/15/25 20:15 Total Bilirubin 0.2 mg/dL (0.15-1.2) 05/15/25 20:15 AST 19 U/L (0-40) 05/15/25 20:15 ALT 27 U/L (0-41) 05/15/25 20:15 Alkaline Phosphatase 69 U/L (40-130) 05/15/25 20:15 Troponin T Baseline 12 ng/L (0-15) 05/15/25 20:15 Troponin T 120 Minute 9.70 ng/L (0-15) 05/15/25 22:26 Delta Troponin T -2.30 ABS# (0-10) L 05/15/25 22:26 NT-Pro-B Natriuret Pep 91 pg/mL (0-125) 05/15/25 20:15 Total Protein 6.6 g/dL (6.6-8.7) 05/15/25 20:15 Albumin 4.1 g/dL (3.5-5.2) 05/15/25 20:15 Globulin 2.5 g/dL (1.3-4.6) 05/15/25 20:15 Urine Color Yellow (Yellow) 05/15/25 20:32 Urine Appearance Clear (CLEAR) 05/15/25 20: Urine pH 6.0 (5-7) 05/15/25 20:32 Ur Specific [place] 1.020 (1.005-1.030) 05/15/25 20:32 Urine Protein Negative (Negative) 05/15/25 20:32 Urine Glucose (UA) Negative (Normal) 05/15/25 20: Urine Ketones Negative (Negative) 05/15/25 20: Urine Blood Negative (Negative) 05/15/25 20: Urine Nitrate Negative (Negative) 05/15/25 20:32 Urine Bilirubin Negative (Negative) 05/15/25 20: Urine Urobilinogen 0.2 mg/dL (Negative) 05/15/25 20:32 Ur Leukocyte Esterase Negative (Negative) 05/15/25 20:32 Urine RBC 0-2 /hpf (0-2) 05/15/25 20:32 Urine WBC 0-5 /hpf (0-5) 05/15/25 20:32 Ur Squamous Epith Cells 0-5 /hpf (0-5) 05/15/25 20: Amorphous Sediment Not Reportable 07/12/25 20:32 Urine Bacteria None seen /hpf (NONE) 05/15/25 20:32 Hyaline Casts 0-4 /lpf H 05/15/25 20:32 All radiology interpretation(s) finalized by discharge ED provider radiology interpretation(s): no acute Discharge Plan Discharge Patient Disposition: Home Clinical Impression: Chest pain Qualifiers: Chest pain type: unspecified Qualified Code(s): R07.9 - Chest pain, unspecified Condition: Stable Prescriptions: New nitroglycerin 0.4 mg tablet, sublingual 0.4 mg sublingual Q5M PRN (Reason: chest pain) Qty: 25 0RF Rx Instructions: do not exceed 3 doses per episode No Action magnesium oxide 400 mg magnesium tablet 400 mg PO DAILY@0900 cholecalciferol (vitamin D3) 125 mcg (5,000 unit) capsule 125 mcg PO DAILY@0900 mecobalamin (vitamin B12) 5,000 mcg tablet,disintegrating 5,000 mcg PO DAILY@0900 aspirin 81 mg tablet,delayed release (DR/EC) 81 mg PO DAILY@20 diphenhydramine HCl [Allergy Relief(diphenhydramin)] 25 mg capsule 100 mg PO DAILY@0900 omega-3 fatty acids 1,000 mg capsule 2,000 mg PO DAILY@0900 albuterol sulfate [Ventolin HFA] 90 mcg/actuation HFA aerosol inhaler 2 puff inhalation Q6H PRN lysine 500 mg tablet 500 mg PO DAILY Luis's wort 300 mg capsule 300 mg PO DAILY ipratropium bromide 17 mcg/actuation HFA aerosol inhaler 2 puff inhalation Q8H budesonide-formoterol 160-4.5 mcg/actuation HFA aerosol inhaler 2 puff inhalation BID carbamazepine 100 mg capsule, ER multiphase 12 hr 100 mg PO BID potassium chloride [Klor-Con M10] 10 mEq tablet,ER particles/crystals 10 meq PO DAILY ascorbic acid (vitamin C) 250 mg tablet,chewable 500 mg PO DAILY varenicline tartrate [Chantix] 1 mg tablet 1 mg PO BID meloxicam 15 mg tablet See Rx Instructions .ROUTE .COMPLEX Qty: 30 2RF Dose Instruction: TAKE 1 TABLET BY MOUTH EVERY DAY Rx Instructions: TAKE 1 TABLET BY MOUTH EVERY DAY isosorbide mononitrate 30 mg tablet extended release 24 hr 15 mg PO DAILY@0900 Qty: 90 3RF clopidogrel 75 mg tablet 75 mg PO DAILY@0900 Qty: 90 3RF valsartan 160 mg tablet 160 mg PO BID Qty: 180 3RF amlodipine 2.5 mg tablet 2.5 mg PO DAILY Qty: 90 1RF multivitamin Tablet 1 tab PO DAILY@0900 levetiracetam 750 mg tablet extended release 24 hr 750 mg PO BID@0900,2100 acetaminophen [Pain Relief (acetaminophen)] 650 mg Tablet Extended Release 1,300 mg PO BID PRN (Reason: arthritis pain) nitroglycerin 0.4 mg tablet, sublingual 0.4 mg sublingual Q5M PRN (Reason: Chest Pain) divalproex 250 mg tablet extended release 24 hr 250 mg PO TID@0900,1200,2100 calcium carbonate [Calcium 600] 600 mg calcium (1,500 mg) Tablet 600 mg PO DAILY atorvastatin 20 mg tablet 20 mg PO DAILY azelastine 137 mcg (0.1 %) spray,non-aerosol 2 spray INTRANASAL DAILY levocetirizine 5 mg tablet 5 mg PO DAILY Trulicity 3 mg/0.5 mL pen injector 3 mg SUBCUT Q7D Discharge Orders: Discharge ED (Routine); Ordered 05/15/25 Ordered By: Nerissa Bae Referrals: Juancarlos Christine DO [Primary Care Provider, [facility]] Discharge Diet: Low Salt Discharge Activity: Resume usual activity Patient Instructions: Patient Portal & Sharmila Instructions Activity Restrictions/Additional Instructions: Call Saturday to 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 At the time of this service, sometimes things are not completely delineated. Print Language: Palauan Coding Level of Care Code ED Fat Purification Worker for Colby Gonzalez
[2025-05-15 21:51] VITALS: BP 131/74; PULSE 62; O2SAT 93
--- NOTE | 2025-05-15 22:45 | ECG_ITS ---
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 Measurements Intervals [place] Rate: 57 P: 32 ME: 140 QRS: -20 QRSD: 119 T: 14 QT: 397 QTc: 387 Interpretive Statements SINUS BRADYCARDIA INCOMPLETE RIGHT BUNDLE BRANCH BLOCK [90+ ms QRS DURATION, TERMINAL R IN V1/V2, 40+ ms S IN I/aVL/V4/V5/V6] POSSIBLE LEFT VENTRICULAR HYPERTROPHY [VOLTAGE CRITERIA PLUS LAE OR QRS WIDENING] Compared to ECG 05/15/2025 19:52:18 Incomplete right bundle-branch block now present Sinus rhythm no longer present Intraventricular conduction delay no longer present Electronically Signed On 05-19-2025 00:32:23 CDT by Felix Mays M.D. [email or web address]
[2025-05-15 22:53] LABS: Troponin 5 2HR 9.70 ng/L (0-15)
[2025-05-15 22:55] LABS: Troponin 5 2HR Delta -2.30 ABS# (0-10)
[2025-05-15 23:01] VITALS: BP 143/88; PULSE 61; O2SAT 95
[2025-05-15 23:29] VITALS: BP 143/88; PULSE 71; RESP 15; O2SAT 95
== END 2025-05-15 23:30 | disposition home or self-care (01) ==
PROVIDERS: Emergency Provider Physician Assistant; PCP Electrodiagnostic Medicine
DX: R07.9 Chest pain, unspecified (principal); Z79.82 Long term (current) use of aspirin; Z79.02 Long term (current) use of antithrombotics/antiplatelets; Z79.85 Long-term (current) use of injectable non-insulin antidiabetic drugs; J44.9 Chronic obstructive pulmonary disease, unspecified; I10 Essential (primary) hypertension; Z86.73 Personal history of transient ischemic attack (TIA), and cerebral infarction without residual deficits
CPT/HCPCS: 36415; 71045; 80053; 81001; 83880; 84484; 85025; 93005; 99285; J9999

== ENCOUNTER → 2025-05-21 07:21 | Outpatient (BNVA) | payer MEDICARE, MEDICAID, SELFPAY | PROVIDERS: PCP Electrodiagnostic Medicine; Visit Provider Nurse Practitioner Family | DX: R07.89 Other chest pain (principal); Z09 Encounter for follow-up examination after completed treatment for conditions other than malignant neoplasm; I10 Essential (primary) hypertension; I45.10 Unspecified right bundle-branch block; R56.9 Unspecified convulsions; E66.9 Obesity, unspecified; Z68.41 Body mass index [BMI] 40.0-44.9, adult; Z79.02 Long term (current) use of antithrombotics/antiplatelets; Z79.82 Long term (current) use of aspirin; Z86.73 Personal history of transient ischemic attack (TIA), and cerebral infarction without residual deficits; Z87.891 Personal history of nicotine dependence | CPT/HCPCS: 99213 ==

== ENCOUNTER → 2025-06-28 10:49 | Outpatient (BNVA) | payer MEDICARE, MEDICAID, SELFPAY | PROVIDERS: PCP Electrodiagnostic Medicine; Visit Provider Dermatology | DX: D03.62 Melanoma in situ of left upper limb, including shoulder (principal); D36.14 Benign neoplasm of peripheral nerves and autonomic nervous system of thorax; L21.8 Other seborrheic dermatitis; Z86.007 Personal history of in-situ neoplasm of skin; L57.0 Actinic keratosis | CPT/HCPCS: 17000; 99214 ==

== ENCOUNTER → 2025-07-08 12:58 | Outpatient (BNVA) | payer MEDICARE, MEDICAID, SELFPAY | PROVIDERS: PCP Electrodiagnostic Medicine; Visit Provider Podiatrist Foot & Ankle Surgery | DX: E11.42 Type 2 diabetes mellitus with diabetic polyneuropathy (principal); L60.3 Nail dystrophy; L84 Corns and callosities | CPT/HCPCS: 11056; 11721 ==